=== PATIENT | female | born 1960 | race Caucasian/White ===

== ENCOUNTER 2018-06-05 16:25 | Inpatient (IN) | payer OTHER ==
[~2018-06-05] VITALS: Ht 149.9 cm; Wt 56.7 kg
[2018-06-05 16:36] VITALS: BP 154/75
--- NOTE | 2018-06-05 16:36 | NUR ---
Patient ambulated to bed 3. RN evaluating patient at bedside.
--- NOTE | 2018-06-05 16:55 | NUR ---
58 Y/O F PRESENTS TO THE ED W/C/O PAIN IN THE R UQ RADIATING TO THE R FLANK WITH NAUSEA [id number]. PT DENIES DIARRHEA. PT STATES, "I WENT TO [facility] AT THE BEGINING OF MAY AND THEY TOLD ME I HAVE A KIDNEY INFECTION. AND MY PCP TOLD ME I HAVE A URINE INFECTION." PT DENIES FEVER OR CHILLS. PT STATES PAIN IS 5/10 IN R UQ TO THE R FLANK. PT HAS PMH OF DM, KIDNEY INFECTION, AND UTI. 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 ALLERGIES TO PENICILLINS, NORCO AND MORPHINE. PT RESTING COMFORTABLY IN BED. NO S/S OF DISTRESS NOTED. SAFETY PRECAUTIONS IN PLACE. ER MADE AWARE
--- NOTE | 2018-06-05 17:00 | NUR ---
CONSET FOR BLOOD TRANSFUSION SIGNED AT THIS TIME. PT EDUCATED BY MD ON RISKS, SIDE EFFECTS, BENEFITS.
[2018-06-05] MEDS ORDERED: NACL 0.9% 1,000 ML IV SCH ×2 (17:11→19:14)
[2018-06-05] MEDS ORDERED: NACL 0.9% 1,000 ML IV ONE (17:11)
[2018-06-05] MEDS ORDERED: ONDANSETRON 4 MG/2 ML VIAL IVP ONE (17:15)
[2018-06-05] MEDS ORDERED: KETOROLAC 30 MG/ML VIAL IVP ONE (17:15)
[2018-06-05 18:05] LABS: APPEARANCE,URINE CLEAR (CLEAR); BILIRUBIN,URINE NEGATIVE (NEGATIVE); BLOOD, URINE 1+ (NEGATIVE); LEUKOCYTE ESTERASE ,URINE NEGATIVE (NEGATIVE); NITRITE, URINE NEGATIVE (NEGATIVE); UGLUCOSE TRACE (NEGATIVE)
[2018-06-05 18:06] LABS: BASOPHILS # (AUTO) 0.1 K/uL (0.00-0.22); BASOPHILS % (AUTO) 0.5 % (0.0-2.0); EOSINOPHILS # (AUTO) 0.1 K/uL (0-0.4); EOSINOPHILS % (AUTO) 0.7 % (0.0-4.0); HEMATOCRIT 21.8 % (36-48); LYMPHOCYTES # (AUTO) 1.4 K/uL (2.5-16.5); LYMPHOCYTES % (AUTO) 12.2 % (20.5-51.1); MEAN CORPUSCULAR HEMOGLOBIN 28 pg (27-31); MEAN CORPUSCULAR HGB CONC 32 g/dL (33-37); MEAN CORPUSCULAR VOLUME 88.7 fL (80-94); MONOCYTES # (AUTO) 0.8 K/uL (0.8-1.0); NEUTROPHILS % (AUTO) 79.6 % (42.2-75.2); PLATELET COUNT (AUTO) 288 K/uL (140-450); RED BLOOD CELL COUNT(AUTO) 2.46 MIL/uL (4.20-5.40); RED CELL DISTRIBUTION WIDTH 13.6 % (11.6-13.7); WHITE BLOOD COUNT (AUTO) 11.3 K/uL (4.8-10.8)
[2018-06-05 18:10] LABS: HEMOGLOBIN 6.9 g/dL (12.0-16.0)
[2018-06-05 18:20] LABS: ALBUMIN 1.5 g/dL (3.4-5.0); ANION GAP 12.6 (8-16); CARBON DIOXIDE 23.4 mmol/L (21-32); TOTAL BILIRUBIN 0.1 mg/dL (0.0-1.0)
--- NOTE | 2018-06-05 18:30 | NUR ---
PT RESTING COMFORTABLY IN BED. NO S/S OF DISTRESS NOTED
[2018-06-05 18:32] LABS: COLOR,URINE STRAW (YELLOW)
[2018-06-05 18:34] LABS: RBC,URINE 0-5 (RARE) /HPF (0-5); WBC,URINE NONE SEEN /HPF (0-5)
[2018-06-05] MEDS ORDERED: POTASSIUM CHL 30 MEQ/ D5-1/2NS 1,000 ML IV ONE (18:35)
[2018-06-05] MEDS ORDERED: ZOLPIDEM 5 MG TAB PO PRN (19:15)
[2018-06-05] MEDS ORDERED: KETOROLAC 15 MG/ML VIAL IVP PRN (19:15)
[2018-06-05] MEDS ORDERED: DOCUSATE SODIUM 100 MG GELCAP PO PRN (19:15)
[2018-06-05] MEDS ORDERED: ACETAMINOPHEN 325 MG TAB PO PRN (19:15)
--- NOTE | 2018-06-05 19:24 | NUR ---
XRAY AT BEDSIDE
[2018-06-05] MEDS ORDERED: DEXTROSE 50% 50 ML SYR IVP PRN (19:25)
--- NOTE | 2018-06-05 20:00 | NUR ---
RESIDENT AT THE BEDSIDE VASU RODRIGUEZ
[2018-06-05] MEDS: DEXT 5% / NACL 0.45% 1,000 ML IV SCH (20:10)
[2018-06-05 20:15] VITALS: BP 162/83
--- NOTE | 2018-06-05 20:15 | NUR ---
RECEIVED REPORT FROM ER NURSE LISA-SOSA. PT ARRIVED TO UNIT VIA GURNEY WITH AT BEDSIDE. PT AWAKE AND ALERT-AOX4, [place] ISLANDER SPEAKING PRIMARILY BUT CAN ALSO SPEAK SOME YI. IV SITE LEFT FA 20G-HARD STICK. IV CURRENTLY INFUSING DEXT/NACL-KCL @ 250ML WITH NS @ 100ML/HR TO DECREASE PAIN. PT TOLERATING WELL. SKIN INTACT HOWEVER EDEMATOUS ON BLE AND BUE, PITTING EDEMA +1. DISCUSSED PLAN OF CARE AND PT VERBALIZED UNDERSTANDING. WHITE BOARD UPDATED. SAFETY PRECAUTIONS IN PLACE. WILL CONTINUE TO MONITOR.
[2018-06-05 20:19] LABS: CHOL/HDL RATIO 6.6 (1-4.5); MAGNESIUM 1.2 mg/dL (1.8-2.4); PHOSPHORUS 3.5 mg/dL (2.5-4.9); THYROID STIMULATING HORMONE 7.84 uIU/mL (0.34-3.74)
[2018-06-05] MEDS ORDERED: POTASSIUM CHLORIDE 10 MEQ TABER PO ONE (20:20)
--- NOTE | 2018-06-05 20:20 | NUR ---
VITAL SIGNS TAKEN AND TOLERATED WELL. MRSA COLLECTED. NO S/S OF RESPIRATORY DISTRESS OR DISCOMFORT NOTED AT THIS TIME. WILL CONTINUE TO MONITOR.
[2018-06-05] MEDS ORDERED: LEVOFLOXACIN 750 MG/D5W PREMIX 150 ML IV SCH (20:30)
--- NOTE | 2018-06-05 20:31 | NUR ---
Patient will be admitted to care of DR. VINCENT. Admited to TELE. Will go to room 107 A. Belongings list completed. Report to ANT SWAN.
[2018-06-05 20:44] LABS: PROTHROMBIN TIME 10.7 secs (10.8-13.4)
[2018-06-05 20:56] LABS: BARBITURATE, URINE NEG. ng/ml (NEG <=200); BENZODIAZEPINE, URINE NEG. ng/mL (NEG <=200); CANNABINOID, URINE NEG. ng/mL (NEG <=50); COCAINE, URINE NEG. ng/mL (NEG <=300); OPIATE, URINE NEG. ng/mL (NEG <=2000); PHENCYCLIDINE SCREEN,URINE NEG. ng/mL (NEG <=25)
[2018-06-05] MEDS ORDERED: MAG SULF 2000 MG/WATER PREMIX 100 ML IV ONE (21:35)
[2018-06-05] MEDS ORDERED: FUROSEMIDE 40 MG/4 ML VIAL IVP SCH (21:40)
--- NOTE | 2018-06-05 21:50 | NUR ---
A SECOND IV LINE WAS ATTEMPTED BY CHARGE NURSE MARGARET SO THAT SCHEDULED MEDICATION CAN BE GIVEN IN ONE LINE AND THE BLOOD TRANSFUSION CAN BE GIVEN IN THE OTHER HOWEVER IT WAS UNSUCCESSFUL. PT IS A HARD STICK AND BLE AND BUE ARE EDEMATOUS.
[2018-06-05] MEDS: HYDROcodone/APAP 7.5/325 MG 1 TAB PO PRN (21:52)
[2018-06-05] MEDS: BLOOD GLUCOSE MONITORING 1 DEV DEV FS SCH (21:53)
--- NOTE | 2018-06-05 21:53 | NUR ---
PT C/O PAIN 04/30. NORCO WAS GIVEN AND TOLERATED WELL. WILL CONTINUE TO MONITOR.
--- NOTE | 2018-06-05 21:55 | NUR ---
BLOOD GLUCOSE 183- WILL ADMINISTER INSULIN COVERAGE.
[2018-06-05] MEDS: INSULIN LISPRO SLIDING SCALE 100 UNITS/ML VIAL SUBQ PRN (21:56)
--- NOTE | 2018-06-05 21:57 | NUR ---
INSULIN COVERAGE GIVEN. PT TOLERATED WELL. NO S/S OF RESPIRATORY DISTRESS OR DISCOMFORT NOTED AT THIS TIME. WILL CONTINUE TO MONITOR.
[2018-06-05] MEDS: metroNIDAZOLE 500 MG/NS PREMIX 100 ML IV SCH (22:00)
[2018-06-05] MEDS ORDERED: LISINOPRIL 10 MG TAB PO SCH (22:30)
--- NOTE | 2018-06-05 22:30 | NUR ---
ZESTRIL WAS GIVEN FOR INCREASED BLOOD PRESSURE. PT TOLERATED WELL. WILL CONTINUE TO MONITOR.
--- NOTE | 2018-06-05 22:45 | NUR ---
KARYN FROM [facility] AND ASKED TO FAX INFORMATIONS OF PT FOR HER SUCH H& P OR ER REPORT.SHE SAID ER FAX PT'S FACE SHEET FOR HER AND IT IS NOT ENOUGH.FAX # SHE GAVE ME [phone]. I ASKED ER ,NO BODY KNEW ANYTHING ABOUT FACE SHEET FAX.SO I TALKED TO TRICIA RN CANDY MAKER HELPER AND TOLD HER THAT I WILL NOT FAX ANY INFORMATION OF PT TO HER AND SHE CALLED AGAIN WILL TELL HER TO CALL CM IN THE MORNING.BUT SHE DIDN'T CALL BACK.
--- NOTE | 2018-06-05 23:10 | NUR ---
FIRST BAG OF RBC TRANSFUSION STARTED.
[2018-06-06] VITALS: BP 162/82
--- NOTE | 2018-06-06 01:30 | NUR ---
FIRST BAG OF RBC TRANSFUSION FINISHED. PT TOLERATED WELL. WILL ADMINISTER SECOND BAG.
--- NOTE | 2018-06-06 02:15 | NUR ---
SECOND BAG OF RBC TRANSFUSION STARTED. WILL CONTINUE TO MONITOR.
[2018-06-06 04:00] VITALS: BP 175/86
[2018-06-06] MEDS ORDERED: hydrALAZINE 25 MG TAB PO SCH (04:00)
[2018-06-06] MEDS: DEXT 5% / NACL 0.45% 1,000 ML IV SCH ×2 (04:07→12:04)
--- NOTE | 2018-06-06 05:20 | NUR ---
SECOND BAG OF RBC TRANSFUSION COMPLETED. PT TOLERATED WELL. WILL CONTINUE TO MONITOR.
[2018-06-06] MEDS: metroNIDAZOLE 500 MG/NS PREMIX 100 ML IV SCH ×3 (05:52→20:09)
--- NOTE | 2018-06-06 05:55 | NUR ---
SCHEDULED MEDICATION FLAGYL GIVEN. PT TOLERATED WELL. NO S/S OF RESPIRATORY DISTRESS OR DISCOMFORT NOTED AT THIS TIME. WILL CONTINUE TO MONITOR.
[2018-06-06] MEDS: BLOOD GLUCOSE MONITORING 1 DEV DEV FS SCH ×4 (05:56→20:56)
--- NOTE | 2018-06-06 06:00 | NUR ---
BLOOD GLUCOSE 100- NO INSULIN COVERAGE NEEDED.
--- NOTE | 2018-06-06 06:10 | NUR ---
PT C/O NAUSEA AND VOMITING. WILL ADMINISTER MEDICATION.
[2018-06-06] MEDS: HYDROcodone/APAP 7.5/325 MG 1 TAB PO PRN (06:18)
--- NOTE | 2018-06-06 06:20 | NUR ---
PT REFUSED ANTIEMETIC STATING THAT THOSE MEDICATIONS USUALLY MAKE HER VOMIT EVEN MORE. INSTEAD SHE ACCEPTED PAIN MEDICATION THAT WAS 6/10. WILL CONTINUE TO MONITOR.
--- NOTE | 2018-06-06 07:18 | NUR ---
ENDORSED PT CARE TO DAY SHIFT NURSE JASWINDER-RN FOR CONTINUITY OF CARE.
--- NOTE | 2018-06-06 07:19 | NUR ---
RECEIVED REPORT FROM ANTIQUE REFINISHER NURSE AT BEDSIDE FOR CONTINUITY OF CARE. PATIENT ASLEEP BUT AROUSABLE-AOX4, CITIZEN OF [place] SPEAKING PRIMARILY BUT CAN ALSO SPEAK SOME [place]LAND[place]. IV SITE LEFT FA 20G- PER ANTIQUE REFINISHER RN, HARD STICK. IV CURRENTLY INFUSING LEVAQUIN @100 ML/HR. PT TOLERATING WELL. SKIN INTACT HOWEVER EDEMATOUS ON BLE AND BUE, PITTING EDEMA +1. UPDATED BOARD, DISCUSSED PLAN OF CARE AND PT VERBALIZED UNDERSTANDING. ANTIQUE REFINISHER RN ENDORSED MAG RIDER 4MG. WILL RUN WHEN LEVAQUIN IVPB FINISHES. SAFETY PRECAUTIONS IN PLACE. CALL LIGHT WITHIN REACH. WILL CONTINUE TO MONITOR.
[2018-06-06 07:23] LABS: BASOPHILS # (AUTO) 0.1 K/uL (0.00-0.22); BASOPHILS % (AUTO) 1.1 % (0.0-2.0); EOSINOPHILS # (AUTO) 0.1 K/uL (0-0.4); EOSINOPHILS % (AUTO) 1.1 % (0.0-4.0); HEMATOCRIT 32.5 % (36-48); HEMOGLOBIN 10.5 g/dL (12.0-16.0); LYMPHOCYTES # (AUTO) 1.7 K/uL (2.5-16.5); LYMPHOCYTES % (AUTO) 13.4 % (20.5-51.1); MEAN CORPUSCULAR HEMOGLOBIN 29 pg (27-31); MEAN CORPUSCULAR HGB CONC 32 g/dL (33-37); MONOCYTES # (AUTO) 0.8 K/uL (0.8-1.0); MONOCYTES % (AUTO) 6.7 % (1.7-9.3); NEUTROPHILS # (AUTO) 9.6 K/uL (1.8-7.7); NEUTROPHILS % (AUTO) 77.7 % (42.2-75.2); PLATELET COUNT (AUTO) 304 K/uL (140-450); RED BLOOD CELL COUNT(AUTO) 3.61 MIL/uL (4.20-5.40); RED CELL DISTRIBUTION WIDTH 14.2 % (11.6-13.7); WHITE BLOOD COUNT (AUTO) 12.4 K/uL (4.8-10.8)
[2018-06-06 07:38] LABS: ANION GAP 13.6 (8-16); CARBON DIOXIDE 22.9 mmol/L (21-32); POTASSIUM 3.5 mmol/L (3.5-5.1)
[2018-06-06 07:51] VITALS: BP 142/73
[2018-06-06] MEDS: LISINOPRIL 10 MG TAB PO SCH (09:00)
[2018-06-06] MEDS: NICOTINE TRANSD SYS 14 MG/24 HR PATCH TD SCH (09:00)
[2018-06-06] MEDS ORDERED: LISINOPRIL 10 MG TAB PO SCH (09:00)
[2018-06-06] MEDS: LACTOBACILLUS RHAMNOSUS GG 1 EACH CAP PO SCH (09:02)
[2018-06-06] MEDS: ATORVASTATIN 20 MG TAB PO SCH (09:02)
[2018-06-06] MEDS: FUROSEMIDE 20 MG/2 ML VIAL IVP SCH ×2 (09:03→20:55)
--- NOTE | 2018-06-06 09:03 | NUR ---
WHEN DISCUSSING MEDICATIONS WITH PATIENT. PATIENT AGREED TO ALL MEDICATIONS AFTER EXPLANATIONS. DURING ADMINISTERING MEDICATIONS, PATIENT REFUSED LISINOPRIL STATING THAT IT MAKES HER NAUSEATED. PATIENT STATED SAME WITH NICOTINE PATCH. EDUCATED PATIENT ON WHY SHE WAS RECEIVING THOSE MEDICATIONS, SHE RESTATED HER REFUSAL. ORDERED MEDICATIONS GIVEN. PATIENT TOLERATED THEM WELL. SAFETY PRECAUTION IN PLACE, CALL LIGHT WITHIN REACH, WILL CONTINUE TO MONITOR PATIENT.
--- NOTE | 2018-06-06 09:12 | NUR ---
PATIENT HAS BEEN SCREENED AND CATEGORIZED MODERATE NUTRITION RISK. PATIENT WILL BE SEEN WITHIN 3-5 DAYS OF ADMISSION. 06/08/18 06/10/[address]
--- NOTE | 2018-06-06 09:20 | NUR ---
PATIENT AMBULATED TO BATHROOM ON UNSTEADY GAIT WITH AND RN ASSISTING. PATIENT VOIDED. PATIENT TIRED, RESPIRATIONS EVEN AND UNLABORED. NO SIGNS OF DISTRESS OR COMPLAINTS OF PAIN AT THE MOMENT. PATIENT CURRENTLY GETTING ULTRASOUND. WILL AWAIT FOR RESULTS. SAFETY PRECAUTION IN PLACE, CALL LIGHT WITHIN REACH, WILL CONTINUE TO MONITOR PATIENT.
--- NOTE | 2018-06-06 09:25 | NUR ---
INITIAL REVIEW ER REPORT, H&P, PROGRESS NOTE AND ADMIT ORDER TO SHAUN [phone] PHONE [phone] X [phone] JERMAINE
--- NOTE | 2018-06-06 09:26 | NUR ---
pt having procedure
--- NOTE | 2018-06-06 09:28 | NUR ---
MAG STARR ADMINISTERED. PATIENT TOLERATING IT WELL. DR. ROPER IN TO SPEAK TO THE PATIENT AND HER , HARPREET, AT BEDSIDE TO EXPLAIN PLAN OF CARE FOR TODAY, PATIENT AND HARPREET VERBALIZED UNDERSTANDING. WILL CONTINUE TO MONITOR PATIENT.
[2018-06-06] MEDS ORDERED: MAGNESIUM SULFATE 4GM in STERILE WATER 100 ML PREMIX IV SCH ×2 (10:00→13:00)
--- NOTE | 2018-06-06 10:23 | NUR ---
RECEIVED A CALL FROM MELLISSA ACQUISITIONS LOGISTICS ANALYST. SHE SAID SHE GOT A CALL FROM FARNAZ AT [facility] THAT REVIEWS TO TO [facility]. I CALLED [facility] AND SPOKE WITH MICK, THE OSWALD. FAXED INITIAL REVIEW TO HER AT [phone] PHONE MICK [phone]. SHE SAID THEY ARE FULL RISK AND REVIEWS JUST GO TO HER.
--- NOTE | 2018-06-06 11:33 | NUR ---
PHYSICAL THERAPY IN WITH PATIENT. HARPREET BY BEDSIDE. PATIENT INCONTINENT IN BED, LINENS AND GOWN CHANGED. PATIENT AMBULATED TO BATHROOM WITH WALKER WITH PHYSICAL THERAPY. WILL WAIT FOR THEIR RECOMMENDATION. WILL CONTINUE TO MONITOR PATIENT.
[2018-06-06] MEDS ORDERED: MAG SULF 2000 MG/WATER PREMIX 100 ML IV ONE (11:50)
--- NOTE | 2018-06-06 11:50 | NUR ---
ARCHIE, [employer] TECH CALLED ABOUT PATIENT'S HIDA SCAN. SHE WILL BE HERE AND START THE SCAN AT AROUND 1500. INFORMED PATIENT AND HER HARPREET, THEY VERBALIZED UNDERSTANDING. DR ROPER AWARE. PATIENT'S BLOOD SUGAR 94, NO COVERAGE NEEDED. PATIENT SITTING IN CHAIR AT SIDE OF BED. NO SIGNS OF DISTRESS OR SOB NOTED ON ROOM AIR. PATIENT DENIES PAIN OR NAUSEA. SAFETY PRECAUTION IN PLACE, WILL CONTINUE TO MONITOR PATIENT.
[2018-06-06 12:00] VITALS: BP 157/69
[2018-06-06 15:09] LABS: T4 (THYROXINE) 6.1 ug/dL (4.5-12.0)
--- NOTE | 2018-06-06 15:35 | NUR ---
PATIENT WHEELED OFF FLOOR TO GO TO RADIOLOGY FOR HIDA SCAN. PATIENT IN STABLE CONDITION.
[2018-06-06] MEDS ORDERED: MORPHINE SULFATE 2 MG/ML SYR IVP PRN (15:45)
--- NOTE | 2018-06-06 17:15 | NUR ---
PATIENT BACK FROM HIDA SCAN. WILL WAIT FOR RESULTS. INFORMED MD TO SEE IF PATIENT CAN HAVE DINNER. WAITING FOR ORDERS.
[2018-06-06 17:30] VITALS: BP 173/89
--- NOTE | 2018-06-06 17:55 | NUR ---
DR JOSHI Y IN TO SEE THE PATIENT. WILL AWAIT FOR HIS RECOMMENDATIONS.
--- NOTE | 2018-06-06 18:05 | NUR ---
PATIENT WHEELED OFF TO XRAY FOR LAST HIDA SCAN PICTURE.
--- NOTE | 2018-06-06 18:20 | NUR ---
PATIENT BACK FROM RADIOLOGY. CARDIAC DINNER BROUGHT FROM DIETARY, PATIENT SITTING UP ON SIDE OF BED EATING DINNER. WILL CONTINUE TO MONITOR PATIENT.
--- NOTE | 2018-06-06 19:20 | NUR ---
REPORT GIVEN TO SECURITY INSTALLATION TECHNICIAN NURSE AT BEDSIDE FOR CONTINUITY OF CARE. PATIENT IN STABLE CONDITION. FAMILY AT BEDSIDE.
--- NOTE | 2018-06-06 19:21 | NUR ---
RECEIVED REPORT FROM DAY SHIFT NURSE JASWINDER-RN AT BEDSIDE FOR CONTINUITY OF CARE. PT-AOX4, BHUTANESE SPEAKING PRIMARILY BUT CAN ALSO SPEAK SOME NIGERIEN. FAMILY AT BEDSIDE. IV SITE LEFT FA 20G- HARD STICK. IV KCL @250ML AND NS 0.9% @100 ML/HR. PT TOLERATING WELL. SKIN INTACT HOWEVER EDEMATOUS ON BLE AND BUE, PITTING EDEMA +1. UPDATED BOARD, DISCUSSED PLAN OF CARE AND PT VERBALIZED UNDERSTANDING. SAFETY PRECAUTIONS IN PLACE. CALL LIGHT WITHIN REACH. WILL CONTINUE TO MONITOR.
[2018-06-06 20:00] VITALS: BP 183/96
--- NOTE | 2018-06-06 20:00 | NUR ---
VITAL SIGNS TAKEN AND TOLERATED WELL. BLOOD PRESSURE ELEVATED-WILL MEDICATE. NO S/S OF RESPIRATORY DISTRESS OR DISCOMFORT. WILL CONTINUE TO MONITOR.
--- NOTE | 2018-06-06 20:10 | NUR ---
SCHEDULED MEDICATION FLAGYL ADMINISTERED. NO S/S OF RESPIRATORY DISTRESS OR DISCOMFORT NOTED AT THIS TIME. WILL CONTINUE TO MONITOR.
[2018-06-06] MEDS: hydrALAZINE 20 MG/ML VIAL IVP PRN (20:56)
[2018-06-06] MEDS: INSULIN LISPRO SLIDING SCALE 100 UNITS/ML VIAL SUBQ PRN (21:08)
--- NOTE | 2018-06-06 21:10 | NUR ---
SCHEDULED MEDICATION LASIX, APRESOLINE FOR ELEVATED BP GIVEN. BLOOD GLUCOSE 183-INSULIN COVERAGE GIVEN AND TOLERATED WELL. NO S/S OF RESPIRATORY DISTRESS OR DISCOMFORT NOTED AT THIS TIME. WILL CONTINUE TO MONITOR.
[2018-06-06] MEDS: LEVOFLOXACIN 750 MG/D5W PREMIX 150 ML IV SCH (21:43)
--- NOTE | 2018-06-06 21:45 | NUR ---
SCHEDULED MEDICATION LEVAQUIN GIVEN AND TOLERATED WELL. NO S/S OF RESPIRATORY DISTRESS OR DISCOMFORT NOTED AT THIS TIME. WILL CONTINUE TO MONITOR.
--- NOTE | 2018-06-06 22:10 | NUR ---
PT C/O INSOMNIA. AMBIEN GIVEN AND TOLERATED WELL. NO S/S OF RESPIRATORY DISTRESS OR DISCOMFORT NOTED AT THIS TIME. WILL CONTINUE TO MONITOR.
[2018-06-07] VITALS: BP 138/54
--- NOTE | 2018-06-07 | NUR ---
VITAL SIGNS TAKEN AND TOLERATED WELL. NO S/S OF RESPIRATORY DISTRESS OR DISCOMFORT NOTED AT THIS TIME. WILL CONTINUE TO MONITOR.
--- NOTE | 2018-06-07 02:00 | NUR ---
PT SLEEPING AT THIS TIME. NO S/S OF RESPIRATORY DISTRESS OR DISCOMFORT NOTED AT THIS TIME. WILL CONTINUE TO MONITOR.
[2018-06-07 04:00] VITALS: BP 166/70
--- NOTE | 2018-06-07 04:00 | NUR ---
VITAL SIGNS TAKEN AND TOLERATED WELL. BP BEGINNING TO RISE AGAIN. NO S/S OF RESPIRATORY DISTRESS OR DISCOMFORT NOTED AT THIS TIME. WILL CONTINUE TO MONITOR.
[2018-06-07] MEDS: DEXT 5% / NACL 0.45% 1,000 ML IV SCH (04:12)
[2018-06-07] MEDS: metroNIDAZOLE 500 MG/NS PREMIX 100 ML IV SCH ×3 (04:12→20:03)
--- NOTE | 2018-06-07 04:15 | NUR ---
SCHEDULED MEDICATION FLAGYL GIVEN AND TOLERATED WELL. NO S/S OF RESPIRATORY DISTRESS OR DISCOMFORT NOTED AT THIS TIME. WILL CONTINUE TO MONITOR.
--- NOTE | 2018-06-07 04:45 | NUR ---
RACK WORKER STEPHEN INITIATED NEW IV SITE ON LEFT HAND 24G DUE TO LEFT FA BECOMING INFILTRATED. PT TOLERATED WELL.
[2018-06-07] MEDS: BLOOD GLUCOSE MONITORING 1 DEV DEV FS SCH ×4 (05:40→19:59)
--- NOTE | 2018-06-07 05:40 | NUR ---
BLOOD GLUCOSE 112-NO INSULIN COVERAGE NEEDED.
--- NOTE | 2018-06-07 07:29 | NUR ---
RECEIVED BEDSIDE REPORT FROM SOSA DEE. PT AWAKE IN BED ABLE TO MAKE NEEDS KNOWN. ON RA, PT IS NPO SINCE MIDNIGHT FOR HIDA SCAN. V/S TAKEN TOLERATED WELL. IV IN LEFT WRIST 24 G PATENT, PT C/O PAIN 3/10 IN RIGHT SIDE. WILL MEDICATE ACCORDING TO DRS ORDER. CALL RADIOLOGY TO CONSULT WITH PAIN MANAGEMENT PRIOR TO HIDA SCAN, RADIOLOGY GHAZAL STATED I WILL RECEIVE CALL BACK. EXPLAINED PLAN OF CARE TO PT, CALL WITHIN REACH WILL CONTINUE TO MONITOR. Addendum: 06/07/18 at 0858 by Myriam Hager RN ERROR PT HAD HIDA SCAN 06/06
--- NOTE | 2018-06-07 07:29 | NUR ---
ENDORSED PT CARE TO DAY SHIFT NURSE SUMMER-RN FOR CONTINUITY OF CARE.
[2018-06-07 08:31] VITALS: BP 163/84
[2018-06-07] MEDS: NICOTINE TRANSD SYS 14 MG/24 HR PATCH TD SCH (09:00)
[2018-06-07] MEDS: FUROSEMIDE 20 MG/2 ML VIAL IVP SCH (09:21)
[2018-06-07] MEDS: LACTOBACILLUS RHAMNOSUS GG 1 EACH CAP PO SCH (09:21)
[2018-06-07] MEDS: LISINOPRIL 10 MG TAB PO SCH (09:21)
[2018-06-07] MEDS: ATORVASTATIN 20 MG TAB PO SCH (09:22)
[2018-06-07] MEDS: CARVEDILOL 3.125 MG TAB PO SCH ×2 (09:23→20:51)
--- NOTE | 2018-06-07 09:27 | NUR ---
PT REFUSED NICOTINE PATCH AND TORADOL Addendum: 06/07/18 at 1251 by Myriam Hager RN PT STATES SHE DOES NOT NEED NICOTINE PATCH ANYMORE SHE HAS QUIET SMOKING WITHOUT IT, PT WILL TRY TO RELAX STATES PAIN MEDICATION MAKES HER SEE THINGS. OFFERED WARM BLANKET FOR PAIN MANAGEMENT AND REPOSITIONED FOR COMFORT.
[2018-06-07 10:03] LABS: BASOPHILS % (AUTO) 0.4 % (0.0-2.0); EOSINOPHILS # (AUTO) 0.1 K/uL (0-0.4); EOSINOPHILS % (AUTO) 0.9 % (0.0-4.0); HEMATOCRIT 32.5 % (36-48); HEMOGLOBIN 10.7 g/dL (12.0-16.0); LYMPHOCYTES # (AUTO) 1.1 K/uL (2.5-16.5); LYMPHOCYTES % (AUTO) 11.4 % (20.5-51.1); MEAN CORPUSCULAR HEMOGLOBIN 29 pg (27-31); MEAN CORPUSCULAR HGB CONC 33 g/dL (33-37); MEAN CORPUSCULAR VOLUME 88.6 fL (80-94); MONOCYTES # (AUTO) 0.9 K/uL (0.8-1.0); MONOCYTES % (AUTO) 9.2 % (1.7-9.3); NEUTROPHILS # (AUTO) 7.7 K/uL (1.8-7.7); NEUTROPHILS % (AUTO) 78.1 % (42.2-75.2); PLATELET COUNT (AUTO) 312 K/uL (140-450); RED BLOOD CELL COUNT(AUTO) 3.67 MIL/uL (4.20-5.40); RED CELL DISTRIBUTION WIDTH 14.3 % (11.6-13.7); WHITE BLOOD COUNT (AUTO) 9.9 K/uL (4.8-10.8)
[2018-06-07 10:26] LABS: ANION GAP 12.2 (8-16); CARBON DIOXIDE 22.3 mmol/L (21-32); CREATININE 1.1 mg/dL (0.6-1.3); POTASSIUM 3.5 mmol/L (3.5-5.1)
[2018-06-07 10:34] LABS: MAGNESIUM 1.9 mg/dL (1.8-2.4); PHOSPHORUS 3.5 mg/dL (2.5-4.9)
--- NOTE | 2018-06-07 10:40 | NUR ---
PT AMBULATED AROUND ROOM X1 TOLERATED WELL, URINATED X1 NO BM. PT ATE BREAKFAST TOLERATED WELL. PT REQUESTED TO AMBULATE AROUND ROOM. CALL LIGHT WITHIN REACH WILL CONTINUE TO MONITOR.
[2018-06-07] MEDS: NACL 0.9% 1,000 ML IV SCH (11:23)
--- NOTE | 2018-06-07 11:52 | NUR ---
ELEVATED PTS LEGS WITH TWO PILLOWS PER MD REQUEST.
[2018-06-07 12:00] VITALS: BP 160/73
[2018-06-07] MEDS ORDERED: ALBUTEROL SULFATE/IPRATROPIU 3 ML SOL IH PRN (12:10)
--- NOTE | 2018-06-07 13:20 | NUR ---
PT HAD ONE LARGE BM, COLLECTED STOOL SAMPLE FOR OCCULT BLOOD. SENT TO LAB.
[2018-06-07] MEDS: ALBUTEROL SULFATE/IPRATROPIU 3 ML SOL IH SCH ×2 (13:21→19:03)
--- NOTE | 2018-06-07 13:54 | NUR ---
CM NOTE CONCURRENT REVIEW FAXED TO [facility] [phone] [facility] # [phone]
--- NOTE | 2018-06-07 15:00 | NUR ---
STOPPED IV FLUIDS AND REMOVED BEDSIDE WATER FROM PTS ROOM PER MD ORDER.
[2018-06-07] MEDS ORDERED: LANTUS SC ×2 (15:49)
[2018-06-07] MEDS ORDERED: FERR325E14 PO (15:49)
[2018-06-07] MEDS ORDERED: SIMV20TA1 PO (15:49)
[2018-06-07] MEDS ORDERED: BENA20TA PO (15:49)
[2018-06-07] MEDS ORDERED: ASPI81CT89 PO (15:51)
[2018-06-07 16:00] VITALS: BP 186/86
--- NOTE | 2018-06-07 16:00 | NUR ---
PT BP 182/84 HR 102 REASSESSED BP 186/86 HR 103. WILL MEDICATE WITH HYDRALAZINE ACCORDING TO DRS ORDER.
[2018-06-07] MEDS: hydrALAZINE 20 MG/ML VIAL IVP PRN ×2 (16:01→17:19)
--- NOTE | 2018-06-07 16:07 | NUR ---
PHYSICAL THERAPY CO-SIGN The Physical Therapy Progress Notes documented by Parts Room Assistant have been reviewed. Reviewed/Co-Signed by: Lupe Hughes PT Documentation Done by:ANA DARBY DISABILITY RATER POC REVIEWED W/ DISABILITY RATER; WILL BENEFIT W/ P.T. AFTER ACUTE STAY, PEDIATRIC/SUZY FWW FOR HOME USE. Addendum: 06/07/18 at 1608 by Lupe Hughes PT Amended: Links added.
[2018-06-07] MEDS ORDERED: INSULIN LANTUS 100 UNITS/ML 10 ML VIAL SUBQ SCH (17:00)
--- NOTE | 2018-06-07 17:01 | NUR ---
PT REASSESSED AFTER HYDRALAZINE GIVEN, BP: 148/54 HR 108. WILL CONTINUE TO MONITOR, CALL LIGHT WITHIN REACH.
--- NOTE | 2018-06-07 17:25 | NUR ---
PT REFUSED DUE MEDICATION STATED "NO, NO MORE MEDICATIONS". WILL HOLD DUE INSULIN.
[2018-06-07] MEDS: ONDANSETRON 4 MG/2 ML VIAL IM/IVP PRN (18:56)
--- NOTE | 2018-06-07 19:18 | NUR ---
ENDORSED PT TO SOSA DEE, PT LUANN.
--- NOTE | 2018-06-07 19:19 | NUR ---
RECEIVED REPORT FROM DAY SHIFT NURSE MARIAN-RN AT BEDSIDE FOR CONTINUITY OF CARE. PT-AOX4, SYRIAC SPEAKING PRIMARILY BUT CAN ALSO SPEAK SOME TAMAZIGHT. FAMILY AT BEDSIDE. IV SITE LEFT WRIST 24G- HARD STICK AND SL. SKIN INTACT HOWEVER EDEMATOUS ON BLE AND BUE, PITTING EDEMA +1. UPDATED BOARD, DISCUSSED PLAN OF CARE AND PT VERBALIZED UNDERSTANDING. SAFETY PRECAUTIONS IN PLACE. CALL LIGHT WITHIN REACH. WILL CONTINUE TO MONITOR.
--- NOTE | 2018-06-07 19:50 | NUR ---
BLOOD GLUCOSE 128-NO INSULIN COVERAGE NEEDED.
[2018-06-07 20:00] VITALS: BP 150/64
--- NOTE | 2018-06-07 20:00 | NUR ---
VITAL SIGNS TAKEN AND TOLERATED WELL. NO S/S OF RESPIRATORY DISTRESS OR DISCOMFORT NOTED AT THIS TIME. WILL CONTINUE TO MONITOR.
--- NOTE | 2018-06-07 20:05 | NUR ---
SCHEDULED MEDICATION FLAGYL GIVEN AND TOLERATED WELL. NO S/S OF RESPIRATORY DISTRESS OR DISCOMFORT NOTED AT THIS TIME. WILL CONTINUE TO MONITOR.
--- NOTE | 2018-06-07 20:55 | NUR ---
SCHEDULED MEDICATION COREG GIVEN AND TOLERATED WELL. NO S/S OF RESPIRATORY DISTRESS OR DISCOMFORT NOTED AT THIS TIME. WILL CONTINUE TO MONITOR.
[2018-06-07] MEDS ORDERED: SIMVASTATIN 20 MG TAB PO SCH (21:00)
[2018-06-07] MEDS: LEVOFLOXACIN 750 MG/D5W PREMIX 150 ML IV SCH (22:13)
--- NOTE | 2018-06-07 22:15 | NUR ---
SCHEDULED MEDICATION LEVAQUIN GIVEN AND TOLERATED WELL. NO S/S OF RESPIRATORY DISTRESS OR DISCOMFORT NOTED AT THIS TIME. WILL CONTINUE TO MONITOR.
--- NOTE | 2018-06-07 23:45 | NUR ---
VITAL SIGNS TAKEN AND TOLERATED WELL. NO S/S OF RESPIRATORY DISTRESS. PT C/O PAIN 04/30-WILL MEDICATE.
[2018-06-07] MEDS: HYDROcodone/APAP 7.5/325 MG 1 TAB PO PRN (23:48)
--- NOTE | 2018-06-07 23:50 | NUR ---
PT C/O PAIN 04/30-MEDICATED WITH NORCO. PT TOLERATED WELL. NO S/S OF RESPIRATORY DISTRESS NOTED AT THIS TIME. WILL CONTINUE TO MONITOR.
[2018-06-08] VITALS: BP 164/66
--- NOTE | 2018-06-08 02:00 | NUR ---
PT RESTING IN BED TALKING WITH PT IN BED B. PT REQUESTING CHICKEN BOUILLON SOUP TO WARM UP. GIVEN AND PT TOLERATED WELL. NO S/S OF RESPIRATORY DISTRESS OR DISCOMFORT NOTED AT THIS TIME. WILL CONTINUE TO MONITOR.
[2018-06-08] MEDS: NACL 0.9% 1,000 ML IV SCH (02:55)
--- NOTE | 2018-06-08 03:25 | NUR ---
PT C/O NAUSEA CAUSED BY NORCO PAIN MEDICATION GIVEN EARLIER. WILL MEDICATE WITH ZOFRAN.
[2018-06-08] MEDS: ONDANSETRON 4 MG/2 ML VIAL IM/IVP PRN (03:28)
--- NOTE | 2018-06-08 03:30 | NUR ---
MEDICATED PT WITH ZOFRAN FOR NAUSEA AND VOMITING. WILL CONTINUE TO MONITOR.
[2018-06-08 04:00] VITALS: BP 150/65
--- NOTE | 2018-06-08 04:00 | NUR ---
VITAL SIGNS TAKEN AND TOLERATED WELL. NO S/S OF RESPIRATORY DISTRESS OR DISCOMFORT NOTED AT THIS TIME. WILL CONTINUE TO MONITOR.
[2018-06-08] MEDS: metroNIDAZOLE 500 MG/NS PREMIX 100 ML IV SCH (04:37)
--- NOTE | 2018-06-08 04:40 | NUR ---
SCHEDULED MEDICATION FLAGYL GIVEN AND TOLERATED WELL. NO S/S OF RESPIRATORY DISTRESS OR DISCOMFORT NOTED AT THIS TIME. WILL CONTINUE TO MONITOR.
--- NOTE | 2018-06-08 04:45 | NUR ---
BLOOD GLUCOSE 110-NO INSULIN COVERAGE NEEDED.
--- NOTE | 2018-06-08 06:00 | NUR ---
PT SLEEPING IN BED. NO S/S OF RESPIRATORY DISTRESS OR DISCOMFORT NOTED AT THIS TIME. WILL CONTINUE TO MONITOR.
[2018-06-08] MEDS: BLOOD GLUCOSE MONITORING 1 DEV DEV FS SCH ×2 (06:04→12:22)
--- NOTE | 2018-06-08 07:09 | NUR ---
ENDORSED PT CARE TO DAY SHIFT NURSE EDUARD FOR CONTINUITY OF CARE
--- NOTE | 2018-06-08 07:15 | NUR ---
RECEIVED PT FROM EYE SURGEON NURSE, PT IS AWAKE AND LYING ON THE BED, SIDE RAILS ARE UP AND CALL LIGHT WITHIN REACH. PT HAS AN IV LINE ON THE LEFT WRIST G. 24 AND NON-INTACT. IV LINE WAS REMOVED. NO SIGNNOF DSITRESS NOTED ON THE PT. WILL CONTINUE TO MONITOR.
[2018-06-08] MEDS: ALBUTEROL SULFATE/IPRATROPIU 3 ML SOL IH SCH ×2 (07:26→13:17)
--- NOTE | 2018-06-08 07:30 | NUR ---
AWAKE AND ALERT RESPONSIVE HHN THERAPY NOT GIVEN DUE TO NAUSEA HARLEY/RN NOTIFIED
[2018-06-08 07:54] LABS: BASOPHILS # (AUTO) 0.1 K/uL (0.00-0.22); BASOPHILS % (AUTO) 0.9 % (0.0-2.0); EOSINOPHILS # (AUTO) 0.1 K/uL (0-0.4); EOSINOPHILS % (AUTO) 1.2 % (0.0-4.0); HEMOGLOBIN 9.9 g/dL (12.0-16.0); LYMPHOCYTES # (AUTO) 1.4 K/uL (2.5-16.5); LYMPHOCYTES % (AUTO) 16.1 % (20.5-51.1); MEAN CORPUSCULAR HEMOGLOBIN 30 pg (27-31); MEAN CORPUSCULAR HGB CONC 33 g/dL (33-37); MEAN CORPUSCULAR VOLUME 89.7 fL (80-94); MONOCYTES % (AUTO) 11.1 % (1.7-9.3); NEUTROPHILS # (AUTO) 6.2 K/uL (1.8-7.7); NEUTROPHILS % (AUTO) 70.7 % (42.2-75.2); PLATELET COUNT (AUTO) 260 K/uL (140-450); RED BLOOD CELL COUNT(AUTO) 3.34 MIL/uL (4.20-5.40); RED CELL DISTRIBUTION WIDTH 14.7 % (11.6-13.7); WHITE BLOOD COUNT (AUTO) 8.7 K/uL (4.8-10.8)
[2018-06-08 08:00] VITALS: BP 153/84
[2018-06-08 08:21] LABS: ANION GAP 11.7 (8-16); CARBON DIOXIDE 23.4 mmol/L (21-32); CREATININE 1.2 mg/dL (0.6-1.3); POTASSIUM 3.1 mmol/L (3.5-5.1)
[2018-06-08 08:32] LABS: MAGNESIUM 1.5 mg/dL (1.8-2.4); PHOSPHORUS 4.1 mg/dL (2.5-4.9)
--- NOTE | 2018-06-08 08:40 | NUR ---
PT WAS TRANSFERRED TO [facility], HEART MONITOR WAS REMOVED AND PLACED IN THE BASKET BIN.
--- NOTE | 2018-06-08 08:46 | NUR ---
INFORMED DR. ROPER OF THE PT'S POTASSIUM LEVEL WHICH IS 3.3 AND MAGNESIUM LEVEL OF 1.1. MD ACKNOWLEDGED AND WILL PLACE AN ORDER.
[2018-06-08] MEDS ORDERED: MAG SULF 2000 MG/WATER PREMIX 50 ML IV ONE (08:50)
[2018-06-08] MEDS ORDERED: INSULIN LANTUS 100 UNITS/ML 10 ML VIAL SUBQ SCH (09:00)
[2018-06-08] MEDS ORDERED: KCL 20 MEQ/WATER INJ PREMIX 100 ML IV SCH (09:00)
[2018-06-08] MEDS ORDERED: FUROSEMIDE 20 MG/2 ML VIAL IVP SCH (09:00)
[2018-06-08] MEDS ORDERED: BENAZEPRIL 20 MG TAB PO SCH (09:00)
[2018-06-08] MEDS: NICOTINE TRANSD SYS 14 MG/24 HR PATCH TD SCH (09:00)
[2018-06-08] MEDS ORDERED: FERROUS SULFATE 325 MG TABEC PO SCH (09:00)
[2018-06-08] MEDS ORDERED: ASPIRIN 81 MG TAB.CHEW PO SCH (09:00)
[2018-06-08] MEDS: ATORVASTATIN 20 MG TAB PO SCH (09:37)
[2018-06-08] MEDS: LACTOBACILLUS RHAMNOSUS GG 1 EACH CAP PO SCH (09:38)
[2018-06-08] MEDS: CARVEDILOL 3.125 MG TAB PO SCH (09:38)
--- NOTE | 2018-06-08 10:31 | NUR ---
CHARGE NURSE KATHRYN, ASSISTED IN STARTING AN IV LINE TO THE PT, ATTEMPTED 2X BUT PT REFUSED TO HAVE ABN IV LINE INSERTED. DR. ROPER INFORMED OF THE PT'S REFUSAL.
--- NOTE | 2018-06-08 10:58 | NUR ---
MIGUELITO FROM CASE MANAGEMENT CALLED AND INFORMED THAT THE PT WAS ACCEPTED BY [facility] IS A HOME [facility] AND SAID THAT THE PT NEEDS TO MAKE A FOLLOW TO A OVERNIGHT ASSOCIATE, DR. PRADO AND CALL THE OFFICE FOR AN APPOINTMENT. MD'S CONTACT NO. AND ADDRESS WAS WRITTEN DOWN ON THE DISCHARGE PAPERS AND PT AND WAS INFORMED ABOUT IT. PT AND VERBALIZED UNDERSTANDING.
--- NOTE | 2018-06-08 11:06 | NUR ---
OSWALD ROWLEY RECEIVED ORDER FOR HH. FAXED ORDER TO [facility] [phone] AND SPOKE WITH OSWALD JEFFERS PH# AND GAVE HER A VERBAL CLINICAL UPDATE ON THE PATIENT AND SHE SAID TO JUST FAX HER PROGRESS NOTES AND DC SUMMARY. FAXED PROGRESS NOTES AND DC SUMMARY TO [facility]. PER [facility] OSWALD JEFFERS, PATIENT'S HH HAS BEEN ARRANGED WITH [facility] PH# [phone] AND THAT THEY ARE AWARE THAT PATIENT IS BEING DISCHARGED TODAY. PER OSWALD JEFFERS, PATIENT WILL HAVE TO CALL DR. PRADO'S CLINIC TO SET UP FOR GI OUTPATIENT FOLLOW UP PH# [phone], ADDRESS: [address] [place] [address]. HARLEY SWAN AWARE.
[2018-06-08] MEDS ORDERED: POTASSIUM CHLORIDE 10 MEQ TABER PO SCH (11:30)
[2018-06-08] MEDS ORDERED: MAGNESIUM OXIDE 400 MG TAB PO SCH (11:30)
--- NOTE | 2018-06-08 11:33 | NUR ---
CALLED AND SPOKE TO DR. ROPER AND INFORMED HIM THAT THE PT'S LASIX IN THE EMAR SHOULD BE GIVEN IV PUSH BUT THE PT ALREADY REFUSED TO HAVE AN IV LINE INSERTED. DR. ROPER SAID THAT HE WILL MODIFY THE ORDER FOR THE SAID MEDICATIONS NAMELY LASIX, MAGNESIUM AND POTASSIUM, WILL CHANGE THE ROUTE FROM IV TO ORAL. ACKNOWLEDGED AND WILL FOLLOW THROUGH WITH THE MD ORDER.
[2018-06-08] MEDS ORDERED: SIMV20TA1 PO (11:39)
[2018-06-08] MEDS ORDERED: BENA20TA PO (11:39)
[2018-06-08] MEDS ORDERED: ASPI81CT89 PO (11:39)
[2018-06-08] MEDS ORDERED: LANTUS SC ×2 (11:39)
[2018-06-08] MEDS ORDERED: CARV3.122 PO (11:39)
[2018-06-08] MEDS ORDERED: FURO-572 PO (11:39)
[2018-06-08] MEDS ORDERED: FERR325E14 PO (11:39)
[2018-06-08] MEDS ORDERED: LEVO750T2 PO (11:42)
[2018-06-08] MEDS ORDERED: ASCO1CAP75 PO (11:42)
[2018-06-08 12:00] VITALS: BP 148/80
[2018-06-08] MEDS ORDERED: FUROSEMIDE 40 MG TAB PO SCH (12:00)
[2018-06-08] MEDS ORDERED: MAGNESIUM SULFATE 1GM in DEXTROSE 5% 100 ML PREMIX IV SCH (12:00)
--- NOTE | 2018-06-08 14:13 | NUR ---
PHYSICAL THERAPY CO-SIGN The Physical Therapy Progress Notes documented by Raw Finish Mill Operator have been reviewed. I CONCUR W/BEAM WARPER NOTE; CONT PER TX PLAN Reviewed/Co-Signed by: Samira Miramontes, PT Documentation Done by: FENG FUENTES, BEAM WARPER Addendum: 06/08/18 at 1414 by Samira Miramontes PT Amended: Links added.
--- NOTE | 2018-06-08 14:50 | NUR ---
DISCHARGED PTY OF THE VIA WHEELCHAIR AND BEING WHEELED BY NEHA BARNES. DISCHARGED INSTRUCTIONS, TEACHING AND MEDICATION PRESCRIPTION GIVEN AND DISCUSSED FOLLOW UP APPOINTMENT TO THE GI MD. PT AND VERBALIZED UNDERSTANDING. ARM BANDS AND IV LINE REMOVED. PT IS STABLE AT THIS TIME.
[2018-06-09 10:02] LABS: FERRITIN 685 ng/mL (15-150); TRANSFERRIN 153 mg/dL (200-370)
== END 2018-06-08 14:50 | disposition home or self-care (01) | DRG 720 ==
LOC: MED 16:25 → MTU 19:19
PROVIDERS: ADMIT General Practice; ATTEND General Practice
PROC: 30233N1 Transfusion of Nonautologous Red Blood Cells into Peripheral Vein, Percutaneous Approach (ICD-10-PCS; principal; 2018-06-05)
DX: A41.9 Sepsis, unspecified organism (principal); N17.0 Acute kidney failure with tubular necrosis; E43 Unspecified severe protein-calorie malnutrition; I50.43 Acute on chronic combined systolic (congestive) and diastolic (congestive) heart failure; J18.9 Pneumonia, unspecified organism; E87.8 Other disorders of electrolyte and fluid balance, not elsewhere classified; I11.0 Hypertensive heart disease with heart failure; K86.1 Other chronic pancreatitis; E46 Unspecified protein-calorie malnutrition; E11.65 Type 2 diabetes mellitus with hyperglycemia; D64.9 Anemia, unspecified; E83.42 Hypomagnesemia; E87.6 Hypokalemia; F17.210 Nicotine dependence, cigarettes, uncomplicated; E78.5 Hyperlipidemia, unspecified; J98.11 Atelectasis; N13.30 Unspecified hydronephrosis; R31.9 Hematuria, unspecified; F17.200 Nicotine dependence, unspecified, uncomplicated; L92.9 Granulomatous disorder of the skin and subcutaneous tissue, unspecified; E77.8 Other disorders of glycoprotein metabolism; K80.42 Calculus of bile duct with acute cholecystitis without obstruction; E83.51 Hypocalcemia; T38.3X5A Adverse effect of insulin and oral hypoglycemic [antidiabetic] drugs, initial encounter; Z68.25 Body mass index [BMI] 25.0-25.9, adult; Z79.4 Long term (current) use of insulin; Z88.0 Allergy status to penicillin; Z88.5 Allergy status to narcotic agent; Z88.8 Allergy status to other drugs, medicaments and biological substances; Z83.3 Family history of diabetes mellitus; Y92.89 Other specified places as the place of occurrence of the external cause
CPT/HCPCS: 36415; 71045; 76604; 76705; 76856; 78445; 80048; 80053; 80305; 81001; 82140; 82150; 82272; 82550; 82607; 82728; 82746; 82948; 83036; 83540; 83605; 83690; 83735; 83880; 84100; 84134; 84436; 84443; 84484; 84703; 85025; 85045; 85610; 85730; 86886; 86900; 86901; 86920; 87040; 87081; 87086; 94640; 96360; 97110; 97116; 97140; 97530; 97535; 99285; A9510; J0360; J1815; J1885; J1940; J1956; J2405; J3475; J3480; J3490; J7030; J7620; P9016; Q0092

== ENCOUNTER 2018-07-08 22:18 | Inpatient (IN) | payer OTHER ==
[~2018-07-08] VITALS: Ht 134.6 cm; Wt 44.5 kg
[~2018-07-08 22:18] MED LIST: ASCO1CAP75 PO; ASPI81CT89 PO; BENA20TA PO; CARV3.122 PO; FERR325E14 PO; FURO-572 PO; LANTUS SC; LEVO750T2 PO; SIMV20TA1 PO
[2018-07-08 22:29] VITALS: BP 126/64
--- NOTE | 2018-07-08 22:31 | NUR ---
TO [facility], A/W BED, VIA W/C ERMD NOTED
--- NOTE | 2018-07-09 00:36 | NUR ---
PT C/O LOWER QUADRANT ABD PAIN STARTING TODAY, +NVD, BLOOD IN EMESIS, BRIGHT RED. PT IS IN DISTRESS. ABD SOFT, TENDER. NO EVIDENCE OF DISTRENSION. PT DIARRHEA IS GREEN. 10/10 ACHING PAIN
[2018-07-09] MEDS ORDERED: OCTREOTIDE ACETATE 100 MCG/ML VIAL SUBQ ONE (00:50)
[2018-07-09] MEDS ORDERED: ONDANSETRON 4 MG/2 ML VIAL ONE ×2 (00:52→01:09)
[2018-07-09] MEDS ORDERED: OCTREOTIDE ACETATE 1000 MCG/5 ML VIAL ONE (01:01)
[2018-07-09] MEDS ORDERED: METOCLOPRAMIDE 10 MG/2 ML INJ VIAL ONE ×2 (01:14→01:33)
--- NOTE | 2018-07-09 01:15 | NUR ---
PT IS A DIFFICULT STICK. AFTER MULTIPLE IV ATTEMPTS, I ESTABLISHED A 22GA IV HEP LOCK TO RT HAND. PT CONTINUES TO HAVE ABD PAIN WITH 50-70 ML OF COFFEE GROUND EMESIS NOTED. PT SKIN PALE/GURDEEP/COOL. ER MD DR FRANKLIN AT BEDSIDE FOR EVAL.
--- NOTE | 2018-07-09 01:30 | NUR ---
TIME OUT CALL FOR INSERTION OF TRIPLE LUMEN CENTRAL LINE CATHETER BY ER MD CAO, RN MARCIA, RN DAYANNA, EMT SOLIS AT BEDSIDE. ST W/O ECT NOTED. VSS AT THIS TIME
[2018-07-09] MEDS ORDERED: LORazepam 2 MG/ML VIAL ONE (01:32)
[2018-07-09] MEDS ORDERED: METOCLOPRAMIDE 10 MG/2 ML INJ VIAL IVP ONE (01:35)
[2018-07-09] MEDS ORDERED: ONDANSETRON 4 MG/2 ML VIAL IVP ONE (01:35)
--- NOTE | 2018-07-09 01:35 | NUR ---
PT C/O MODERATE NAUSEA. NOTED MIN AMT CLEAR YELLOW EMESIS. HOB ELEVATED, PROVIDED WITH EMESIS BAG. WILL ADMINISTER IV ZOFRAN. ICE CHIPS PROVIDED FOR COMFORT. Addendum: 07/18/18 at 1345 by Binta Alicia RN NOTE ENTERED AT WRONG TIME. NOTE INTENDED FOR 07/09/18 @ 4822.
--- NOTE | 2018-07-09 01:45 | NUR ---
LAB SENT TO LAB Addendum: 07/09/18 at 0501 by MEDRJJ BLOOD SENT TO LAB.
[2018-07-09 02:00] LABS: HEMATOCRIT 28.1 % (36-48); MEAN CORPUSCULAR HEMOGLOBIN 29 pg (27-31); MEAN CORPUSCULAR HGB CONC 32 g/dL (33-37); MEAN CORPUSCULAR VOLUME 88.8 fL (80-94); PLATELET COUNT (AUTO) 316 K/uL (140-450); RED BLOOD CELL COUNT(AUTO) 3.16 MIL/uL (4.20-5.40); RED CELL DISTRIBUTION WIDTH 13.7 % (11.6-13.7); WHITE BLOOD COUNT (AUTO) 19.5 K/uL (4.8-10.8)
--- NOTE | 2018-07-09 02:00 | NUR ---
# 16 FR Santana catheter with 10 ml utilizing sterile technique. Immediate return of 50 ml CLOUDY urine noted. Bedside drainage bag placed below level of bladder. Urine sample collected and sent to lab. Pt tolerated procedure WELL.
--- NOTE | 2018-07-09 02:11 | NUR ---
EKG PERFORMED AT BEDSIDE WHILE COVERED IN GOWN AND BLANKET
[2018-07-09 02:24] LABS: LYMPHOCYTES % (MANUAL) 7 % (20-46); MONOCYTES % (MANUAL) 1 % (5-12)
--- NOTE | 2018-07-09 02:30 | NUR ---
Patient appears to be resting comfortably in bed. Vital Signs within normal limits. Respirations even and unlabored.
[2018-07-09 02:39] LABS: ALBUMIN 1.7 g/dL (3.4-5.0); ANION GAP 18.6 (8-16); CARBON DIOXIDE 18.9 mmol/L (21-32); CREATININE 2.3 mg/dL (0.6-1.3); POTASSIUM 3.5 mmol/L (3.5-5.1); TOTAL BILIRUBIN 0.2 mg/dL (0.0-1.0)
--- NOTE | 2018-07-09 03:00 | NUR ---
PT WENT HOME. PT RESTING, VSS. IV NS BOULS INFUSING WELL WITH NO S/S OF INFILTRATION AT THIS TIME.
[2018-07-09 03:28] LABS: APPEARANCE,URINE CLOUDY (CLEAR); BILIRUBIN,URINE NEGATIVE (NEGATIVE); BLOOD, URINE 2+ (NEGATIVE); COLOR,URINE YELLOW (YELLOW); LEUKOCYTE ESTERASE ,URINE 1+ (NEGATIVE); NITRITE, URINE NEGATIVE (NEGATIVE); UGLUCOSE TRACE (NEGATIVE)
[2018-07-09 03:38] LABS: RBC,URINE 3-10 (FEW) /HPF (0-5); WBC,URINE TOO MANY TO COUNT /HPF (0-5)
--- NOTE | 2018-07-09 04:00 | NUR ---
Note danie in EDM - 07/09/18 at 0456 by MEDZANDERV # 16 FR Santana catheter with 10 ml utilizing sterile technique. Immediate return of 50 ml CLOUDY urine noted. Bedside drainage bag placed below level of bladder. Urine sample collected and sent to lab. Pt tolerated procedure WELL.
[2018-07-09] MEDS ORDERED: NACL 0.9% 2,000 ML IV ONE (04:15)
[2018-07-09] MEDS ORDERED: metroNIDAZOLE 500 MG/NS PREMIX 100 ML IV ONE (04:25)
[2018-07-09] MEDS ORDERED: PANTOPRAZOLE 40 MG INJ VIAL ONE (04:29)
--- NOTE | 2018-07-09 04:30 | NUR ---
PATIENT RESTING AT THIS TIME. NO SIGNS OF DISTRESS.
[2018-07-09] MEDS ORDERED: NACL 0.9% 1,000 ML IV ONE (04:35)
[2018-07-09] MEDS: PANTOPRAZOLE 80 MG in NACL 0.9% 100 ML IV SCH ×2 (04:35→14:59)
[2018-07-09] MEDS ORDERED: ONDANSETRON 4 MG/2 ML VIAL IVP PRN ×2 (05:40→16:05)
--- NOTE | 2018-07-09 05:57 | NUR ---
Patient will be admitted to care of DR. WYNN. Admited to TELE. Will go to room 124B. Belongings list completed. Report to RICARDO SWAN.
--- NOTE | 2018-07-09 06:00 | NUR ---
ARRIVED PT TO UNIT FROM ER. REPORT GIVEN BY TAY,ER NURSE. PT IS DROWSY BUT AWAKE WHEN NAME CALLED. TELE PT WITH NO ACUTE DISTRESS NOTED. HAS CENTRAL LINE ON THE RT SUBCLAVIAN DOUBLE LUMEN WITH PROTONIX IN INFUSING. HAS REGULAR IV ACCESS ON RT HAND #[id number]. GARNER CATH TO GRAVITY. WILL ENDORSED RO AM NURSE.
--- NOTE | 2018-07-09 07:10 | NUR ---
RECEIVED REPORT FROM [employer] MAKE UP OPERATOR NURSE. PT LETHARGIC, RESPONSIVE TO TOUCH, ABLE TO NOD HEAD YES/NO. NO SIGNS OF DISTRESS. DR ROPER AT BEDSIDE TO ASSESS PT. CALL LIGHT WITHIN REACH. WILL CONTINUE TO MONITOR.
[2018-07-09 08:00] VITALS: BP 155/89
[2018-07-09] MEDS: DOCUSATE SODIUM 100 MG GELCAP PO SCH ×2 (09:00→22:29)
[2018-07-09 10:27] LABS: CHOL/HDL RATIO 5.7 (1-4.5); FREE T4 (FREE THYROXINE) 1.2 ng/dL (0.76-1.46); MAGNESIUM 1.9 mg/dL (1.8-2.4); PHOSPHORUS 6.1 mg/dL (2.5-4.9); THYROID STIMULATING HORMONE 0.59 uIU/mL (0.34-3.74)
--- NOTE | 2018-07-09 10:40 | NUR ---
DR. ROPER NOTIFIED OF TROPONIN I RESULT OF 0.082.
--- NOTE | 2018-07-09 11:40 | NUR ---
PT DROWSY BUT RESPONDS VERBALLY TO QUESTIONS. DENIES ANY DISCOMFORT. NO SIGNS OF DISTRESS. WILL CONTINUE TO MONIOTOR
[2018-07-09 12:00] VITALS: BP 165/71
--- NOTE | 2018-07-09 12:20 | NUR ---
PT STILL C/O NAUSEA WITH DRY HEAVING, NO FURTHER VOMITING. DR. ROPER NOTIFIED. NO RESPIRATORY DISTRESS. HOB KEPT ELEVATED. WILL CONTINUE TO MONITOR.
--- NOTE | 2018-07-09 13:35 | NUR ---
PT C/O MODERATE NAUSEA. NOTED MIN AMT CLEAR YELLOW EMESIS. HOB ELEVATED, PROVIDED WITH EMESIS BAG. WILL ADMINISTER IV ZOFRAN. ICE CHIPS PROVIDED FOR COMFORT.
--- NOTE | 2018-07-09 14:30 | NUR ---
PT SUPINE IN BED, ALERT & AWAKE, VERBALIZED FEELING A LITTLE BETTER AFTER ADMINISTRATION OF PHENERGAN. WILL CONTINUE TO MONITOR.
[2018-07-09] MEDS ORDERED: PROMETHAZINE 25 MG/ML VIAL IM PRN (14:35)
[2018-07-09] MEDS: PROMETHAZINE 25 MG/ML VIAL IM PRN ×2 (14:54→22:40)
[2018-07-09] MEDS: DEXT 5% / NACL 0.45% 1,000 ML IV SCH (16:01)
[2018-07-09] MEDS: INSULIN LISPRO SLIDING SCALE 100 UNITS/ML VIAL SUBQ PRN ×2 (16:08→22:37)
[2018-07-09] MEDS: BLOOD GLUCOSE MONITORING 1 DEV DEV FS SCH ×2 (16:35→22:29)
[2018-07-09] MEDS: INSULIN LANTUS 100 UNITS/ML 10 ML VIAL SUBQ SCH (17:00)
[2018-07-09] MEDS: LORazepam 2 MG/ML VIAL IM/IVP PRN (17:31)
[2018-07-09 18:00] VITALS: BP 180/84
--- NOTE | 2018-07-09 18:20 | NUR ---
DR ROPER NOTIFIED OF ELEVATED BP. PT IN BED, ASLEEP BUT EASILY AROUSABLE BY VOICE, DENIES ANY PAIN OR DISCOMFORT AT THIS TIME. NO SIGNS OF DISTRESS. WILL CONTINUE TO MONITOR.
[2018-07-09] MEDS ORDERED: BENAZEPRIL 20 MG TAB PO SCH (19:00)
--- NOTE | 2018-07-09 19:15 | NUR ---
REPORT GIVEN TO [employer] CONSULTANT NURSE FOR CONTINUITY OF CARE. PT IN BED, RESPONSIVE TO VOICE. NO SIGNS OF DISTRESS AT THIS TIME.
--- NOTE | 2018-07-09 19:16 | NUR ---
RECEIVED REPORT FROM DAYSHIFT NURSE AT BEDSIDE FOR CONTINUITY OF CARE. PT IS AAOX4. ICELANDIC SPEAKING. IV NOTED RIGHT HAND 20G AND ALSO HAS CENTRAL LINE SUBCLAVIAN R-PROTONIZ DRIP 10ML/HR AND D5 1/2 NS. PT HAS GARNER IN PLACE AND ORDER TO D/C GARNER.PT ON C-DIFF BLEACH PER ORDER OF NEEDED STOOL SAMPLE BED LOWERED CALL LIGHT WITHIN REACH. WILL CONTINUE TO MONITOR.
[2018-07-09 20:00] VITALS: BP 168/67
[2018-07-09] MEDS ORDERED: CARVEDILOL 3.125 MG TAB PO SCH (21:00)
--- NOTE | 2018-07-09 21:11 | NUR ---
ADMIN MICHAEL 1HR AGO FOR N/V AND PT IS STILL DRY HEAVING. WILL TALK TO MD FOR DIFFERENT MED.
[2018-07-09] MEDS: PANTOPRAZOLE 40 MG INJ VIAL IVP SCH (22:22)
[2018-07-09] MEDS: metroNIDAZOLE 500 MG/NS PREMIX 100 ML IV SCH (22:23)
[2018-07-09] MEDS: CARVEDILOL 3.125 MG TAB PO SCH (22:23)
[2018-07-09] MEDS: SIMVASTATIN 20 MG TAB PO SCH (22:24)
--- NOTE | 2018-07-09 23:40 | NUR ---
ADMIN PHENERGAN 1HR AGO FOR NAUSEA. NOT EFFECTIVE PT IS STILL DRY HEAVING. WILL CALL MD FOR NEW ORDERS.
[2018-07-10] VITALS: BP 168/83
[2018-07-10] MEDS ORDERED: KETOROLAC 15 MG/ML VIAL IM PRN (00:10)
[2018-07-10] MEDS: METOCLOPRAMIDE 10 MG/2 ML INJ VIAL IVP PRN ×2 (00:33→06:43)
--- NOTE | 2018-07-10 00:40 | NUR ---
BP AT 0033 WAS HIGH 168/67. CALLED MD SCHULTZ ABOUT ELEVATED BP. HE STATED HE WILL COME AND TAKE A LOOK AT THE PT. WILL CONTINUE TO MONITOR.
--- NOTE | 2018-07-10 01:33 | NUR ---
ADMIN REGLAN FOR NAUSEA. PT SLEEPING .NAUSEA MED EFFECTIVE WILL CONTINUE TO MONITOR.
--- NOTE | 2018-07-10 01:34 | NUR ---
ADMIN PAIN MED 1HR AGO. PAIN MED EFFECTIVE PT SLEEPING. NO SOB NO S/S OF DISTRESS ON RA. WILL CONTINUE TO MONITOR.
[2018-07-10 04:00] VITALS: BP 125/59
[2018-07-10] MEDS: metroNIDAZOLE 500 MG/NS PREMIX 100 ML IV SCH ×3 (05:15→21:24)
[2018-07-10] MEDS: BLOOD GLUCOSE MONITORING 1 DEV DEV FS SCH ×4 (05:17→21:33)
[2018-07-10] MEDS: INSULIN LISPRO SLIDING SCALE 100 UNITS/ML VIAL SUBQ PRN ×3 (05:25→17:13)
--- NOTE | 2018-07-10 07:36 | NUR ---
ENDORSED REPORT TO DAYSHIFT NURSE AT BEDSIDE FOR CONTINUITY OF CARE.
[2018-07-10 08:00] VITALS: BP 193/84
[2018-07-10] MEDS: PANTOPRAZOLE 40 MG INJ VIAL IVP SCH ×2 (08:41→21:31)
[2018-07-10] MEDS: CARVEDILOL 3.125 MG TAB PO SCH ×2 (08:45→21:25)
[2018-07-10] MEDS: BENAZEPRIL 20 MG TAB PO SCH (08:54)
[2018-07-10] MEDS ORDERED: BENAZEPRIL 20 MG TAB PO SCH (09:00)
[2018-07-10] MEDS: DOCUSATE SODIUM 100 MG GELCAP PO SCH ×2 (09:00→21:25)
[2018-07-10] MEDS ORDERED: PROMETHAZINE 25 MG/ML VIAL IVP PRN (09:00)
[2018-07-10] MEDS ORDERED: FUROSEMIDE 20 MG/2 ML VIAL IVP SCH ×2 (09:00)
[2018-07-10] MEDS ORDERED: HYDROmorphone 2 MG TAB PO ONE (09:05)
[2018-07-10] MEDS: INSULIN LANTUS 100 UNITS/ML 10 ML VIAL SUBQ SCH ×2 (09:09→17:00)
--- NOTE | 2018-07-10 09:10 | NUR ---
PATIENT IN BED SHOWING SIGNS OF NAUSEA. ADMINISTERED MEDICATIONS PER MAR, BLOOD PRESSURE 193/84, BLOOD PRESSURE MEDICATIONS ADMINISTERED PO WITH WATER, PATIENT VOMITED WATER AND BP MEDICATIONS. ADMINISTERED LASIX IV PER ORDER, PATIENT TAKEN TO HIDA SCAN.
--- NOTE | 2018-07-10 09:12 | NUR ---
WILL HOLD THE COLACE AT THIS TIME. PT HAS C. DIFF TEST ORDERED.
--- NOTE | 2018-07-10 09:18 | NUR ---
PATIENT HAS BEEN SCREENED AND CATEGORIZED HIGH NUTRITION RISK. PATIENT WILL BE SEEN WITHIN 1-2 DAYS OF ADMISSION. 07/10/[address]
[2018-07-10] MEDS ORDERED: diphenhydrAMINE 50 MG/ML VIAL IVP PRN (09:25)
[2018-07-10] MEDS ORDERED: HYDROmorphone 1 MG/ML AMP IVP SCH (09:30)
[2018-07-10] MEDS: PROMETHAZINE 25 MG/ML VIAL IM/IVP PRN ×2 (09:52→23:00)
[2018-07-10] MEDS: DEXT 5% / NACL 0.45% 1,000 ML IV SCH (10:29)
--- NOTE | 2018-07-10 11:50 | NUR ---
PATIENT RETURNED FROM HIDA SCAN, RECEIVED DILAUDID DURING SCAN TO DECREASE PAIN AND EXAM, PATIENT SHOWS NO SIGNS OR SYMPTOMS OF RESPIRATORY DISTRESS, BLOOD PRESSURE STILL ELEVATED AT 192/73, WILL SPEAK TO MD.
[2018-07-10 12:00] VITALS: BP 192/73
[2018-07-10 12:17] LABS: HEMATOCRIT 26.7 % (36-48); HEMOGLOBIN 8.8 g/dL (12.0-16.0); MEAN CORPUSCULAR HEMOGLOBIN 29 pg (27-31); MEAN CORPUSCULAR HGB CONC 33 g/dL (33-37); MEAN CORPUSCULAR VOLUME 88.9 fL (80-94); PLATELET COUNT (AUTO) 297 K/uL (140-450); RED BLOOD CELL COUNT(AUTO) 3.01 MIL/uL (4.20-5.40); RED CELL DISTRIBUTION WIDTH 13.9 % (11.6-13.7); WHITE BLOOD COUNT (AUTO) 19.7 K/uL (4.8-10.8)
--- NOTE | 2018-07-10 13:01 | NUR ---
CALLED CHUCKY FROM [facility]. SHE SAID THIS PATIENT IS REGAL, AND FAX REVIEW TO THEM NOT TO [facility]. FAXED INITIAL REVIEW TO [phone] PHONE CHUCKY [phone]. SHE ALSO SAID THAT THIS PATIENT IS UNDER A GI PHYSICIAN OUT PATIENT, DR. DALLAS PRADO. INFORMED DR. ROPER.
[2018-07-10 13:02] LABS: LYMPHOCYTES % (MANUAL) 10 % (20-46); MONOCYTES % (MANUAL) 1 % (5-12)
[2018-07-10 13:12] LABS: ANION GAP 14.7 (8-16); CARBON DIOXIDE 22.1 mmol/L (21-32); CREATININE 1.7 mg/dL (0.6-1.3); POTASSIUM 2.8 mmol/L (3.5-5.1)
[2018-07-10 13:13] LABS: MAGNESIUM 1.5 mg/dL (1.8-2.4); PHOSPHORUS 3.4 mg/dL (2.5-4.9)
[2018-07-10] MEDS ORDERED: MAG SULF 2000 MG/WATER PREMIX 50 ML IV ONE (13:15)
--- NOTE | 2018-07-10 13:19 | NUR ---
SANDOSTATIN RECEIVED IN ER. NO LONGER RECEIVING SANDOSTATIN.
[2018-07-10] MEDS ORDERED: ENALAPRILAT 2.5 MG/2 ML VIAL IVP SCH (14:00)
[2018-07-10] MEDS ORDERED: METOPROLOL 5 MG/5 ML VIAL IV SCH (14:10)
--- NOTE | 2018-07-10 15:57 | NUR ---
07/10/18 RD INITIAL ASSESSMENT COMPLETED PLEASE REFER TO NUTRITION ASSESSMENT UNDER CARE ACTIVITY FOR ESTIMATED NUTRITIONAL NEEDS. 1. CONTINUE NPO MEDICALLY APPROPRIATE 2. IF/WHEN MEDICALLY STABLE CONSIDER CLEAR LIQUID DIET WITH ENSURE CLEAR TID TOLERATED. 3. RD TO FOLLOW-UP 2-3 DAYS, HIGH RISK LUIS LOUIE, CAMELIA
[2018-07-10 16:00] VITALS: BP 140/72
[2018-07-10] MEDS ORDERED: KCL 20 MEQ/WATER INJ PREMIX 200 ML IV SCH (16:00)
[2018-07-10] MEDS: MAGNESIUM SULFATE 1GM in DEXTROSE 5% 100 ML PREMIX IV SCH ×2 (16:06→17:16)
--- NOTE | 2018-07-10 16:30 | NUR ---
PT IS RESTING IN BED AT THIS TIME, NO S/S OF DISTRESS NOTED AT THIS TIME, PT STILL IS NOT ABLE TO TOLERATE FOOD AND COMPLAINS OF NAUSEA WHEN TRYING TO EAT, NO COMPLAINS OF PAIN, FAMILY IS AT BEDSIDE, CALL LIGHT IS WITHIN REACH.
--- NOTE | 2018-07-10 17:00 | NUR ---
SHAHAB SANTANA PT IS NOT EATING AND HAS POOR APPETITE.
[2018-07-10] MEDS: METOCLOPRAMIDE 10 MG/2 ML INJ VIAL IVP SCH (17:11)
[2018-07-10] MEDS: POTASSIUM CHL 20 MEQ/ 1/2 NS 1,000 ML IV SCH (17:41)
[2018-07-10] MEDS: KCL 20 MEQ/WATER INJ PREMIX 100 ML IV SCH ×2 (18:19→22:59)
--- NOTE | 2018-07-10 19:44 | NUR ---
ENDORSED PT TO REHABILITATION TECHNICIAN NURSE FOR CONTINUITY OF CARE. PT STABLE AT THIS TIME.
[2018-07-10 20:00] VITALS: BP 132/74
[2018-07-10] MEDS: SIMVASTATIN 20 MG TAB PO SCH (21:33)
[2018-07-10] MEDS ORDERED: KCL 20 MEQ/WATER INJ PREMIX 100 ML IV ONE (23:01)
[2018-07-11] VITALS: BP 163/83
[2018-07-11] MEDS: LORazepam 2 MG/ML VIAL IM/IVP PRN (00:49)
[2018-07-11] MEDS: POTASSIUM CHL 20 MEQ/ 1/2 NS 1,000 ML IV SCH (02:32)
[2018-07-11] MEDS: metroNIDAZOLE 500 MG/NS PREMIX 100 ML IV SCH ×3 (04:37→20:55)
[2018-07-11 04:51] VITALS: BP 140/57
[2018-07-11] MEDS: BLOOD GLUCOSE MONITORING 1 DEV DEV FS SCH ×4 (06:06→20:24)
[2018-07-11 06:08] LABS: BASOPHILS # (AUTO) 0.1 K/uL (0.00-0.22); BASOPHILS % (AUTO) 0.3 % (0.0-2.0); EOSINOPHILS # (AUTO) 0.1 K/uL (0-0.4); EOSINOPHILS % (AUTO) 0.4 % (0.0-4.0); HEMATOCRIT 25.7 % (36-48); HEMOGLOBIN 8.3 g/dL (12.0-16.0); LYMPHOCYTES % (AUTO) 17.3 % (20.5-51.1); MEAN CORPUSCULAR HEMOGLOBIN 29 pg (27-31); MEAN CORPUSCULAR HGB CONC 32 g/dL (33-37); MEAN CORPUSCULAR VOLUME 88.7 fL (80-94); MONOCYTES # (AUTO) 0.7 K/uL (0.8-1.0); MONOCYTES % (AUTO) 4.2 % (1.7-9.3); NEUTROPHILS # (AUTO) 13.6 K/uL (1.8-7.7); NEUTROPHILS % (AUTO) 77.8 % (42.2-75.2); PLATELET COUNT (AUTO) 292 K/uL (140-450); RED CELL DISTRIBUTION WIDTH 13.7 % (11.6-13.7); WHITE BLOOD COUNT (AUTO) 17.5 K/uL (4.8-10.8)
[2018-07-11 06:29] LABS: ANION GAP 12.5 (8-16); CARBON DIOXIDE 21.9 mmol/L (21-32); CREATININE 1.5 mg/dL (0.6-1.3); POTASSIUM 3.4 mmol/L (3.5-5.1)
--- NOTE | 2018-07-11 07:25 | NUR ---
RECEIVED REPORT FROM PRODUCTION CONTROL SCHEDULER. PT ALERT, VERBAL, LETHARGIC. SKIN DRY AND WARM TO TOUCH. LUNGS CLEAR. S1S2 HEARD. ACTIVE BOWEL SOUND. RIGHT IJ TRIPLE LUMEN 1/2 NS WITH KCL RUNNING AT 100 ML/HR. KEPT HOB ELEVATED BED IN LOW POSITION LOCKED. CALL LIGHT WITHIN REACH. WILL CONTINUE TO MONITOR.
[2018-07-11 08:00] VITALS: BP 204/113
[2018-07-11] MEDS ORDERED: METOPROLOL 5 MG/5 ML VIAL IV PRN ×2 (08:05→11:50)
[2018-07-11] MEDS: METOCLOPRAMIDE 10 MG/2 ML INJ VIAL IVP SCH ×3 (08:20→16:46)
[2018-07-11] MEDS: DOCUSATE SODIUM 100 MG GELCAP PO SCH ×2 (08:20→20:40)
[2018-07-11] MEDS: ENALAPRILAT 2.5 MG/2 ML VIAL IVP PRN (08:20)
[2018-07-11] MEDS: PANTOPRAZOLE 40 MG INJ VIAL IVP SCH ×2 (08:20→20:30)
[2018-07-11] MEDS: CARVEDILOL 3.125 MG TAB PO SCH ×2 (08:21→20:29)
[2018-07-11] MEDS: BENAZEPRIL 20 MG TAB PO SCH (08:21)
--- NOTE | 2018-07-11 08:21 | NUR ---
PT ON NPO STATUS FOR EGD PROCEDURE. PO MEDS NOT ADMINISTERED. DR. GLOVER AND RESIDENT AWARE.
[2018-07-11] MEDS: DEXT 5% / NACL 0.45% 1,000 ML IV SCH ×2 (08:30→12:34)
[2018-07-11] MEDS: INSULIN LANTUS 100 UNITS/ML 10 ML VIAL SUBQ SCH ×2 (08:36→16:47)
--- NOTE | 2018-07-11 09:20 | NUR ---
BP DECREASED TO 176/85. PAGED DR. ROPER. WAITING FOR CALL BACK. Addendum: 07/11/18 at 1005 by Arabella Sin RN DR. ROPER MADE AWARE.
--- NOTE | 2018-07-11 11:53 | NUR ---
PT RESTING IN BED. NO CHANGE IN LOC. BP READING WAS 174/77. DR. ROPER MADE AWARE. WILL FOLLOW UP ORDER.
[2018-07-11 12:00] VITALS: BP 174/77
--- NOTE | 2018-07-11 12:52 | NUR ---
FAXED CONCURRENT REVIEW TO [facility] [phone] PHONE CHUCKY [phone]
--- NOTE | 2018-07-11 13:44 | NUR ---
PT AND INSTRUCTED TO COLLECT STOOL SAMPLE FOR C. DIFF TEST. PT AND PATIENT DEMOCRAT VERBALIZED UNDERSTANDING. CONTAINER PROVIDED TO PT.
[2018-07-11 16:00] VITALS: BP 176/74
--- NOTE | 2018-07-11 16:02 | NUR ---
I EARLIER CALLED [facility] FOR LIST OF SNF'S. I THEN LATER CALLED CHUCKY FROM [facility] AND SHE SAID SHE DIDN'T HAVE THIS PATIENT TODAY, IT WAS JOSE F [phone]. CHUCKY SAID THAT IF A SNF IS NEEDED, CALL THE CM FOR [facility] AND THEY WILL GET THE SNF.
--- NOTE | 2018-07-11 16:09 | NUR ---
PT SEEN BY DR. MATUTE. PLANNED FOR EGD TOMORROW. RECOMMENDED FOR TPN IF POSSIBLE. WILL FOLLOW UP ON ORDER. Addendum: 07/11/18 at 1613 by Arabella Sin RN OR FULL LIQUID DIET.
--- NOTE | 2018-07-11 16:34 | NUR ---
BP CHECKED WAS 176/74. DR. DOMENICA RAMOS.
[2018-07-11] MEDS: INSULIN LISPRO SLIDING SCALE 100 UNITS/ML VIAL SUBQ PRN ×2 (16:48→20:56)
[2018-07-11] MEDS ORDERED: BENAZEPRIL 10 MG TAB PO SCH (17:00)
[2018-07-11] MEDS: PHARMACY COMMENTS MC SCH (18:00)
[2018-07-11] MEDS: VANCOMYCIN 500 MG VIAL PO SCH ×2 (18:02→23:19)
[2018-07-11] MEDS ORDERED: ACETAMINOPHEN 650 MG/20.3 ML UDC PO PRN (18:20)
--- NOTE | 2018-07-11 18:29 | NUR ---
STOOL SAMPLE FOR C. DIFF TAKEN TO THE LAB.
--- NOTE | 2018-07-11 18:31 | NUR ---
PER PATIENT AND PT'S FAMILY PT IS NOT ALLERGIC TO TYLENOL. OK TO GIVE TYLENOL FOR PAIN MANAGEMENT PER PT AND PT'S .
--- NOTE | 2018-07-11 19:05 | NUR ---
RESTING IN BED COMFORTABLY. NO CHANGE IN LOC. WILL CONTINUE TO MONITOR.
--- NOTE | 2018-07-11 19:25 | NUR ---
ENDORSED TO SPECTROGRAPHIC ANALYST RN FOR CONTINUITY OF CARE. PT ON STABLE CONDITION.
--- NOTE | 2018-07-11 19:26 | NUR ---
REPORT RECEIVED FROM AM NURSE AT BEDSIDE. PT INSTABLE CONDITION. AAOX4. INTRODUCED SELF TO PT AND FAMILY. BOARD UPDATED. CENTRAL LINE PATENT AND INTACT TRIPLE LUMEN. SKIN WARM, DRY, AND INTACT WITH NO OPEN WOUNDS. BED LOCKED IN LOW POSITION. CALL MUSA WITHIN REACH.
[2018-07-11 20:00] VITALS: BP 147/70
--- NOTE | 2018-07-11 20:00 | NUR ---
PT HAS COMPLAINTS OF PAIN. TYL WAS GIVEN AT 1830 BUT STILL HAS BREAKTHROUGH PAIN. MD NOTIFIED. PRESCRIBED MORPHINE.
[2018-07-11] MEDS: MORPHINE SULFATE 2 MG/ML SYR IVP PRN (20:10)
--- NOTE | 2018-07-11 20:10 | NUR ---
MORPHINE GIVEN FOR 10/10 PAIN IVP. PT TOLERATED WELL.
[2018-07-11] MEDS: MEROPENEM 1,000 MG in NACL 0.9% 100 ML IV SCH (20:30)
[2018-07-11] MEDS: SIMVASTATIN 20 MG TAB PO SCH (20:30)
--- NOTE | 2018-07-11 20:30 | NUR ---
BRISEIDA GRESHAM. PROTONIX GIVEN IVP. ZOCOR AND COREG GIVEN. PT TOLERATED WELL. Addendum: 07/12/18 at 0037 by Gilbert Ayala RN COLACE HELD DUE TO PT HAVING DIARRHEA.
--- NOTE | 2018-07-11 20:55 | NUR ---
DARIN GRESHAM. PT TOLERATED WELL. BS 156. 2 UNITS OF INSULIN GIVEN.
--- NOTE | 2018-07-11 23:09 | NUR ---
VANCOCIN GIVEN PO DIRECTED BY PHARMACY. PT TOLERATED WELL.
[2018-07-12] VITALS: BP 117/63
[2018-07-12 04:00] VITALS: BP 115/73
[2018-07-12] MEDS: MEROPENEM 1,000 MG in NACL 0.9% 100 ML IV SCH ×3 (04:04→20:15)
[2018-07-12] MEDS: metroNIDAZOLE 500 MG/NS PREMIX 100 ML IV SCH ×2 (04:05→12:28)
[2018-07-12] MEDS: MORPHINE SULFATE 2 MG/ML SYR IVP PRN (04:05)
--- NOTE | 2018-07-12 04:05 | NUR ---
BRISEIDA GRESHAM. MORPHINE GIVEN FOR 06/30 PAIN. WILL HANG FLAGYL AFTER MERREM COMPLETES. WILL CONTINUE TO MONITOR.
--- NOTE | 2018-07-12 04:39 | NUR ---
PT SLEEPING COMFORTABLY IN BED. NO S/S OF DISTRESS. Addendum: 07/12/18 at 8660 by Gilbert Ayala RN INTERVENTION @0541
[2018-07-12] MEDS: DEXT 5% / NACL 0.45% 1,000 ML IV SCH (04:50)
[2018-07-12] MEDS: VANCOMYCIN 500 MG VIAL PO SCH ×4 (05:13→23:30)
--- NOTE | 2018-07-12 05:13 | NUR ---
VANCOCIN GIVEN PO. PT TOLERATED WELL. BS 94. NO INSULIN COVERAGE NEEDED.
[2018-07-12] MEDS: BLOOD GLUCOSE MONITORING 1 DEV DEV FS SCH ×4 (05:23→20:06)
[2018-07-12 06:15] LABS: BASOPHILS # (AUTO) 0.1 K/uL (0.00-0.22); BASOPHILS % (AUTO) 0.5 % (0.0-2.0); EOSINOPHILS # (AUTO) 0.1 K/uL (0-0.4); EOSINOPHILS % (AUTO) 0.8 % (0.0-4.0); HEMATOCRIT 27.7 % (36-48); HEMOGLOBIN 9.2 g/dL (12.0-16.0); LYMPHOCYTES # (AUTO) 2.8 K/uL (2.5-16.5); LYMPHOCYTES % (AUTO) 18.8 % (20.5-51.1); MEAN CORPUSCULAR HEMOGLOBIN 29 pg (27-31); MEAN CORPUSCULAR HGB CONC 33 g/dL (33-37); MEAN CORPUSCULAR VOLUME 87.7 fL (80-94); MONOCYTES % (AUTO) 7.1 % (1.7-9.3); NEUTROPHILS # (AUTO) 10.8 K/uL (1.8-7.7); NEUTROPHILS % (AUTO) 72.8 % (42.2-75.2); PLATELET COUNT (AUTO) 335 K/uL (140-450); RED BLOOD CELL COUNT(AUTO) 3.15 MIL/uL (4.20-5.40); RED CELL DISTRIBUTION WIDTH 13.3 % (11.6-13.7); WHITE BLOOD COUNT (AUTO) 14.9 K/uL (4.8-10.8)
[2018-07-12 06:32] LABS: ANION GAP 12.3 (8-16); CARBON DIOXIDE 22.4 mmol/L (21-32); CREATININE 1.5 mg/dL (0.6-1.3)
[2018-07-12 06:37] LABS: MAGNESIUM 1.4 mg/dL (1.8-2.4); PHOSPHORUS 3.1 mg/dL (2.5-4.9)
--- NOTE | 2018-07-12 07:10 | NUR ---
REPORT GIVEN TO AM NURSE AT BEDSIDE. PT IN STABLE CONDITION.
[2018-07-12 07:54] LABS: POTASSIUM 2.7 mmol/L (3.5-5.1)
[2018-07-12 08:00] VITALS: BP 162/85
[2018-07-12] MEDS ORDERED: KCL 20 MEQ/WATER INJ PREMIX 200 ML IV ONE (08:25)
[2018-07-12] MEDS ORDERED: MAG SULF 2000 MG/WATER PREMIX 50 ML IV ONE (08:30)
[2018-07-12] MEDS: ONDANSETRON 4 MG/2 ML VIAL IVP SCH ×3 (08:52→17:28)
[2018-07-12] MEDS: PANTOPRAZOLE 40 MG INJ VIAL IVP SCH (08:55)
[2018-07-12] MEDS: DOCUSATE SODIUM 100 MG GELCAP PO SCH ×2 (09:00→20:07)
[2018-07-12] MEDS: INSULIN LANTUS 100 UNITS/ML 10 ML VIAL SUBQ SCH ×2 (09:00→17:00)
[2018-07-12] MEDS: CARVEDILOL 3.125 MG TAB PO SCH ×2 (09:00→20:16)
[2018-07-12] MEDS: BENAZEPRIL 20 MG TAB PO SCH (09:00)
--- NOTE | 2018-07-12 09:08 | NUR ---
CM NOTE [phone] PHONE CHUCKY [phone] [facility]# [phone]
[2018-07-12] MEDS ORDERED: fentaNYL 0.05 MG/ML VIAL ONE (09:10)
[2018-07-12] MEDS ORDERED: MIDAZOLAM 2 MG/2 ML VIAL ONE ×2 (09:11)
[2018-07-12] MEDS ORDERED: diphenhydrAMINE 50 MG/ML VIAL ONE (09:11)
--- NOTE | 2018-07-12 10:40 | NUR ---
PT NOTE 1030 CHART REVIEWED AND CLEARED FOR PT TX BY RN. Pt REFUSED TO PARTICIPATE WITH PT TODAY DUE TO C/O DIZZINESS AND NAUSEA. Pt STATES THAT SHE WAS GIVEN NAUSEA MEDS EARLIER BUT NOT HELPING, RN NOTIFIED; INSTRUCTED Pt TO PERFORM HEP IN SUPINE TO PREVENT COMPLICATIONS OF IMMOBILITY; WILL FOLLOW UP W/Pt TOMORROW. RN AWARE.
--- NOTE | 2018-07-12 11:10 | NUR ---
PATIENT LEFT THE UNIT FOR EGD
[2018-07-12] MEDS ORDERED: MIDAZOLAM 2 MG/2 ML VIAL IVP ONE (11:45)
[2018-07-12] MEDS ORDERED: fentaNYL 0.05 MG/ML VIAL IVP ONE (11:45)
--- NOTE | 2018-07-12 11:45 | NUR ---
PATIENT BACK FROM EGD. PATIENT ASLEEP BUT AROUSABLE. NO S/S OF DISTRESS NOTED
[2018-07-12 12:00] VITALS: BP 91/42
--- NOTE | 2018-07-12 12:02 | NUR ---
CM NOTE PER [facility]LER PH# [phone], IF PATIENT WILL NEED SNF TO SEND TO ONE OF THEIR CONTRACTED FACILITIES [facility], [facility], [facility], [facility], [facility], OR [facility].
[2018-07-12] MEDS: PROMETHAZINE 25 MG/ML VIAL IM/IVP PRN ×2 (13:55→20:15)
--- NOTE | 2018-07-12 13:56 | NUR ---
PATIENT LEFT THE UNIT FOR CT OF THE HEAD
--- NOTE | 2018-07-12 14:00 | NUR ---
PATIENT STARTED ON FULL LIQUID DIET. PATIENT VOMITED AND REPORTS NAUSEA. PATIENT WAS MEDICATED. MADE DR MATUTE AWARE
--- NOTE | 2018-07-12 14:15 | NUR ---
07/12/18 RD FOLLOW UP COMPLETED PLEASE REFER TO NUTRITION ASSESSMENT UNDER CARE ACTIVITY FOR ESTIMATED NUTRITIONAL NEEDS. 1. CONTINUE PT ON FULL LIQUID DIET TOLERATED 2. RECOMMEND ENSURE CLEAR TID IF PO INTAKE <50% 3. RD TO FOLLOW-UP 2-3 DAYS, HIGH RISK LUIS LOUIE, RD
[2018-07-12 16:21] VITALS: BP 145/76
--- NOTE | 2018-07-12 17:35 | NUR ---
SCHEDULES LANTUS NOT ADMINISTERED. PATIENT HAS NOT BEEN EATING
--- NOTE | 2018-07-12 19:21 | NUR ---
PATIENT REPORT GIVEN AT BEDSIDE. PATIENT ENDORSED IN STABLE CONDITION
--- NOTE | 2018-07-12 19:22 | NUR ---
REPORT RECEIVED FROM AM NURSE AT BEDSIDE. PT IN STABLE CONDITION. AAOX3. INTRODUCED SELF TO PT AND BOARD UPDATED. CENTRAL LINE PATENT AND INTACT WITH TRIPLE LUMEN. SKIN WARM, DRY, AND INTACT WITH NO OPEN WOUNDS. BED LOCKED IN LOW POSITION. CALL MUSA WITHIN REACH.
[2018-07-12 20:00] VITALS: BP 141/66
--- NOTE | 2018-07-12 20:15 | NUR ---
MERREM HUNG. COREG AND ZOCOR GIVEN. PT STATES N/V. PHENERGAN 12.5MG GIVEN. PT TOLERATED WELL. BS 124. NO INSULIN COVERAGE NEEDED. Addendum: 07/12/18 at 2043 by Gilbert Ayala RN DOCUSATE NOT GIVEN. DUE TO BOUTS OF DIARRHEA DURING DAY SHIFT.
[2018-07-12] MEDS: SIMVASTATIN 20 MG TAB PO SCH (20:16)
--- NOTE | 2018-07-12 20:45 | NUR ---
FAX SENT OUT TO [facility] FOR A COPY OF LAST YEARS COLONOSCOPY FOR THIS PT. AWAITING RESULTS.
[2018-07-12] MEDS: ZOLPIDEM 5 MG TAB PO PRN (21:43)
--- NOTE | 2018-07-12 21:43 | NUR ---
PT REQUESTED SLEEP MEDICATION. MD ORDERED AMBIEN 5MG. PT TOLERATED WELL.
--- NOTE | 2018-07-12 23:30 | NUR ---
ORAL VANCO GIVEN. PT TOLERATED WELL.
[2018-07-13] VITALS: BP 157/79
[2018-07-13] MEDS: DEXT 5% / NACL 0.45% 1,000 ML IV SCH ×4 (01:18→21:00)
--- NOTE | 2018-07-13 03:00 | NUR ---
PT SLEEPING COMFORTABLY IN BED BUT STILL FEELS NAUSEOUS AND WAKES UP EVERY SO OFTEN. NO S/S OF DISTRESS NOTED. WILL CONTINUE TO MONITOR.
[2018-07-13 04:00] VITALS: BP 98/55
[2018-07-13] MEDS: MEROPENEM 1,000 MG in NACL 0.9% 100 ML IV SCH ×3 (05:02→20:37)
[2018-07-13] MEDS: VANCOMYCIN 500 MG VIAL PO SCH ×3 (05:02→18:16)
[2018-07-13] MEDS: BLOOD GLUCOSE MONITORING 1 DEV DEV FS SCH ×4 (05:04→21:56)
--- NOTE | 2018-07-13 05:05 | NUR ---
BRISEIDA LAINEZ GIVEN PO. PT TOLERATED WELL. BS 143. NO INSULIN COVERAGE NEEDED.
[2018-07-13 06:05] LABS: BASOPHILS # (AUTO) 0.1 K/uL (0.00-0.22); BASOPHILS % (AUTO) 1.1 % (0.0-2.0); EOSINOPHILS # (AUTO) 0.1 K/uL (0-0.4); EOSINOPHILS % (AUTO) 0.9 % (0.0-4.0); HEMATOCRIT 28.6 % (36-48); HEMOGLOBIN 9.4 g/dL (12.0-16.0); LYMPHOCYTES % (AUTO) 25.3 % (20.5-51.1); MEAN CORPUSCULAR HEMOGLOBIN 29 pg (27-31); MEAN CORPUSCULAR HGB CONC 33 g/dL (33-37); MEAN CORPUSCULAR VOLUME 88.7 fL (80-94); MONOCYTES # (AUTO) 0.7 K/uL (0.8-1.0); MONOCYTES % (AUTO) 6.1 % (1.7-9.3); NEUTROPHILS % (AUTO) 66.6 % (42.2-75.2); PLATELET COUNT (AUTO) 330 K/uL (140-450); RED BLOOD CELL COUNT(AUTO) 3.23 MIL/uL (4.20-5.40); RED CELL DISTRIBUTION WIDTH 13.4 % (11.6-13.7)
[2018-07-13 06:14] LABS: ANION GAP 10.8 (8-16); CARBON DIOXIDE 23.8 mmol/L (21-32); CREATININE 1.5 mg/dL (0.6-1.3); POTASSIUM 3.6 mmol/L (3.5-5.1)
[2018-07-13 06:19] LABS: MAGNESIUM 1.9 mg/dL (1.8-2.4); PHOSPHORUS 2.7 mg/dL (2.5-4.9)
--- NOTE | 2018-07-13 07:05 | NUR ---
REPORT GIVEN TO AM NURSE AT BEDSIDE. PT IN STABLE CONDITION.
--- NOTE | 2018-07-13 07:08 | NUR ---
RECEIVED REPORT FROM FUR FINISHER RN. PT IN STABLE CONDITION, SLEEPING IN BED, AROUSABLE BY VOICE. AAO X3, [place] SPEAKING. NO COMPLAINTS OF PAIN OR DISCOMFORT. PT SEEN SPITTING INTO EMESIS BAG, BUT DENIES NAUSEA. LUNGS CTA. SKIN INTACT. PT IS AMBULATORY. RIGHT SUBCLAVIAN PICC LINE TRIPLE LUMEN PATENT AND RUNNING IVF PER MD ORDERS. ALL SAFETY MEASURES IN PLACE, WILL CONTINUE TO MONITOR. Addendum: 07/13/18 at 0927 by Lata Hunt Meng, RN RIGHT IJ CENTRAL LINE
[2018-07-13] MEDS: ONDANSETRON 4 MG/2 ML VIAL IVP SCH ×3 (07:53→15:59)
[2018-07-13 08:00] VITALS: BP 149/71
[2018-07-13] MEDS: DOCUSATE SODIUM 100 MG GELCAP PO SCH ×2 (08:30→21:00)
[2018-07-13] MEDS: BENAZEPRIL 20 MG TAB PO SCH (08:30)
[2018-07-13] MEDS: CARVEDILOL 3.125 MG TAB PO SCH ×2 (08:30→21:47)
[2018-07-13] MEDS: INSULIN LANTUS 100 UNITS/ML 10 ML VIAL SUBQ SCH ×2 (08:33→17:00)
[2018-07-13] MEDS ORDERED: TPN PER PHARMACY MC PRN (08:40)
--- NOTE | 2018-07-13 08:56 | NUR ---
SMALL AMOUNT OF DIARRHEA. OCCULT STOOL SAMPLE COLLECTED AND WILL BE SENT TO LAB.
--- NOTE | 2018-07-13 11:02 | NUR ---
USED GORE CUTTER PHONE SERVICES TO OBTAIN CONSENT FOR PICC LINE PLACEMENT. PT REFUSED PICC LINE. PT SAYS SHE "DID NOT VOMIT TODAY, ONLY SPITTING" AND "WOULD LIKE TO SEE HOW I TOLERATED FOOD TODAY" AND REVISIT PICC LINE DISCUSSION TOMORROW. DR. ROPER NOTIFIED. TO PUT IN ORDER FOR DIET FOR DINNER.
[2018-07-13] MEDS ORDERED: oxyCODONE/APAP 5/325 MG 1 TAB TAB PO PRN (11:55)
[2018-07-13 12:00] VITALS: BP 178/83
[2018-07-13] MEDS: ATORVASTATIN 20 MG TAB PO SCH (12:27)
[2018-07-13] MEDS: ENALAPRILAT 2.5 MG/2 ML VIAL IVP PRN ×2 (12:28→14:22)
--- NOTE | 2018-07-13 12:28 | NUR ---
Auto Bench Mechanic Note: I faxed patient's face sheet, history of physical, list of medication, labs, microbiology, and MD's consultations to [facility]ie as per embedded case manager Gabriela's request.
[2018-07-13] MEDS: INSULIN LISPRO SLIDING SCALE 100 UNITS/ML VIAL SUBQ PRN (12:33)
[2018-07-13] MEDS ORDERED: traMADol 50 MG TAB PO PRN (12:45)
[2018-07-13] MEDS ORDERED: KETOROLAC 15 MG/ML VIAL IVP SCH (13:00)
--- NOTE | 2018-07-13 14:00 | NUR ---
PER GRISELDA FROM PHARMACY, WILL START TPN DURING WORKFORCE DEVELOPMENT SPECIALIST THROUGH CENTRAL LINE THAT IS ALREADY IN PLACE. ONCE TPN IS STARTED, D5 1/2NS RATE WILL BE REDUCED TO 40 ML/HOUR.
--- NOTE | 2018-07-13 14:07 | NUR ---
PT NOTES CHART REVIEWED AND CLEARED FOR PT BY RN. PATIENT SIDELINE SLEEPING WITH AT BEDSIDE. PATIENT ASKED IF POSSIBLE TO ALLOW TO REST TODAY FROM LACK OF SLEEP. NO OTHER NEEDS EXPRESSED AT THIS TIME AND EDUCATED TO ENCOURAGE HEP PARTICIPATION WHEN AWAKE AND FEELING BETTER. TRAY AND CALL LIGHT IN REACH. CONTACT ISOLATION OBSERVED. RN MADE AWARE, WILL FOLLOW UP PATIENT TOMORROW IF POSSIBLE. Addendum: 07/13/18 at 1508 by Samira Miramontes PT PHYSICAL THERAPY CO-SIGN The Physical Therapy Progress Notes documented by Program Host have been reviewed. WILL FOLLOW UP W/Pt TOMORROW Reviewed/Co-Signed by: Samira Miramontes PT Documentation Done by: ANA DARBY, KALA
--- NOTE | 2018-07-13 15:16 | NUR ---
FAXED CONCURRENT REVIEW TO [facility] [phone] PHONE JOSE F [phone]. JOSE F CALLED EARLIER AND REQUEST SNF PACKET TO BE FAXED TO HER AT [phone] PHONE [phone].
[2018-07-13 16:00] VITALS: BP 148/74
--- NOTE | 2018-07-13 16:00 | NUR ---
PT HAD ELEVATED BP 178/83. DR. ROPER NOTIFIED AND WILL PUT IN ORDER FOR BP MED
--- NOTE | 2018-07-13 16:30 | NUR ---
BS IS 73. WILL MONITOR FOR HYPOGLYCEMIA SYMPTOMS. LANTUS WITHHELD.
[2018-07-13] MEDS ORDERED: ERYTHROMYCIN 250 MG TABEC PO SCH (17:00)
--- NOTE | 2018-07-13 17:05 | NUR ---
DISTRICT WIRE CHIEF SERVICES USED TO OBTAIN CONSENT FOR LAP JAZ, POSSIBLE OPEN JAZ. PT VERBALIZED COMPLETE UNDERSTANDING OF PROCEDURE AND RISKS AND BENEFITS. CONSENT IN CHART.
--- NOTE | 2018-07-13 17:05 | NUR ---
LEFT MESSAGE FOR CENTRAL SUPPLY TO BRING K PAD FOR PT.
--- NOTE | 2018-07-13 18:53 | NUR ---
SUBSCRIPTION CLERK RODNEY BROUGHT K-PAD TO UNIT.
--- NOTE | 2018-07-13 19:15 | NUR ---
RECD. RESTING IN BED, AWAKE, A/OX4. RESPIRATION EVEN AND UNLABORED. IV OF D5 1/2 NS AT 80 ML/HR INFUSING, RIGHT SUB-CLAVIAN CENTRAL LINE. ON BILATELRAL SEQUENTIALS. PLAN OF CARE FOR THE SHIFT DISCUSSED. VERBALIZED UNDERSTANDING. AT THE BEDSIDE, INQUIRED WHEN WILL BE THE SURGERY FOR GALLSTONE BECAUSE PATIENT SIGNED A CONSENT. WILL ASKED SURGEON, AT PRESENT THERE'S NO SCHEDULE YET FOR SURGERY. WITH ON AND OFF PAIN IN THE RIGHT UPPER QUADRANT, K-PAD APPLIED ORDERED. ON BILATERAL LEG SEQUENTIALS. PAIN /10, WILL MEDICATE ORDERED.
--- NOTE | 2018-07-13 19:15 | NUR ---
ENDORSED PLAN OF CARE TO PROPERTY VALUER RN. PT IN STABLE CONDITION.
[2018-07-13 20:00] VITALS: BP 124/61
--- NOTE | 2018-07-13 20:00 | NUR ---
Patient's Plan of Care was discussed and reviewed with SUPERVISOR COOK HOUSE: VIELKA GUTIERREZ
[2018-07-13] MEDS: DEXTROSE IV SCH ×4 (20:42)
[2018-07-13] MEDS: AMINO ACIDS IV SCH ×4 (20:42)
[2018-07-13] MEDS: MULTIVITAMIN IV SCH ×4 (20:42)
[2018-07-13] MEDS: [UNRECOGNIZED DRUG - OTHER] IV SCH ×4 (20:42)
[2018-07-13] MEDS ORDERED: AMITRIPTYLINE 10 MG TAB PO SCH (21:00)
[2018-07-13] MEDS: AMITRIPTYLINE 10 MG TAB PO SCH (21:47)
--- NOTE | 2018-07-13 21:47 | NUR ---
DUE PO MEDICATIONS GIVEN BUT REFUSED TO TAKE COLACE, STATED SHE HAD DIARRHEA TWO TIMES.
--- NOTE | 2018-07-13 22:00 | NUR ---
SPOKE WITH DR. TELLEZ, INQUIRED WHEN WILL HE DO SURGERY ON THE PATIENT. STATED HAD SEEN ALREADY THE PATIENT AND WILL NOT DO ANY SURGERY. INFORMED DR. SCHULTZ, WILL SPEAK WITH PATIENT IN THE MORNING.
[2018-07-14] VITALS: BP 153/72
[2018-07-14] MEDS ORDERED: MORPHINE SULFATE 2 MG/ML SYR IVP PRN (00:35)
[2018-07-14] MEDS: BLOOD GLUCOSE MONITORING 1 DEV DEV FS SCH ×4 (00:50→17:13)
[2018-07-14] MEDS: VANCOMYCIN 500 MG VIAL PO SCH ×4 (00:56→17:12)
[2018-07-14 04:00] VITALS: BP 144/68
[2018-07-14] MEDS: ONDANSETRON 4 MG/2 ML VIAL IVP SCH ×3 (04:44→16:38)
[2018-07-14] MEDS: MEROPENEM 1,000 MG in NACL 0.9% 100 ML IV SCH ×3 (04:54→20:19)
[2018-07-14 06:16] LABS: BASOPHILS # (AUTO) 0.1 K/uL (0.00-0.22); BASOPHILS % (AUTO) 0.5 % (0.0-2.0); EOSINOPHILS # (AUTO) 0.5 K/uL (0-0.4); EOSINOPHILS % (AUTO) 3.9 % (0.0-4.0); HEMATOCRIT 25.7 % (36-48); HEMOGLOBIN 8.6 g/dL (12.0-16.0); LYMPHOCYTES # (AUTO) 2.2 K/uL (2.5-16.5); LYMPHOCYTES % (AUTO) 18.7 % (20.5-51.1); MEAN CORPUSCULAR HEMOGLOBIN 30 pg (27-31); MEAN CORPUSCULAR HGB CONC 34 g/dL (33-37); MEAN CORPUSCULAR VOLUME 88.1 fL (80-94); MONOCYTES # (AUTO) 0.7 K/uL (0.8-1.0); MONOCYTES % (AUTO) 5.8 % (1.7-9.3); NEUTROPHILS # (AUTO) 8.4 K/uL (1.8-7.7); NEUTROPHILS % (AUTO) 71.1 % (42.2-75.2); PLATELET COUNT (AUTO) 305 K/uL (140-450); RED BLOOD CELL COUNT(AUTO) 2.92 MIL/uL (4.20-5.40); RED CELL DISTRIBUTION WIDTH 13.5 % (11.6-13.7); WHITE BLOOD COUNT (AUTO) 11.9 K/uL (4.8-10.8)
[2018-07-14] MEDS: INSULIN LISPRO SLIDING SCALE 100 UNITS/ML VIAL SUBQ PRN ×2 (06:25→12:10)
--- NOTE | 2018-07-14 06:30 | NUR ---
[facility] RESPONDED TO REQUEST FOR FAX PT'S RECORD.THEY SAID YOUR REQUEST IS BEING RETURNED TO YOU BECAUSE OF :THERE IS NO RECORD OF THE PT.IDENTIFIED IN THE ATTACHED AUTHORIZATION.IF YOU HAVE ANY QUESTION,PLEASE CALL THE [facility]PARTMENT AT [phone].
[2018-07-14 06:57] LABS: ANION GAP 8.8 (8-16); CARBON DIOXIDE 24.9 mmol/L (21-32); CREATININE 1.2 mg/dL (0.6-1.3)
[2018-07-14 07:07] LABS: MAGNESIUM 1.5 mg/dL (1.8-2.4)
--- NOTE | 2018-07-14 07:15 | NUR ---
DR. TELLEZ CAME AND SPOKE WITH PATIENT, WILL DO SURGERY. ENDORSED TO AM NURSE FOR CONTINUITY OF CARE.
[2018-07-14 07:16] LABS: POTASSIUM 2.7 mmol/L (3.5-5.1)
--- NOTE | 2018-07-14 07:30 | NUR ---
RECEIVED REPORT FROM MINING DETAIL DRAFTSPERSON RN AT BEDSIDE. CONTACT FOR ESBL URINE. AAO X4. LUNGS CTA. COMPLAINING OF 8/10 PAIN, WILL ADMINISTER MORPHINE IVP. COMPLAINING OF SOME NAUSEA BUT NOT VOMITING SEEN AT THIS TIME. PT IS AMBULATORY BUT WITH GENERALIZED WEAKNESS. RIGHT SUBCLAVIAN CENTRAL LINE INFUSING TPN AND IVF. ALL SAFETY PRECAUTIONS IN PLACE, WILL CONTINUE TO MONITOR.
[2018-07-14] MEDS: ENALAPRILAT 2.5 MG/2 ML VIAL IVP PRN ×3 (07:42→20:51)
[2018-07-14 08:00] VITALS: BP 182/87
--- NOTE | 2018-07-14 08:30 | NUR ---
PER DR. TELLEZ, KEEP PT NPO, INCLUDING ORAL MEDS.
[2018-07-14] MEDS: CARVEDILOL 3.125 MG TAB PO SCH ×2 (09:00→20:21)
[2018-07-14] MEDS: BENAZEPRIL 20 MG TAB PO SCH (09:00)
[2018-07-14] MEDS: DOCUSATE SODIUM 100 MG GELCAP PO SCH ×2 (09:00→20:21)
[2018-07-14] MEDS: ATORVASTATIN 20 MG TAB PO SCH (09:00)
[2018-07-14] MEDS: INSULIN LANTUS 100 UNITS/ML 10 ML VIAL SUBQ SCH ×2 (10:18→17:15)
--- NOTE | 2018-07-14 10:22 | NUR ---
ONLY ONE LUMEN ON RIGHT SUBCLAVIAN CENTRAL LINE PATENT. DR. ROPER NOTIFIED. WILL ADMINISTER KCL IV WHEN SECOND LUMEN IS PATENT.
--- NOTE | 2018-07-14 10:42 | NUR ---
HEPARIN FOR CLOGGED CENTRAL LINE NOT AVAILABLE IN PT CASSETTE. CALLED PHARMACY. THEY WILL BRING TO UNIT.
--- NOTE | 2018-07-14 10:48 | NUR ---
PER PHARMACY, MAG SULFATE IVF WILL BE ADJUSTED WITH TPN, SO DO NOT ADMINISTER THE MAG SULFATE. GRISELDA TO CALL ME BACK FOR FURTHER CLARIFICATION.
[2018-07-14] MEDS: KCL 20 MEQ/WATER INJ PREMIX 100 ML IV SCH ×2 (11:12→13:07)
--- NOTE | 2018-07-14 11:13 | NUR ---
PER GRISELDA FROM PHARMACY, STOP IVF AND RUN KCL INSTEAD, TOGETHER WITH TPN. PER GRISELDA, MAG SULFATE WILL BE GIVEN IN TRADESHOW WORKER. WILL ADMINISTER ALTEPASE TO CLOGGED CENTRAL LINE PORTS WHEN AVAILABLE.
[2018-07-14 12:00] VITALS: BP 163/79
[2018-07-14] MEDS ORDERED: ALTEPLASE 2 MG VIAL MC SCH (12:00)
--- NOTE | 2018-07-14 13:18 | NUR ---
PT NOTES CHART REVIEWED. CLEARED BY RN FOR Vivian HERNANDEZ. PATIENT FAMILY AT BEDSIDE, DECLINED TO PARTICIPATE IN THERAPY. PATIENT WILL POSSIBLY HAVE SX TODAY OR TOMORROW. EDUCATED PATIENT'S FAMILY ON ANKLE PUMPS TO IMPROVE CIRCULATION & VERBALIZED UNDERSTANDING. DISCUSSED W/ PRIMARY PHYSICAL THERAPIST. Addendum: 07/14/18 at 1532 by Samira Miramontes PT PHYSICAL THERAPY CO-SIGN The Physical Therapy Progress Notes documented by Forest Fire Warden have been reviewed. WILL FOLLOW UP W/Pt Reviewed/Co-Signed by: Samira Miramontes PT Documentation Done by: ASPEN SOSA PTA
--- NOTE | 2018-07-14 13:44 | NUR ---
SCHEDULED ABX ADMINISTERED AT THIS TIME.
--- NOTE | 2018-07-14 15:00 | NUR ---
PT HAS BEEN REPORTING 5/10 PAIN BUT IS REFUSING THE MORPHINE. UNABLE TO TAKE ULTRAM DUE TO NPO, INCLUDING MEDS.
--- NOTE | 2018-07-14 15:29 | NUR ---
FAXED CONCURRENT REVIEW TO [facility] [phone] PHONE JOSE F [phone]. PER JOSE F FROM [facility]. SHE SAID SHE FOUND A SNF THAT WILL TAKE THIS PATIENT UPON DISCHARGE. NAME IS LISA PORTILLO [id number] [address]. PHONE [phone] SHE SAID SHE SPOKE WITH THE CARGOMAN, ROB. PHONE FOR ROB IS [phone]. SHE SAID HE WAS AWARE OF THE TPN AND ISOLATION. IF PATIENT DISCHARGED THIS WEEKEND, CALL JOSE F AT [facility], AT [phone], AND HER ANSWERING MACHINE WILL GIVE THE [place] WEEKEND PERSON TO CALL FOR [facility] FOR SNF AND TRANSPORT.
[2018-07-14 16:00] VITALS: BP 168/79
--- NOTE | 2018-07-14 16:16 | NUR ---
07/14/18 RD FOLLOW UP COMPLETED PLEASE REFER TO NUTRITION ASSESSMENT UNDER CARE ACTIVITY FOR ESTIMATED NUTRITIONAL NEEDS. 1. CONTINUE TPN TOLERATED AND MEDICALLY NECESSARY -THIS WILL PROVIDE 489 KCAL, DEXTROSE 10% AND AA 4.25% AT 40ML/HR. 2. IF/WHEN PT IS MEDICALLY STABLE CONSIDER FULL LIQUID DIET TOLERATED 3. RD TO FOLLOW-UP 2-3 DAYS, HIGH RISK LUIS LOUIE, RD
--- NOTE | 2018-07-14 16:48 | NUR ---
MAG SULFATE HAD BEEN SCHEDULED AT 1600 AND HAS BEEN ADMINISTERED NOW.
[2018-07-14] MEDS ORDERED: MAG SULF 2000 MG/WATER PREMIX 50 ML IV SCH ×2 (17:00→21:00)
--- NOTE | 2018-07-14 17:53 | NUR ---
PATIENT HAS HAD SEVERAL EPISODES OF VOMITING TODAY. VOMITUS AMOUNT APPROXIMATELY 100 ML.
[2018-07-14] MEDS: KETOROLAC 15 MG/ML VIAL IVP SCH (18:00)
--- NOTE | 2018-07-14 18:01 | NUR ---
DISCUSSED WITH MD REGARDING LACK OF CONTROL OF PAIN AND NAUSEA FOR PATIENT. PT COMPLAINING THAT MORPHINE MAKES HER NAUSEOUS. NAUSEA IS NOT WELL CONTROLLED WITH SCHEDULED ZOFRAN. MD IS ALSO AWARE THAT PT'S EKG ON TELE MONITORING HAVE BEEN ABNORMAL WITH INVERTED T AND DEPRESSED ST.
--- NOTE | 2018-07-14 18:45 | NUR ---
FAMILY BROUGHT MEDARDO TO UNIT. LEFT HOME MEDICATIONS IN TELE MED ROOM RETURN BOX. Addendum: 07/14/18 at 1850 by Lata Hunt Meng, RN DISREGARD, WRONG PATIENT.
--- NOTE | 2018-07-14 18:49 | NUR ---
PATIENT COMPLAINING OF ITCHING ON BOTTOM. TURNED PATIENT OVER AND SAW WHAT SEEMS TO BE HEMORRHOIDS/RECTAL PROLAPSE. WILL PAGE DR. VILLANUEVA AGAIN AND ENDORSE TO ROADS AND PARKING LOTS SWEEPER OPERATOR. Addendum: 07/14/18 at 1850 by Lata Hunt Meng, RN DISREGARD, WRONG PATIENT.
--- NOTE | 2018-07-14 19:26 | NUR ---
ENDORSED PLAN OF CARE TO FLIGHT CREW SCHEDULER RN. PT IN STABLE CONDITION.
--- NOTE | 2018-07-14 19:27 | NUR ---
RECEIVED REPORT FROM DAY SHIFT RN FOR CONTINUITY OF CARE. PT IS A/OX4, ON ROOM AIR. ABLE TO MAKE NEEDS KNOWN, ABLE TO FOLLOW COMMANDS. PT SKIN IS INTACT. PT HAS TRIPLE LUMEN CENTRAL LINE, ASYMPTOMATIC, INTACT AND PATENT. DISCUSSED PLAN OF CARE WITH PT, PT VERBALIZED UNDERSTANDING. VITAL SIGNS WITHIN NORMAL LIMITS. PT STABLE, NO SIGNS OF DISTRESS NOTED AT THIS TIME. BED IN LOWEST POSITION, BED ALARM ON. CALL LIGHT WITHIN REACH, WILL CONTINUE TO MONITOR.
[2018-07-14 19:32] VITALS: BP 161/78
[2018-07-14] MEDS ORDERED: KETOROLAC 15 MG/ML VIAL IM ONE (19:45)
--- NOTE | 2018-07-14 19:48 | NUR ---
PT IS AWAKE AND IN PAIN, SPOKE TO DR SCHULTZ ABOUT ORDERING SOMETHING FOR PT BECAUSE LAST SCHEDULED TORADOL WAS SCHEDULED NON ADMIN, ORDERED ONE TIME DOSE OF TORADOL. ADMINISTERED TORADOL, PT TOLERATED WELL.
[2018-07-14] MEDS: [UNRECOGNIZED DRUG - OTHER] IV SCH ×4 (20:11)
[2018-07-14] MEDS: DEXTROSE IV SCH ×4 (20:11)
[2018-07-14] MEDS: AMINO ACIDS IV SCH ×4 (20:11)
[2018-07-14] MEDS: MULTIVITAMIN IV SCH ×4 (20:11)
[2018-07-14] MEDS: DEXT 5% / NACL 0.45% 1,000 ML IV SCH (20:20)
[2018-07-14] MEDS: AMITRIPTYLINE 10 MG TAB PO SCH (20:22)
--- NOTE | 2018-07-14 20:51 | NUR ---
ADMINISTERED SCHEDULED MEDICATIONS AND PRN BP MED FOR ELEVATED BLOOD PRESSURE, PT TOLERATED WELL. WILL REASSESS BLOOD PRESSURE.
[2018-07-14] MEDS ORDERED: KCL 20 MEQ/WATER INJ PREMIX 100 ML IV SCH (21:00)
[2018-07-14] MEDS ORDERED: PROMETHAZINE 25 MG/ML VIAL IM PRN (21:35)
--- NOTE | 2018-07-14 22:14 | NUR ---
PT NOW RESTING COMFORTABLY, BLOOD PRESSURE MORE STABLE NOW. NO SIGNS OF DISTRESS NOTED AT THIS TIME. BED IN LOWEST POSITION, BED ALARM ON. CALL LIGHT WITHIN REACH, WILL CONTINUE TO MONITOR.
[2018-07-15] VITALS: BP 145/69
--- NOTE | 2018-07-15 | NUR ---
VITAL SIGNS WITHIN NORMAL LIMITS. PT STABLE, NO SIGNS OF DISTRESS NOTED AT THIS TIME. BED IN LOWEST POSITION, BED ALARM ON. CALL LIGHT WITHIN REACH, WILL CONTINUE TO MONITOR.
[2018-07-15] MEDS: BLOOD GLUCOSE MONITORING 1 DEV DEV FS SCH ×4 (00:23→18:24)
--- NOTE | 2018-07-15 02:24 | NUR ---
PT STABLE, NO SIGNS OF DISTRESS NOTED AT THIS TIME. BED IN LOWEST POSITION, BED ALARM ON. CALL LIGHT WITHIN REACH, WILL CONTINUE TO MONITOR.
[2018-07-15 04:00] VITALS: BP 140/69
[2018-07-15] MEDS: MEROPENEM 1,000 MG in NACL 0.9% 100 ML IV SCH ×3 (04:57→20:59)
[2018-07-15] MEDS: KETOROLAC 15 MG/ML VIAL IVP SCH ×4 (05:56→17:10)
[2018-07-15] MEDS: PHARMACY COMMENTS MC SCH ×2 (05:57)
[2018-07-15] MEDS: VANCOMYCIN 500 MG VIAL PO SCH ×4 (05:57→17:11)
--- NOTE | 2018-07-15 06:13 | NUR ---
PT AMBULATED WITH MAXIMUM ASSIST TO RESTROOM AND BACK TO BED. TOLERATED WELL.
[2018-07-15] MEDS: ONDANSETRON 4 MG/2 ML VIAL IVP SCH ×3 (07:06→16:34)
[2018-07-15 07:16] LABS: BASOPHILS % (AUTO) 0.3 % (0.0-2.0); EOSINOPHILS # (AUTO) 0.3 K/uL (0-0.4); EOSINOPHILS % (AUTO) 2.4 % (0.0-4.0); HEMATOCRIT 23.6 % (36-48); LYMPHOCYTES # (AUTO) 2.1 K/uL (2.5-16.5); LYMPHOCYTES % (AUTO) 16.6 % (20.5-51.1); MEAN CORPUSCULAR HEMOGLOBIN 30 pg (27-31); MEAN CORPUSCULAR HGB CONC 34 g/dL (33-37); MEAN CORPUSCULAR VOLUME 87.5 fL (80-94); MONOCYTES # (AUTO) 0.6 K/uL (0.8-1.0); MONOCYTES % (AUTO) 5.2 % (1.7-9.3); NEUTROPHILS # (AUTO) 9.4 K/uL (1.8-7.7); NEUTROPHILS % (AUTO) 75.5 % (42.2-75.2); PLATELET COUNT (AUTO) 282 K/uL (140-450); RED CELL DISTRIBUTION WIDTH 13.2 % (11.6-13.7); WHITE BLOOD COUNT (AUTO) 12.4 K/uL (4.8-10.8)
--- NOTE | 2018-07-15 07:35 | NUR ---
ENDORSED PT TO DAY SHIFT RN FOR CONTINUITY OF CARE. PT IN STABLE CONDITION.
--- NOTE | 2018-07-15 07:40 | NUR ---
RECEIVED REPORT FROM GENERAL PRODUCTION MANAGER RN. PT RESTING IN BED ALERT, AWAKE, ABLE TO MAKE NEEDS KNOWN. SKIN DRY AND WARM TO TOUCH. LUNGS CLEAR. ABDOMEN SOFT, NON-TENDER. ACTIVE BOWEL SOUND. SKIN INTACT. RIGHT SUBCLAVIAN CENTRAL LINE ON. WHITE LINE NOT WORKING. TPN RUNNING AT 40 ML/HR. D5% 1/2 NS RUNNING AT 40 ML/HR. SKIN INTACT. ON NPO FOR SURGERY. HOB ELEVATED. BED IN LOW POSITION LOCKED. NO C/O PAIN AT THIS TIME. WILL CONTINUE TO MONITOR.
[2018-07-15 07:45] VITALS: BP 157/70
[2018-07-15 07:45] LABS: ANION GAP 9.5 (8-16); CARBON DIOXIDE 22.7 mmol/L (21-32); POTASSIUM 3.2 mmol/L (3.5-5.1)
[2018-07-15 07:47] LABS: MAGNESIUM 2.3 mg/dL (1.8-2.4); PHOSPHORUS 2.6 mg/dL (2.5-4.9)
--- NOTE | 2018-07-15 07:55 | NUR ---
PT TAKEN TO THE OR BY OR NURSE THONY VIA BED. PT MADE AWARE, ON STABLE CONDITION.
[2018-07-15] MEDS ORDERED: KCL 20 MEQ/WATER INJ PREMIX 100 ML IV SCH (08:00)
[2018-07-15] MEDS ORDERED: MIDAZOLAM 2 MG/2 ML VIAL ONE (08:10)
[2018-07-15] MEDS ORDERED: fentaNYL 0.05 MG/ML VIAL ONE (08:10)
[2018-07-15] MEDS ORDERED: DEXAMETHASONE 4 MG/ML VIAL ONE (08:16)
[2018-07-15] MEDS ORDERED: LIDOCAINE 2% 100 MG/5 ML SYR IVP ONE (08:16)
[2018-07-15] MEDS ORDERED: PROPOFOL 200 MG/20 ML VIAL IV ONE (08:16)
[2018-07-15] MEDS ORDERED: PHENYLEPHRINE 10 MG/ML VIAL ONE (08:16)
[2018-07-15] MEDS ORDERED: ROCURONIUM 50 MG/5 ML VIAL IV ONE (08:16)
[2018-07-15] MEDS ORDERED: GLYCOPYRROLATE 0.2 MG/ML VIAL ONE (08:16)
[2018-07-15] MEDS ORDERED: SUCCINYLCHOLINE CHLORIDE 200 MG/10 ML VIAL IVP ONE (08:16)
[2018-07-15] MEDS ORDERED: DESFLURANE 240 ML BTL INH ONE (08:16)
[2018-07-15] MEDS ORDERED: KCL 20 MEQ/WATER INJ PREMIX 100 ML IV ONE (08:29)
[2018-07-15] MEDS: ATORVASTATIN 20 MG TAB PO SCH (09:00)
[2018-07-15] MEDS: CARVEDILOL 3.125 MG TAB PO SCH ×2 (09:00→21:00)
[2018-07-15] MEDS: INSULIN LANTUS 100 UNITS/ML 10 ML VIAL SUBQ SCH ×2 (09:00→16:33)
[2018-07-15] MEDS: BENAZEPRIL 20 MG TAB PO SCH (09:00)
[2018-07-15] MEDS ORDERED: ONDANSETRON 4 MG/2 ML VIAL IVP PRN (09:00)
[2018-07-15] MEDS ORDERED: BLOOD GLUCOSE MONITORING 1 DEV DEV FS SCH (09:00)
[2018-07-15] MEDS: DOCUSATE SODIUM 100 MG GELCAP PO SCH ×2 (09:00→21:00)
[2018-07-15] MEDS ORDERED: HYDROmorphone 1 MG/ML AMP IVP PRN (09:00)
[2018-07-15] MEDS: BUPIVACAINE-MPF 0.5% 30 ML VIAL INJ ONE ×2 (09:07→09:34)
--- NOTE | 2018-07-15 09:11 | NUR ---
UNABLE TO GIVE 0900 AM MEDICINE. PT IS IN OR FOR SURGERY.
--- NOTE | 2018-07-15 10:30 | NUR ---
RECEIVED PT FROM OR VIA BED. PT ALERT ORIENTED. ABLE TO MAKE NEEDS KNOWN. 4 BANDAGES NOTED ON ABDOMEN. NO ACTIVE BLEEDING FROM SITE. PT C/O PAIN AT SITE. DR. URBINA MADE AWARE. VS CHECKED WAS T 97.7 P 90 RR 18 BP 155/71 SPO2 100%. KEPT PT COVERED WITH BLANKET IN COMFORTABLE POSITION. BED IN LOW POSITYION LOCKED. AT BEDSIDE.
--- NOTE | 2018-07-15 11:06 | NUR ---
PT AND SAID OKAY TO GIVE DILAUDID FOR PAIN.
[2018-07-15 12:00] VITALS: BP 156/71
[2018-07-15] MEDS: NACL 0.9% 1,000 ML IV SCH (12:10)
[2018-07-15] MEDS: INSULIN LISPRO SLIDING SCALE 100 UNITS/ML VIAL SUBQ PRN ×4 (12:48→21:06)
--- NOTE | 2018-07-15 13:01 | NUR ---
Wool Tamper Note: Per Dr. Cordero, she is anticipating for patient to be discharge tomorrow. Please note [facility] is not a detention facility, [facility], [address] [place], [place] [id number], phone number . I spoke with senior human resources representative of [facility], Carmen informed her we are anticipating for patient to be discharge tomorrow 07/16/18. Per Carmen, she is going to be meeting with patient today at hospital and will provide patient with information about facility. I informed Carmen patient's nurse Arabella will call [facility] and discuss TPN status, I provided RN Arab[facility] and requested for her to speak with senior systems administrator Obinna from [facility] and discuss TPN status.
--- NOTE | 2018-07-15 13:04 | NUR ---
P.T. NOTES HOLD P.T. [place] TODAY; WILL AWAIT MD CLEARANCE FOR POST OP RE EVAL S/P JUSTYN ROMEROE PER CHART.
--- NOTE | 2018-07-15 13:21 | NUR ---
Fashion Intern Note: Per director of strategic communications of [facility] if patient will need TPN a formula of TPN needs to be fax to [facility] before patient is transfer to their facility because they will need to order TPN before patient arrives to facility, patient's nurse Arabella and made aware.
--- NOTE | 2018-07-15 13:28 | NUR ---
PT EATING LUUNCH. TOLERATING WELL. PT DENIES N/V. DR. URBINA MADE AWARE. PER DR. URBINA PT DOES NOT NEED TPN. WILL FOLLOW UP ON ORDER.
[2018-07-15] MEDS ORDERED: POTASSIUM CHLORIDE 10 MEQ TABER PO SCH (13:45)
--- NOTE | 2018-07-15 14:09 | NUR ---
RECEIVED CALL FROM [facility], SPOKE WITH CHARGE NURSE BRIDGET MADE AWARE ABOUT PT FEEDING STATUS AND DISCONTINUATION OF TPN. REQUESTED FOR LABS FAX. RECENT LABS WILL FAXED TO [phone]. Addendum: 07/15/18 at 1423 by Arabella Sin RN PT IS GOING TO THIS FACILITY AFTER DISCHARGE.
--- NOTE | 2018-07-15 14:23 | NUR ---
FAXED RECENT LABS TO [phone].
--- NOTE | 2018-07-15 15:47 | NUR ---
DR. URBINA MADE AWARE ABOUT LOW HB 8, CA 7.7 AND POTASSIUM 3.2.
[2018-07-15 16:00] VITALS: BP 133/60
--- NOTE | 2018-07-15 18:17 | NUR ---
PT C/O UNABLE TO VOID SINCE AFTER SURGERY. DENIES BLADDER DISCOMFORT. BLADDER SCAN DONE: SHOWED >[address] LESLIE MADE AWARE. WILL FOLLOW UP ON ORDER.
[2018-07-15] MEDS ORDERED: TAMSULOSIN 0.4 MG CAP PO ONE (18:20)
--- NOTE | 2018-07-15 19:37 | NUR ---
ENDORSED TO EXTENSION SERVICE ADVISOR RN FOR CONTINUITY OF CARE. PT ON STABLE CONDITION.
--- NOTE | 2018-07-15 19:40 | NUR ---
RECEIVED REPORT FROM DAY SHIFT RN FOR CONTINUITY OF CARE. PT IS A/OX4, ON ROOM AIR. ABLE TO MAKE NEEDS KNOWN, ABLE TO FOLLOW COMMANDS. PT S/P LAP JAZ WITH 4 ABDOMINAL INCISIONS. PT HAS TRIPLE LUMEN CENTRAL LINE, ASYMPTOMATIC, INTACT AND PATENT EXCEPT FOR ONE CATHETER. DISCUSSED PLAN OF CARE WITH PT, PT VERBALIZED UNDERSTANDING. VITAL SIGNS WITHIN NORMAL LIMITS. PT STABLE, NO SIGNS OF DISTRESS NOTED AT THIS TIME. BED IN LOWEST POSITION, BED ALARM ON. CALL LIGHT WITHIN REACH, WILL CONTINUE TO MONITOR.
[2018-07-15 19:53] VITALS: BP 118/55
[2018-07-15] MEDS: DEXTROSE IV SCH ×4 (20:00)
[2018-07-15] MEDS: AMINO ACIDS IV SCH ×4 (20:00)
[2018-07-15] MEDS: MULTIVITAMIN IV SCH ×4 (20:00)
[2018-07-15] MEDS: [UNRECOGNIZED DRUG - OTHER] IV SCH ×4 (20:00)
[2018-07-15] MEDS: AMITRIPTYLINE 10 MG TAB PO SCH (21:00)
--- NOTE | 2018-07-15 21:06 | NUR ---
ADMINISTERED SCHEDULED MEDICATIONS, PT TOLERATED WELL.
[2018-07-15] MEDS: ZOLPIDEM 5 MG TAB PO PRN (21:23)
--- NOTE | 2018-07-15 21:23 | NUR ---
PT REQUESTED SLEEPING PILL, ADMINISTERED AMBIEN AND PT TOLERATED WELL.
[2018-07-16] VITALS: BP 152/65
[2018-07-16] MEDS: PHARMACY COMMENTS MC SCH ×4 (00:26→17:19)
[2018-07-16] MEDS: KETOROLAC 15 MG/ML VIAL IVP SCH ×4 (00:26→17:49)
[2018-07-16] MEDS: VANCOMYCIN 500 MG VIAL PO SCH ×4 (00:26→17:20)
[2018-07-16] MEDS: NACL 0.9% 1,000 ML IV SCH ×2 (00:27→16:46)
[2018-07-16 04:00] VITALS: BP 138/62
--- NOTE | 2018-07-16 05:00 | NUR ---
DID STRAIGHT CATH ON PT BECAUSE PT HAS NOT YET VOIDED OTHER THAN THE 50ML AT THE BEGINNING OF SHIFT.
[2018-07-16] MEDS ORDERED: WATER STERILE 20 ML MC ONE ×2 (05:14→12:28)
[2018-07-16] MEDS: MEROPENEM 1,000 MG in NACL 0.9% 100 ML IV SCH ×3 (05:20→20:45)
[2018-07-16] MEDS: ONDANSETRON 4 MG/2 ML VIAL IVP SCH ×3 (06:56→17:19)
[2018-07-16] MEDS: BLOOD GLUCOSE MONITORING 1 DEV DEV FS SCH ×4 (06:56→20:51)
--- NOTE | 2018-07-16 07:30 | NUR ---
RECEIVED REPORT FROM SANDING MACHINE TENDER AUTOMATIC NURSE MELBA AT BEDSIDE FOR CONTINUITY OF CARE. PT IS AWAKE AND ORIENTED X4. INTRODUCED SELF AND UPDATED BOARD. PT DENIES PAIN. NO SIGNS OF DISTRESS. LUNG SOUNDS CLEAR, O2 SAT 98% ON RA. BED IN LOW POSITION, WHEELS LOCKED, WILL CONTINUE TO MONITOR.
[2018-07-16 07:46] LABS: BASOPHILS # (AUTO) 0.1 K/uL (0.00-0.22); BASOPHILS % (AUTO) 0.5 % (0.0-2.0); EOSINOPHILS # (AUTO) 0.2 K/uL (0-0.4); EOSINOPHILS % (AUTO) 1.1 % (0.0-4.0); LYMPHOCYTES # (AUTO) 3.6 K/uL (2.5-16.5); LYMPHOCYTES % (AUTO) 24.4 % (20.5-51.1); MEAN CORPUSCULAR HEMOGLOBIN 30 pg (27-31); MEAN CORPUSCULAR HGB CONC 33 g/dL (33-37); MEAN CORPUSCULAR VOLUME 88.8 fL (80-94); MONOCYTES # (AUTO) 0.8 K/uL (0.8-1.0); MONOCYTES % (AUTO) 5.2 % (1.7-9.3); NEUTROPHILS # (AUTO) 10.2 K/uL (1.8-7.7); NEUTROPHILS % (AUTO) 68.8 % (42.2-75.2); PLATELET COUNT (AUTO) 265 K/uL (140-450); RED BLOOD CELL COUNT(AUTO) 2.22 MIL/uL (4.20-5.40); RED CELL DISTRIBUTION WIDTH 13.3 % (11.6-13.7); WHITE BLOOD COUNT (AUTO) 14.8 K/uL (4.8-10.8)
[2018-07-16 08:00] VITALS: BP 145/72
[2018-07-16 08:06] LABS: MAGNESIUM 1.9 mg/dL (1.8-2.4); PHOSPHORUS 2.4 mg/dL (2.5-4.9)
[2018-07-16 08:14] LABS: ALBUMIN 1.3 g/dL (3.4-5.0); ANION GAP 6.2 (8-16); CREATININE 1.1 mg/dL (0.6-1.3); POTASSIUM 4.2 mmol/L (3.5-5.1); TOTAL BILIRUBIN 0.1 mg/dL (0.0-1.0)
--- NOTE | 2018-07-16 08:19 | NUR ---
PATIENT WITH BREAKFAST TRAY AT THIS TIME NO SOB NOTED SANIPRACTIC PHYSICIAN TO ATTEMPT INCENTIVE SPIROMETRY THERAPY AT A LATER TIME
[2018-07-16] MEDS: BENAZEPRIL 20 MG TAB PO SCH (08:41)
[2018-07-16] MEDS: DOCUSATE SODIUM 100 MG GELCAP PO SCH ×4 (08:41→21:00)
[2018-07-16] MEDS: ATORVASTATIN 20 MG TAB PO SCH (08:41)
[2018-07-16] MEDS: CARVEDILOL 3.125 MG TAB PO SCH ×2 (08:42→20:46)
[2018-07-16] MEDS: DEXTROSE 50% 50 ML SYR IVP PRN (08:42)
--- NOTE | 2018-07-16 08:42 | NUR ---
PT BLD GLUCOSE WAS 63. ADMINISTERED DEXTROSE IVP. RECHECKED BS WAS 184. NO S/SX OF HYPOGLYCEMIA. PT EATING BREAKFAST NOW. WILL CONTINUE TO MONITOR.
[2018-07-16] MEDS: INSULIN LANTUS 100 UNITS/ML 10 ML VIAL SUBQ SCH ×2 (08:54→17:00)
[2018-07-16 09:33] LABS: HEMATOCRIT 19.7 % (36-48); HEMOGLOBIN 6.6 g/dL (12.0-16.0)
--- NOTE | 2018-07-16 10:30 | NUR ---
ASSISTED PT TO BATHROOM. PT VOIDED. SITTING UP IN CHAIR. PT REPORTED ABD PAIN FROM GAS. NO PAIN MEDIATION REQUESTED AT THIS TIME. REPORTED TO DR. URBINA PT HAD VOID AND GAS PAIN. WILL CONTINUE TO MONITOR.
[2018-07-16 12:00] VITALS: BP 114/65
[2018-07-16] MEDS: ACETAMINOPHEN 325 MG TAB PO SCH ×2 (12:00→16:00)
[2018-07-16] MEDS ORDERED: FUROSEMIDE 20 MG TAB PO SCH (12:00)
--- NOTE | 2018-07-16 13:15 | NUR ---
STARTED 1 UNIT OF BLOOD TRANSFUSION. VS: BP 145/64, HR 104, O2 SAT 100% ON RA, RR 18, TEMP 98.4. WILL CONTINUE TO MONITOR.
--- NOTE | 2018-07-16 14:02 | NUR ---
TOLERATED INCENTIVE SPIROMETRY THERAPY WELL WITHOUT INCIDENT ENCOURAGED PATIENT WITH ACKNOWLEDGEMENT TO USE EVERY 1-2 HOURS WHILE AWAKE FAMILY MEMBER AT BEDSIDE
--- NOTE | 2018-07-16 15:05 | NUR ---
CHECKED ON PT IN ROOM. BLOOD TRANSFUSION STILL INFUSING. NO REACTIONS. FAMILY AT BEDSIDE. WILL CONTINUE TO MONITOR.
[2018-07-16 16:00] VITALS: BP 121/77
--- NOTE | 2018-07-16 16:45 | NUR ---
DR. SNOW CAME IN TO SEE PT CARDIOLOGY CONSULT.
[2018-07-16] MEDS ORDERED: FUROSEMIDE 20 MG TAB ONE (17:00)
--- NOTE | 2018-07-16 17:00 | NUR ---
1 UNIT OF BLOOD TRANSFUSION COMPLETED. NO REACTIONS. VS: TEMP 98.3, HR 102, RR, 18, BP 121/77. REPORTED TO DR. JONES. ORDERS RECEIVED.
--- NOTE | 2018-07-16 17:15 | NUR ---
DR. TELLEZ CAME IN TO SEE PT. NO ORDERS RECEIVED.
--- NOTE | 2018-07-16 19:20 | NUR ---
ENDORSED PT TO STORE STANDARDS ASSOCIATE NURSE SURESH AT BEDSIDE FOR CONTINUITY OF CARE. PT IN STABLE CONDITION.
[2018-07-16 19:21] LABS: BASOPHILS # (AUTO) 0.1 K/uL (0.00-0.22); BASOPHILS % (AUTO) 0.7 % (0.0-2.0); EOSINOPHILS # (AUTO) 0.4 K/uL (0-0.4); EOSINOPHILS % (AUTO) 2.3 % (0.0-4.0); HEMATOCRIT 26.2 % (36-48); HEMOGLOBIN 8.7 g/dL (12.0-16.0); LYMPHOCYTES # (AUTO) 3.2 K/uL (2.5-16.5); LYMPHOCYTES % (AUTO) 19.9 % (20.5-51.1); MEAN CORPUSCULAR HEMOGLOBIN 30 pg (27-31); MEAN CORPUSCULAR HGB CONC 33 g/dL (33-37); MEAN CORPUSCULAR VOLUME 89.2 fL (80-94); MONOCYTES # (AUTO) 0.8 K/uL (0.8-1.0); MONOCYTES % (AUTO) 5.2 % (1.7-9.3); NEUTROPHILS # (AUTO) 11.6 K/uL (1.8-7.7); NEUTROPHILS % (AUTO) 71.9 % (42.2-75.2); PLATELET COUNT (AUTO) 269 K/uL (140-450); RED BLOOD CELL COUNT(AUTO) 2.94 MIL/uL (4.20-5.40); RED CELL DISTRIBUTION WIDTH 13.8 % (11.6-13.7); WHITE BLOOD COUNT (AUTO) 16.2 K/uL (4.8-10.8)
--- NOTE | 2018-07-16 19:21 | NUR ---
RECEIVED REPORT FROM DAY SHIFT NURSE. PT IN BED. AAOX4. NO C/O PAIN. NO RESP DISTRESS NOTED. PT ON ROOM AIR. PT HAS RIGHT IJ, 3 LUMENS, DRESSING CLEAN, DRY AND INTACT. SAFETY PRECAUTION IN PLACE. CALL LIGHT WITHIN REACH.
[2018-07-16 20:00] VITALS: BP 150/66
[2018-07-16] MEDS: AMITRIPTYLINE 10 MG TAB PO SCH (20:46)
--- NOTE | 2018-07-16 20:52 | NUR ---
BLOOD SUGAR CHECKED 73. ORANGE JUICE GIVEN. NO DISTRESS NOTED.
--- NOTE | 2018-07-16 21:00 | NUR ---
COLACE HELD. PER PT, SHE HAS LOOSE STOOL. DR. VELASQUEZ MADE AWARE.
--- NOTE | 2018-07-16 22:30 | NUR ---
PT LYING COMFORTABLY IN BED. NO C/O PAIN OR SOB NOTED. NO C/O NAUSEA OR VOMITING. NEEDS MET AT THIS TIME. CALL LIGHT WITHIN REACH.
[2018-07-17] VITALS: BP 150/88
[2018-07-17] MEDS: KETOROLAC 15 MG/ML VIAL IVP SCH ×4 (00:07→17:33)
[2018-07-17] MEDS: PHARMACY COMMENTS MC SCH ×3 (00:08→11:55)
[2018-07-17] MEDS: VANCOMYCIN 500 MG VIAL PO SCH ×3 (00:08→11:46)
[2018-07-17] MEDS: ZOLPIDEM 5 MG TAB PO PRN (00:21)
--- NOTE | 2018-07-17 00:21 | NUR ---
PT STATED SHE WANTS MEDICINE TO MAKE HER SLEEP. AMBIEN 5 MG PO GIVEN ORDERED.
--- NOTE | 2018-07-17 02:37 | NUR ---
PT SLEEPING. NO S/S OF RESP DISTRESS. NO S/S OF PAIN.
[2018-07-17] MEDS: LORazepam 2 MG/ML VIAL IM/IVP PRN (03:14)
--- NOTE | 2018-07-17 03:14 | NUR ---
PT STATED SHE'S ANXIOUS. ATIVAN 1 MG IVP GIVEN ORDERED.
[2018-07-17 04:00] VITALS: BP 130/61
[2018-07-17] MEDS: MEROPENEM 1,000 MG in NACL 0.9% 100 ML IV SCH ×3 (04:33→20:34)
[2018-07-17] MEDS: DEXTROSE 50% 50 ML SYR IVP PRN (05:35)
--- NOTE | 2018-07-17 05:35 | NUR ---
BLOOD SUGAR CHECKED 64. D50 50 ML IVP GIVE ORDERED. PT LYING IN BED, AAOX4. NO DISTRESS NOTED.
--- NOTE | 2018-07-17 06:15 | NUR ---
RECHECKED BLOOD SUGAR 172.
--- NOTE | 2018-07-17 06:45 | NUR ---
PT SLEEPING, EASILY AROUSABLE. NO S/S OF RESP DISTRESS. NO S/S OF PAIN.
[2018-07-17] MEDS: ONDANSETRON 4 MG/2 ML VIAL IVP SCH ×3 (06:48→17:25)
[2018-07-17] MEDS: BLOOD GLUCOSE MONITORING 1 DEV DEV FS SCH ×4 (06:52→21:55)
[2018-07-17] MEDS: NACL 0.9% 1,000 ML IV SCH ×2 (06:53→11:27)
--- NOTE | 2018-07-17 07:05 | NUR ---
ENDORSED PT TO DAY SHIFT NURSE. PT IN STABLE CONDITION.
--- NOTE | 2018-07-17 07:06 | NUR ---
RECEIVED REPORT FROM WELDER PIPE MAKING NURSE AT BEDSIDE FOR CONTINUITY OF CARE. PT IN BED. AAOX4. NO C/O PAIN AT THIS TIME. NO RESP DISTRESS NOTED ON ROOM AIR. PT HAS RIGHT IJ, 3 LUMENS, DRESSING CLEAN, DRY AND INTACT, INFUSING NS AT 70 ML/HR. SAFETY AND ISOLATION PRECAUTION IN PLACE. CALL LIGHT WITHIN REACH. WILL CONTINUE TO MONITOR PATIENT.
[2018-07-17 08:00] VITALS: BP 148/86
[2018-07-17] MEDS: INSULIN LANTUS 100 UNITS/ML 10 ML VIAL SUBQ SCH ×2 (09:00→17:00)
[2018-07-17] MEDS: DOCUSATE SODIUM 100 MG GELCAP PO SCH ×2 (09:00→20:34)
[2018-07-17] MEDS: CARVEDILOL 3.125 MG TAB PO SCH ×2 (09:27→20:33)
--- NOTE | 2018-07-17 09:27 | NUR ---
BLOOD SUGAR 62, NO LANTUS GIVEN. PATIENT ALSO REFUSED COLACE BECAUSE SHE STATED THAT SHE IS HAVING LOOSE BOWEL MOVEMENTS. ORDERED MEDICATIONS GIVEN. PATIENT TOLERATING IT WELL. PATIENT CURRENTLY SITTING UP ON CHAIR BY SIDE OF BED EATING BREAKFAST. WILL REASSESS PATIENT'S BLOOD SUGAR. SAFETY AND ISOLATION PRECAUTION IN PLACE, CALL LIGHT WITHIN REACH, WILL CONTINUE TO MONITOR PATIENT.
[2018-07-17] MEDS: ATORVASTATIN 20 MG TAB PO SCH (09:28)
[2018-07-17] MEDS: BENAZEPRIL 20 MG TAB PO SCH (09:28)
--- NOTE | 2018-07-17 11:38 | NUR ---
ORDERED MEDICATIONS GIVEN. PATIENT TOLERATING IT WELL. BLOOD SUGAR 82, NO COVERAGE NEEDED. PATIENT REFUSED 1200 TORADOL STATING THAT IT "DOESNT' WORK FOR ME". OFFERED PATIENT OTHER ALTERNATING PAIN RELIEVES, PATIENT STATED NO PAIN MEDICATION, WARM BLANKET FOR BACK OFFERED. PATIENT ACCEPTED. DR. ROPER IN TO SEE PATIENT. WILL WAIT FOR HIS ORDERS. SAFETY AND ISOLATION PRECAUTION IN PLACE, CALL LIGHT WITHIN REACH, WILL CONTINUE TO MONITOR PATIENT.
[2018-07-17 12:00] VITALS: BP 136/56
--- NOTE | 2018-07-17 12:33 | NUR ---
PATIENT SITTING UP IN BED EATING LUNCH, HARPREET AT BEDSIDE. SAFETY AND ISOLATION PRECAUTION IN PLACE, WILL CONTINUE TO MONITOR PATIENT.
--- NOTE | 2018-07-17 12:50 | NUR ---
LUIS, DEPARTMENT STORE GENERAL MANAGER OF [facility] [place] CALLED. REQUESTED INFORMATION ABOUT PATIENT'S DISCHARGE AND IF THAT WAS GOING TO OCCUR TODAY. UPDATED HER WITH PATIENT'S CONDITION AND STATUS TODAY. INFORMED HER THAT RN WILL SPEAK WITH DR. ROPER ABOUT POSSIBLE DISCHARGE. WILL CALL HER BACK TO UPDATE HER AT [phone]. SOSA SMIHT, VERBALIZED UNDERSTANDING.
--- NOTE | 2018-07-17 13:18 | NUR ---
PATIENT AMBULATED TO BATHROOM ON STEADY GAIT. ORDERED MEDICATION GIVEN. PATIENT TOLERATED IT WELL. SAFETY AND ISOLATION PRECAUTION IN PLACE, CALL LIGHT WITHIN REACH, WILL CONTINUE TO MONITOR PATIENT.
[2018-07-17 13:47] LABS: BASOPHILS % (AUTO) 0.4 % (0.0-2.0); EOSINOPHILS # (AUTO) 0.6 K/uL (0-0.4); EOSINOPHILS % (AUTO) 4.6 % (0.0-4.0); HEMATOCRIT 26.5 % (36-48); HEMOGLOBIN 8.9 g/dL (12.0-16.0); LYMPHOCYTES # (AUTO) 1.7 K/uL (2.5-16.5); LYMPHOCYTES % (AUTO) 13.3 % (20.5-51.1); MEAN CORPUSCULAR HEMOGLOBIN 30 pg (27-31); MEAN CORPUSCULAR HGB CONC 34 g/dL (33-37); MONOCYTES # (AUTO) 0.6 K/uL (0.8-1.0); MONOCYTES % (AUTO) 4.7 % (1.7-9.3); NEUTROPHILS # (AUTO) 9.7 K/uL (1.8-7.7); PLATELET COUNT (AUTO) 280 K/uL (140-450); RED BLOOD CELL COUNT(AUTO) 2.98 MIL/uL (4.20-5.40); RED CELL DISTRIBUTION WIDTH 14.1 % (11.6-13.7); WHITE BLOOD COUNT (AUTO) 12.5 K/uL (4.8-10.8)
[2018-07-17 13:55] LABS: ANION GAP 6.5 (8-16); CARBON DIOXIDE 24.2 mmol/L (21-32); CREATININE 1.2 mg/dL (0.6-1.3); POTASSIUM 4.7 mmol/L (3.5-5.1)
--- NOTE | 2018-07-17 14:07 | NUR ---
FAXED CONCURRENT REVIEW TO [facility] [phone] PHONE JOSE F [phone]
--- NOTE | 2018-07-17 14:17 | NUR ---
SPOKE WITH LUIS FROM [facility], . I INFORMED HER THAT THE PATIENT IS PROBABLY COMING TO HER TOMORROW FOR IV ANTIBIOTICS AND P.T. NO TPN. SHE ASKED ME TO [facility] H&P, MICROS, PT NOTES MED LIST TO HER AT [phone]., WHICH I DID.
[2018-07-17 14:59] LABS: MAGNESIUM 1.6 mg/dL (1.8-2.4); PHOSPHORUS 2.7 mg/dL (2.5-4.9)
--- NOTE | 2018-07-17 15:44 | NUR ---
CALLED LUIS AT [facility] TO UPDATE HER ON PATIENT'S PLAN OF CARE. PER MD ORDERS, PATIENT WILL BE DISCHARGED TOMORROW TO [facility]. LUIS SWAN VERBALIZED UNDERSTANDING.
[2018-07-17 16:00] VITALS: BP 104/61
--- NOTE | 2018-07-17 16:02 | NUR ---
PATIENT WANTED TO AMBULATED ON THE FLOOR. INFORMED HER THAT DUE TO HER CONTACT ISOLATION STATUS, SHE CANNOT DO SO. SHE AND HER HARPREET VERBALIZED UNDERSTANDING. WILL CONTINUE TO MONITOR PATIENT.
--- NOTE | 2018-07-17 16:16 | NUR ---
07/17/18 RD FOLLOW UP COMPLETED PLEASE REFER TO NUTRITION ASSESSMENT UNDER CARE ACTIVITY FOR ESTIMATED NUTRITIONAL NEEDS. 1. CONTINUE CCHO [address] TO FOLLOW-UP 5-7 DAYS, LOW RISK LUIS LOUIE RD
--- NOTE | 2018-07-17 17:25 | NUR ---
PATIENT SITTING IN CHAIR BY END OF BED, HARPREET AT BEDSIDE. VS WNL. ORDERED MEDICATION GIVEN. BLOOD SUGAR 128, PATIENT REFUSED LANTUS DUE TO HER RECENT LOW BLOOD SUGAR. PATIENT REFUSED SCHEDULED TORADOL. INFORMED DR. ROPER ABOUT PATIENT'S REFUSAL. SAFETY AND ISOLATION PRECAUTION IN PLACE, CALL LIGHT WITHIN REACH. WILL CONTINUE TO MONITOR PATIENT.
--- NOTE | 2018-07-17 18:35 | NUR ---
PATIENT'S MAG LEVEL 1.6. INFORMED DR. LOCK. WILL AWAIT FOR HIS ORDERS.
[2018-07-17] MEDS ORDERED: MAG SULF 2000 MG/WATER PREMIX 50 ML IV ONE (18:40)
[2018-07-17] MEDS: MAGNESIUM SULFATE 1GM in DEXTROSE 5% 100 ML PREMIX IV SCH ×2 (18:57→20:19)
--- NOTE | 2018-07-17 18:57 | NUR ---
ORDERED MEDICATION GIVEN. PATIENT TOLERATING IT WELL. PATIENT RESTING IN BED, NO SIGNS OF DISTRESS OR SOB NOTED ON ROOM AIR. SAFETY AND ISOLATION PRECAUTION IN PLACE, CALL LIGHT WITHIN REACH. WILL CONTINUE TO MONITOR PATIENT.
--- NOTE | 2018-07-17 19:18 | NUR ---
REPORT GIVEN TO CLINICAL SERVICES PROFESSIONAL NURSE AT BEDSIDE FOR CONTINUITY OF CARE. PATIENT IN STABLE CONDITION.
--- NOTE | 2018-07-17 19:20 | NUR ---
RECEIVED PT IN STABLE CONDITION FROM AM NURSE. AWAKE,ALERT AND ORIENTED X4. ON TELE MONITOR-ST. PT DENIES ANY PAIN AT THIS TIME. WITH DRESSING ON ABDOMEN. DRY AND CLEAN. IVF INFUSING WELL ON THE RT SUBCLAVIAN CENTRAL LINE. CALL LIGHT PLACED WITHIN EASY REACH . BED ON LOW POSITION. FREQUENT ROUNDS NEEDED. PLAN OF CARE DISCUSSED AND VERBALIZED UNDERSTANDING, WILL CONTINUE TO MONITOR.
[2018-07-17 19:48] VITALS: BP 139/66
[2018-07-17] MEDS: AMITRIPTYLINE 10 MG TAB PO SCH (20:33)
--- NOTE | 2018-07-17 21:55 | NUR ---
BLOOD SUGAR WAS CHECKED RESULT 133. PROVIDED WITH HS SNACK. WILL CONTINUE TO MONITOR.
--- NOTE | 2018-07-17 22:50 | NUR ---
ASSISTED UP TO THE BATHROOM. VOIDED AND HAD A SMALL LOOSE BM.
[2018-07-18 00:15] VITALS: BP_SYST 110; BP_SYST 123; BP_DIAS 71; BP_DIAS 76
--- NOTE | 2018-07-18 00:15 | NUR ---
PT DENIES ANY PAIN AT THIS TIME. WILL CONTINUE TO MONITOR.
--- NOTE | 2018-07-18 02:00 | NUR ---
MADE ROUNDS. PT ASLEEP. NO S/S OF ANY DISCOMFORT NOTED.
[2018-07-18 04:09] VITALS: BP 142/71
[2018-07-18] MEDS: MEROPENEM 1,000 MG in NACL 0.9% 100 ML IV SCH ×2 (04:25→12:23)
--- NOTE | 2018-07-18 04:30 | NUR ---
UMBILICAL DRESSING ALMOST OUT. ALL DRESSING CHANGED ,HOLLY INTACT. NO REDNESS NOR SWELLING NOTED ON THE OPERATIVE SITES.
[2018-07-18] MEDS: NACL 0.9% 1,000 ML IV SCH (05:19)
--- NOTE | 2018-07-18 06:10 | NUR ---
RT SUBCLAVIAN CENTRAL LINE DRESSING WITH OLD BLOOD FROM THE SITE AND ON UPPER AREA. DRESSING CHANGED ASEPTICALLY. PT TOLERATED WELL.
[2018-07-18] MEDS: BLOOD GLUCOSE MONITORING 1 DEV DEV FS SCH ×3 (06:19→16:30)
--- NOTE | 2018-07-18 06:19 | NUR ---
BLOOD SUGAR WAS 88 THIS AM. PT GIVEN SOME CRACKERS AND JUICE. WILL CONTINUE TO MONITOR.
[2018-07-18] MEDS: ONDANSETRON 4 MG/2 ML VIAL IVP SCH ×3 (06:45→16:30)
--- NOTE | 2018-07-18 07:32 | NUR ---
ENDORSED PT IN STABLE CONDITION TO AM NURSE FOR CONTINUITY OF CARE.
--- NOTE | 2018-07-18 07:35 | NUR ---
RECEIVED PT FROM SAP ARCHITECT NURSERICARDO, PT IS AWAKE AND LYING ON THE BED, FALL PRECAUTION INITIATED, PT IN YELLOW GOWN, ARM BANDS AND SIGN WERE PLACED. PT HAS AN CENTRAL LINE IN PLACE IN THE RT UPPER SUBCLAVIAN ARE, TRIPLE LUMEN WITH NS AT 70ML/HR, INTACT AND INFUSING WELL. PT IS IN CONTACT ISOLATION FOR ESBL OF URINE AND E. COLI. SIDE RAILS ARE UP AND CALL LIGHT WITHIN REACH. NO SIGN OF DISTRESS NOTED AND PT DENIES PAIN AT THIS TIME. WILL CONTINUE TO MONITOR PT.
--- NOTE | 2018-07-18 07:50 | NUR ---
PT IS AWAKE AND VITAL SIGNS TAKEN AND IS STABLE, NO SIGN OF DISTRESS NOTED AND WILL CONTINUE TO MONITOR.
[2018-07-18 08:00] VITALS: BP 140/69
[2018-07-18 08:14] LABS: BASOPHILS # (AUTO) 0.1 K/uL (0.00-0.22); BASOPHILS % (AUTO) 0.5 % (0.0-2.0); EOSINOPHILS # (AUTO) 0.7 K/uL (0-0.4); HEMATOCRIT 24.7 % (36-48); HEMOGLOBIN 8.2 g/dL (12.0-16.0); LYMPHOCYTES % (AUTO) 15.3 % (20.5-51.1); MEAN CORPUSCULAR HEMOGLOBIN 30 pg (27-31); MEAN CORPUSCULAR HGB CONC 33 g/dL (33-37); MEAN CORPUSCULAR VOLUME 89.4 fL (80-94); MONOCYTES # (AUTO) 0.7 K/uL (0.8-1.0); MONOCYTES % (AUTO) 5.2 % (1.7-9.3); NEUTROPHILS # (AUTO) 9.7 K/uL (1.8-7.7); PLATELET COUNT (AUTO) 273 K/uL (140-450); RED BLOOD CELL COUNT(AUTO) 2.76 MIL/uL (4.20-5.40); RED CELL DISTRIBUTION WIDTH 13.9 % (11.6-13.7); WHITE BLOOD COUNT (AUTO) 13.1 K/uL (4.8-10.8)
[2018-07-18] MEDS ORDERED: ASCO1CAP75 PO (08:21)
[2018-07-18] MEDS ORDERED: BENA20TA PO (08:21)
[2018-07-18] MEDS ORDERED: DOCU-299 PO (08:21)
[2018-07-18] MEDS ORDERED: ELA10 PO (08:21)
[2018-07-18] MEDS ORDERED: MERO500P2 IV (08:22)
[2018-07-18] MEDS: CARVEDILOL 3.125 MG TAB PO SCH (08:31)
[2018-07-18] MEDS: ATORVASTATIN 20 MG TAB PO SCH (08:32)
[2018-07-18] MEDS: BENAZEPRIL 20 MG TAB PO SCH (08:33)
[2018-07-18] MEDS: DOCUSATE SODIUM 100 MG GELCAP PO SCH (08:34)
[2018-07-18 08:46] LABS: ANION GAP 10.5 (8-16); CARBON DIOXIDE 22.7 mmol/L (21-32); CREATININE 1.1 mg/dL (0.6-1.3); POTASSIUM 4.2 mmol/L (3.5-5.1)
[2018-07-18] MEDS ORDERED: LANTUS SC (08:54)
[2018-07-18 09:00] LABS: MAGNESIUM 2.1 mg/dL (1.8-2.4)
--- NOTE | 2018-07-18 11:09 | NUR ---
FAXED CONCURRENT REVIEW AND DISCHARGE SUMMARY TO [facility] [phone] PHONE [phone] I CALLED JOSE F AT [facility] AND INFORMED HER THAT I HAVE A DISCHARGE ORDER FOR THIS PATIENT. SHE WILL GET THE AUTH FOR THE [facility] AND FOR TRANSPORT. I CALLED [facility] AND SPOKE WITH AJ BARNES. SHE SAID THE PATIENT CAN GO TO ROOM [address] GAND[address]. CALL REPORT TO [phone]. I INFORMED HARLEY SWAN
--- NOTE | 2018-07-18 11:17 | NUR ---
JAMMIE FROM CASE MANAGEMENT CALLED AND REPORTED THAT THE PT WILL BE TRANSFERRED TO [facility], [address] AND UNDER THE SERVICE OF DR. GANDARA.
[2018-07-18 12:00] VITALS: BP 121/60
--- NOTE | 2018-07-18 12:03 | NUR ---
RECEIVED A CALL FROM JOSE F FROM [facility]. SHE SAID SHE SENT THE AUTH FOR [facility] TO THEM. THE AUTH FOR [facility] IS [id number]. I CALLED AND SET UP TRANSPORT FOR 2:30P.Chu SOUZA RN AWARE.
--- NOTE | 2018-07-18 12:15 | NUR ---
INFORMED THE PT AND FAMILY ABOUT THE TRANSFER OF THE PT TO [facility] WITH THE USE OF AN TRAFFIC SIGNAL MECHANIC, JLUIS, HEAD LOFT WORKER NO. [id number] AND PT VERBALIZED UNDERSTANDING.
--- NOTE | 2018-07-18 13:24 | NUR ---
CALLED [facility] AND GAVE REPORT TO AJ BARNES REGARDING THE PT. PT WILL BE PLACED IN ROOM 4 AND WILL BE UNDER THE SERVICE OF DR. GANDARA.
--- NOTE | 2018-07-18 14:15 | NUR ---
GAVE DISCHARGED INSTRUCTIONS AND TEACHINGS TO THE PT WITH THE USE OF AN STONE BREAKER, GIOVANNI, HOME HEALTH OCCUPATIONAL THERAPIST NO. [id number], AND PT VERBALIZED UNDERSTANDING.
--- NOTE | 2018-07-18 14:45 | NUR ---
PT'S SURGICAL INCISIONS WAS CHECKED AND PICTURES WERE TAKEN, NEW DRESSING WAS APPLIED.
--- NOTE | 2018-07-18 15:35 | NUR ---
DISCHARGED PT VIA GURNEY WITH [facility] ACCOMPANIED BY THE AND FRIEND. CENTRAL LINE IN PLACE. DISCHARGED INSTRUCTIONS AND TEACHINGS GIVEN AND PT VERBALIZED UNDERSTANDING. ARM BANDS REMOVED. PT IS STABLE AT THIS TIME.
[2018-07-18] MEDS ORDERED: INSULIN LANTUS 100 UNITS/ML 10 ML VIAL SUBQ SCH (17:00)
== END 2018-07-18 15:35 | DRG 710 ==
LOC: MED 22:18 → MTU 07-09 05:37
PROVIDERS: ADMIT Family Medicine; ATTEND Family Medicine
PROC: 0DB68ZX Excision of Stomach, Via Natural or Artificial Opening Endoscopic, Diagnostic (ICD-10-PCS; 2018-07-12)
PROC: 0FT44ZZ Resection of Gallbladder, Percutaneous Endoscopic Approach (ICD-10-PCS; principal; 2018-07-15 08:00)
PROC: 30233N1 Transfusion of Nonautologous Red Blood Cells into Peripheral Vein, Percutaneous Approach (ICD-10-PCS; 2018-07-16)
DX: A41.51 Sepsis due to Escherichia coli [E. coli] (principal); N17.0 Acute kidney failure with tubular necrosis; I50.43 Acute on chronic combined systolic (congestive) and diastolic (congestive) heart failure; E43 Unspecified severe protein-calorie malnutrition; E11.65 Type 2 diabetes mellitus with hyperglycemia; K80.10 Calculus of gallbladder with chronic cholecystitis without obstruction; E83.42 Hypomagnesemia; E86.0 Dehydration; N13.30 Unspecified hydronephrosis; N30.91 Cystitis, unspecified with hematuria; D50.0 Iron deficiency anemia secondary to blood loss (chronic); K52.9 Noninfective gastroenteritis and colitis, unspecified; E78.5 Hyperlipidemia, unspecified; D63.8 Anemia in other chronic diseases classified elsewhere; I16.1 Hypertensive emergency; R91.1 Solitary pulmonary nodule; E87.6 Hypokalemia; E83.51 Hypocalcemia; J98.11 Atelectasis; F17.210 Nicotine dependence, cigarettes, uncomplicated; F32.1 Major depressive disorder, single episode, moderate; I11.0 Hypertensive heart disease with heart failure; Z79.4 Long term (current) use of insulin; Z87.11 Personal history of peptic ulcer disease; Z88.0 Allergy status to penicillin; Z90.49 Acquired absence of other specified parts of digestive tract; Z90.710 Acquired absence of both cervix and uterus; Z88.6 Allergy status to analgesic agent; Z88.5 Allergy status to narcotic agent; Z79.82 Long term (current) use of aspirin; Z79.899 Other long term (current) drug therapy; Z68.24 Body mass index [BMI] 24.0-24.9, adult
CPT/HCPCS: 36415; 70450; 71045; 71250; 76705; 78445; 80048; 80053; 81001; 82140; 82150; 82272; 82948; 83036; 83605; 83690; 83735; 83880; 84100; 84132; 84439; 84443; 84484; 85025; 86677; 86886; 86900; 86901; 86920; 87040; 87081; 87086; 87186; 93005; 96361; 96365; 96372; 96375; 97110; 97116; 97161-GP; 97164; 97530; 99285; A9153; C1758; C9113; J0330; J0696; J1100; J1170; J1200; J1642; J1644; J1815; J1885; J1940; J2001; J2060; J2185; J2250; J2270; J2354; J2370; J2405; J2550; J2704; J2765; J2997; J3010; J3370; J3475; J3480; J3490; J7030; J7060; P9016; Q0092

== ENCOUNTER 2018-08-13 03:10 | Inpatient (IN) | payer OTHER ==
[~2018-08-13] VITALS: Ht 142.2 cm; Wt 39.5 kg
[~2018-08-13 03:10] MED LIST changes: +DOCU-299 PO; +ELA10 PO; -LEVO750T2 PO; +MERO500P2 IV
--- NOTE | 2018-08-13 03:18 | NUR ---
PT WAS TAKEN TO BED 07 BY WHEELCHAIR.
[2018-08-13 03:20] VITALS: BP 139/72
[2018-08-13] MEDS ORDERED: NACL 0.9% 1,000 ML IV ONE ×2 (03:20→05:25)
[2018-08-13] MEDS ORDERED: ONDANSETRON 4 MG/2 ML VIAL IVP ONE (03:20)
[2018-08-13] MEDS ORDERED: MORPHINE SULFATE 4 MG/ML SYR IVP ONE (03:20)
[2018-08-13] MEDS ORDERED: diphenhydrAMINE 50 MG/ML VIAL IVP ONE (04:00)
[2018-08-13] MEDS ORDERED: METOCLOPRAMIDE 10 MG/2 ML INJ VIAL IVP ONE (04:00)
--- NOTE | 2018-08-13 04:00 | NUR ---
PT BIB FOR N/V FOR 2 DAYS. PT IS VOMITING DARK BROWN EMESIS. ABD IS FLAT, SOFT, NON TENDER, ACTIVE BS X4. PT HAD GALL BALDDER REMOVAL LAST MONTH, SURGICAL SITE NOTED TO CENTER OF ABD, HEALING ADEQUATELY, NO REDNESS OR D/C NOTED, EDGES WELL APPROXIMATED. PT IS PALE, COOL AND CLAMMY . PT IS AWAKE AND ANSWERING QUESTIONS APPROPRIATELY, AT BEDSIDE. PMH DM
--- NOTE | 2018-08-13 04:08 | NUR ---
Dr. Parks evaluating patient at bedside.
--- NOTE | 2018-08-13 05:00 | NUR ---
PT STILL VOMITING, ER MD MADE AWARE.
--- NOTE | 2018-08-13 05:16 | NUR ---
PT TAKEN TO CT
[2018-08-13] MEDS ORDERED: LEVOFLOXACIN 750 MG/D5W PREMIX 150 ML IV ONE (05:25)
[2018-08-13] MEDS ORDERED: PANTOPRAZOLE 40 MG INJ VIAL IVP ONE (05:25)
[2018-08-13] MEDS ORDERED: metroNIDAZOLE 500 MG/NS PREMIX 100 ML IV ONE (05:25)
[2018-08-13 05:30] LABS: HEMOGLOBIN 8.7 g/dL (12.0-16.0); MEAN CORPUSCULAR VOLUME 91.9 fL (80-94)
--- NOTE | 2018-08-13 05:30 | NUR ---
PT RETURNED FROM CT
[2018-08-13 05:39] LABS: HEMATOCRIT 27.3 % (36-48); MEAN CORPUSCULAR HEMOGLOBIN 30 pg (27-31); MEAN CORPUSCULAR HGB CONC 32 g/dL (33-37); PLATELET COUNT (AUTO) 441 K/uL (140-450); RED BLOOD CELL COUNT(AUTO) 2.97 MIL/uL (4.20-5.40); RED CELL DISTRIBUTION WIDTH 14.7 % (11.6-13.7)
[2018-08-13 05:50] LABS: PROTHROMBIN TIME 9.9 secs (10.8-13.4)
[2018-08-13 05:57] LABS: CARBON DIOXIDE 14.9 mmol/L (21-32); CREATININE 3.1 mg/dL (0.6-1.3); POTASSIUM 3.9 mmol/L (3.5-5.1)
[2018-08-13 06:02] LABS: ALBUMIN 1.7 g/dL (3.4-5.0); TOTAL BILIRUBIN 0.2 mg/dL (0.0-1.0)
[2018-08-13 06:04] LABS: WHITE BLOOD COUNT (AUTO) 40.4 K/uL (4.8-10.8)
[2018-08-13 06:10] LABS: LYMPHOCYTES % (MANUAL) 1 % (20-46)
[2018-08-13] MEDS ORDERED: VANCOMYCIN 500 MG VIAL PO STA (06:11)
--- NOTE | 2018-08-13 06:15 | NUR ---
PT LEAVING TO GO HOME, PHONE NUMBER IS [phone].
[2018-08-13] MEDS ORDERED: PROMETHAZINE 25 MG/ML VIAL IVP ONE (06:30)
--- NOTE | 2018-08-13 06:32 | NUR ---
PO VANCO NOT AVAILABLE IN ER PYXIS, ER MADE AWARE, WILL WAIT FOR AM PHARMACY TO PROVIDE MED.
--- NOTE | 2018-08-13 06:58 | NUR ---
NO VOMITING NOTED AT THIS TIME, VSS, COMFORT NEEDS MET AT THIS TIME, WILL CONTINUE TO MONITOR.
--- NOTE | 2018-08-13 07:07 | NUR ---
REPORT GIVEN TO SOSA RANDOLPH, TRANSFER OF CARE AT THIS TIME.
--- NOTE | 2018-08-13 07:10 | NUR ---
RECEIVED REPORT FROM PRESTON SWAN FOR CONTINUITY OF CARE
[2018-08-13 07:37] LABS: APPEARANCE,URINE SL CLOUDY (CLEAR); BILIRUBIN,URINE NEGATIVE (NEGATIVE); BLOOD, URINE TRACE-I (NEGATIVE); COLOR,URINE YELLOW (YELLOW); LEUKOCYTE ESTERASE ,URINE 1+ (NEGATIVE); NITRITE, URINE NEGATIVE (NEGATIVE); UGLUCOSE NEGATIVE (NEGATIVE)
[2018-08-13 08:00] LABS: RBC,URINE 0-5 (RARE) /HPF (0-5)
[2018-08-13 08:01] LABS: WBC,URINE 80-100 /HPF (0-5)
--- NOTE | 2018-08-13 08:10 | NUR ---
Patient will be admitted to care of DR VINCENT. Admited to TELE. Will go to room 113. Belongings list completed. Report to FLAKITA SWAN .
--- NOTE | 2018-08-13 08:10 | NUR ---
ENDOURSED PO MEDICATION TO FLAKITA SWAN UNABLE TO ADMINISTER PO MED DUE TO PATIENT VOMITING.
[2018-08-13 08:20] VITALS: BP 162/75
--- NOTE | 2018-08-13 08:20 | NUR ---
RECEIVED BEDSIDE REPORT FROM ER NURSE. PATIENT IS AWAKE, ALERT AND ORIENTEDX4. NO SIGNS OF DISTRESS ON ROOM AIR. IV ON R AC 20G SALINE LOCK, CLEAN, DRY AND INTACT. L EJ IS CLEAN, DRY AND INTACT. SALINE LOCK. ALLERGY BAND IN PLACE. FALL RISK PROTOCOL. CONTACT PRECAUTIONS. MRSA OF THE NARES DONE. ANSWERED ALL ADMIT QUESTIONS AT THIS TIME. VOMIT BAG GIVEN. TELE MONITOR IN PLACE. ALL BELONGINGS GIVEN TO HER IN ER. BED IN LOW POSITION. CALL LIGHT WITHIN REACH
[2018-08-13] MEDS ORDERED: NACL 0.9% 1,000 ML IV SCH (08:55)
[2018-08-13] MEDS ORDERED: DEXTROSE 50% 50 ML SYR IVP PRN ×2 (08:55)
--- NOTE | 2018-08-13 08:59 | NUR ---
PATIENT HAS BEEN SCREENED AND CATEGORIZED HIGH NUTRITION RISK. PATIENT WILL BE SEEN WITHIN 1-2 DAYS OF ADMISSION. 08/14/18 08/15/18 Taurus Winkler MBA, RD
[2018-08-13 09:48] LABS: BARBITURATE, URINE NEG. ng/ml (NEG <=200); BENZODIAZEPINE, URINE NEG. ng/mL (NEG <=200); CANNABINOID, URINE NEG. ng/mL (NEG <=50); COCAINE, URINE NEG. ng/mL (NEG <=300); OPIATE, URINE NEG. ng/mL (NEG <=2000); PHENCYCLIDINE SCREEN,URINE NEG. ng/mL (NEG <=25)
--- NOTE | 2018-08-13 10:00 | NUR ---
NS IV BOLUS GIVEN. BED IN LOW POSITION, WILL CONTINUE TO MONITOR THE PATIENT
[2018-08-13 10:08] LABS: CHOL/HDL RATIO 4.6 (1-4.5); MAGNESIUM 1.9 mg/dL (1.8-2.4)
[2018-08-13 10:10] LABS: PHOSPHORUS 10.1 mg/dL (2.5-4.9)
[2018-08-13] MEDS: METOCLOPRAMIDE 10 MG/2 ML INJ VIAL IVP PRN (10:27)
--- NOTE | 2018-08-13 10:33 | NUR ---
ADMINISTERED ANTIBIOTICS. IV IS CLEAN, DRY AND INTACT. ALSO ADMINISTER PRN ANTINAUSEA MED. PATIENT IS DRY HEAVING. BED IN LOW POSITION. CALL LIGHT WITHIN REACH. WILL CONTINUE TO MONITOR THE PATIENT
[2018-08-13] MEDS: BLOOD GLUCOSE MONITORING 1 DEV DEV FS SCH ×3 (11:30→20:23)
[2018-08-13] MEDS: ONDANSETRON 4 MG/2 ML VIAL IVP PRN (11:41)
--- NOTE | 2018-08-13 11:45 | NUR ---
ADMINISTERED PRN ANTINAUSEA MEDS. PATIENT STILL VOMITTING. DR IS AWARE. WILL CONTINUE TO MONITOR THE PATIENT. BED IN LOW POSITION. CALL LIGHT WITHIN REACH
[2018-08-13 12:00] VITALS: BP 176/81
[2018-08-13] MEDS: PROMETHAZINE 25 MG/ML VIAL IM PRN ×2 (13:15→23:08)
[2018-08-13] MEDS: metroNIDAZOLE 500 MG/NS PREMIX 100 ML IV SCH ×2 (13:17→20:28)
[2018-08-13] MEDS: DEXT 5% /NACL 0.9% 1,000 ML IV SCH ×2 (13:21→21:37)
[2018-08-13] MEDS: INSULIN LISPRO SLIDING SCALE 100 UNITS/ML VIAL SUBQ PRN ×3 (13:31→20:22)
--- NOTE | 2018-08-13 13:31 | NUR ---
ADMINISTERED PRN ANTI NAUSEA MEDS. PATIENT TOLERATED WELL. WILL CONTINUE TO MONITOR THE PATIENT. IV IS CLEAN, DRY AND INTACT.
[2018-08-13] MEDS ORDERED: LORazepam 2 MG/ML VIAL IM/IVP SCH (14:00)
--- NOTE | 2018-08-13 14:29 | NUR ---
PATIENT IS ANXIOUS AND REQUESTS MEDS TO HELP HER RELAX. DR SCHULTZ ORDERED ATIVAN. PATIENT TOLERATED WELL. WILL CONTINUE TO MONITOR THE PATIENT
[2018-08-13 16:00] VITALS: BP 114/56
--- NOTE | 2018-08-13 16:57 | NUR ---
PATIENT IS SLEEPING. NO SIGNS OF DISTRESS ON ROOM AIR. WILL CONTINUE TO MONITOR THE PATIENT
--- NOTE | 2018-08-13 18:00 | NUR ---
PATIENT IS ATTEMPTING TO EAT BRAT DIET. SHE SAID JUICE AND POPSICLES IS WHAT HELPS HER W HER NAUSEA. WILL CONTINUE TO MONITOR THE PATIENT.
--- NOTE | 2018-08-13 19:10 | NUR ---
GAVE BEDSIDE REPORT TO RFID SPECIALIST NURSE. ENDORSED PATIENT IN STABLE CONDITION
--- NOTE | 2018-08-13 19:11 | NUR ---
RECEIVED REPORT FROM DAY SHIFT RN, FOR CONTINUITY OF CARE. PT IS A/OX4, ON ROOM AIR, COMORAN SPEAKING. PT IS ABLE TO MAKE NEEDS KNOWN, ABLE TO FOLLOW COMMANDS. PT BREATHS EQUAL AND UNLABORED. PT HAS SKIN IS INTACT. PT AMBULATES WITH ASSIST. PT HAS A 20G IV TO RIGHT HAND, ASYMPTOMATIC INFUSING D5NS AT 80ML/HR, AND A 20G IV TO LEFT EJ, SALINE LOCKED AND ASYMPTOMATIC. DISCUSSED PLAN OF CARE WITH PT, PT VERBALIZED UNDERSTANDING. VITAL SIGNS WITHIN NORMAL LIMITS. PT STABLE, NO SIGNS OF DISTRESS NOTED AT THIS TIME. BED IN LOWEST POSITION, BED ALARM ON. CALL LIGHT WITHIN REACH, WILL CONTINUE TO MONITOR.
[2018-08-13 20:00] VITALS: BP 125/62
[2018-08-13] MEDS: INSULIN LANTUS 100 UNITS/ML 10 ML VIAL SUBQ SCH (20:22)
[2018-08-13] MEDS: SIMVASTATIN 20 MG TAB PO SCH (20:27)
[2018-08-13] MEDS: CARVEDILOL 3.125 MG TAB PO SCH (20:28)
--- NOTE | 2018-08-13 20:31 | NUR ---
ADMINISTERED SCHEDULED MEDICATIONS, PLUS 2 UNITS OF HUMALOG INSULIN COVERAGE FOR BLOOD SUGAR OF 200. PT TOLERATED WELL. NO PROBLEMS NOTED WHILE SWALLOWING.
[2018-08-13] MEDS ORDERED: AMITRIPTYLINE 10 MG TAB PO SCH (21:00)
--- NOTE | 2018-08-13 23:08 | NUR ---
PT REQUESTED NAUSEA MEDICATION, PULLED OUT REGLAN AND PT REFUSED IT. PT STATES REGLAN DID NOT HELP AND SHE WANTS PHENERGAN. RETURNED REGLAN TO [facility] AND ADMINISTERED PHENERGAN TO PT VIA IM. PT TOLERATED WELL.
[2018-08-14] VITALS: BP 148/112
--- NOTE | 2018-08-14 | NUR ---
PT REQUESTED NAUSEA MEDICATION AGAIN, EXPLAINEDI HAD JUST GIVEN HER NAUSEA MEDICATION, PT STATES MEDICATION NOT WORKING AND THAT SHE KNOWS IT WILL NOT AND THAT SHE NEEDS ANOTHER ONE. PULLED REGLAN OUT AGAIN, PT AGREED TO TRY IT. ADMINISTERED REGLAN AND PT TOLERATED WELL.
--- NOTE | 2018-08-14 00:15 | NUR ---
BLOOD PRESSURE SLIGHTLY ELEVATED, VITAL SIGNS WITHIN NORMAL LIMITS. PT STABLE, NO SIGNS OF DISTRESS NOTED AT THIS TIME. BED IN LOWEST POSITION, BED ALARM ON. CALL LIGHT WITHIN REACH, WILL CONTINUE TO MONITOR.
[2018-08-14] MEDS ORDERED: LORazepam 2 MG/ML VIAL IVP SCH (02:00)
[2018-08-14 04:00] VITALS: BP 153/65
--- NOTE | 2018-08-14 04:00 | NUR ---
VITAL SIGNS WITHIN NORMAL LIMITS. PT STABLE, NO SIGNS OF DISTRESS NOTED AT THIS TIME. BED IN LOWEST POSITION, BED ALARM ON. CALL LIGHT WITHIN REACH, WILL CONTINUE TO MONITOR.
[2018-08-14] MEDS: metroNIDAZOLE 500 MG/NS PREMIX 100 ML IV SCH ×3 (05:20→21:26)
[2018-08-14] MEDS: ACETAMINOPHEN 325 MG TAB PO PRN (05:47)
--- NOTE | 2018-08-14 05:47 | NUR ---
PT STATES SHE HAS WYATT AND REQUESTED TYLENOL.
[2018-08-14] MEDS: INSULIN LISPRO SLIDING SCALE 100 UNITS/ML VIAL SUBQ PRN ×4 (06:50→21:34)
[2018-08-14] MEDS: BLOOD GLUCOSE MONITORING 1 DEV DEV FS SCH ×4 (06:51→21:26)
--- NOTE | 2018-08-14 07:32 | NUR ---
ENDORSED PT TO DAY SHIFT RN FOR CONTINUITY OF CARE, PT IN STABLE CONDITION.
--- NOTE | 2018-08-14 07:33 | NUR ---
RECEIVED REPORT FROM TECHNOLOGY SALES CONSULTANT NURSE AT BEDSIDE FOR CONTINUITY OF CARE. PT IS A/OX4, ON ROOM AIR, LIBERIAN SPEAKING, CAN SPEAK SOME KYRGYZ. PT IS ABLE TO MAKE NEEDS KNOWN, ABLE TO FOLLOW COMMANDS. RESPIRATIONS EVEN AND UNLABORED ON ROOM AIR. SKIN IS INTACT. PT AMBULATES WITH ASSIST. PT HAS 20G IV TO LEFT EJ, PATENT, INTACT, AND ASYMPTOMATIC INFUSING IVF WELL. DISCUSSED PLAN OF CARE WITH PT, PT VERBALIZED UNDERSTANDING. PATIENT DRY HEAVING BUT NO EMESIS AT THE MOMENT. SAFETY AND ISOLATION PRECAUTION IN PLACE, BED IN LOWEST POSITION, BED ALARM ON. CALL LIGHT WITHIN REACH, WILL CONTINUE TO MONITOR PATIENT.
--- NOTE | 2018-08-14 07:42 | NUR ---
PT REQUESTED ATIVAN AGAIN, SHE STATES IT IS THE ONLY THING THAT HELPS AND THAT SHE IS FEELING ANXIOUS. SPOKE TO DR LAY AND SHE ORDERED ATIVAN ONCE. ADMINISTERED ATIVAN, PT TOLERATED WELL.
[2018-08-14 08:00] VITALS: BP 180/88
[2018-08-14] MEDS: ONDANSETRON 4 MG/2 ML VIAL IVP PRN ×2 (08:55→21:28)
[2018-08-14] MEDS: CALCIUM ACETATE 667 MG TAB PO SCH ×2 (09:04→16:54)
[2018-08-14] MEDS: BENAZEPRIL 20 MG TAB PO SCH (09:04)
[2018-08-14] MEDS: CARVEDILOL 3.125 MG TAB PO SCH ×2 (09:04→21:40)
[2018-08-14] MEDS: ASPIRIN 81 MG TAB.CHEW PO SCH (09:04)
[2018-08-14] MEDS: FUROSEMIDE 20 MG TAB PO SCH (09:05)
--- NOTE | 2018-08-14 09:15 | NUR ---
PATIENT VOMITING CLEAR LIQUID EMESIS. ZOFRAN PRN GIVEN. BP 180/88 HR 114. ORDERED MEDICATIONS GIVEN. PATIENT TOLERATING THEM AND TRYING TO HOLD DOWN MEDICATION. WILL REASSESS BLOOD PRESSURE. WILL CONTINUE TO MONITOR PATIENT.
[2018-08-14] MEDS: DEXT 5% /NACL 0.9% 1,000 ML IV SCH (09:16)
--- NOTE | 2018-08-14 09:21 | NUR ---
DR. DIGGS IN TO SEE THE PATIENT. WILL WAIT FOR HER EVALUATION.
--- NOTE | 2018-08-14 09:36 | NUR ---
CM NOTE CALLED CHUCKY FROM [facility] [phone] WHO STATED THAT THIS PATIENT IS REGAL, [facility] IS FULL RISK, FOR ANY DC NEEDS TO CONTACT [facility] AND FAX REVIEW TO THEM NOT TO [facility]. CHUCKY ALSO SAID THAT THE ASSIGNED CM IS JOSE F. FAXED INITIAL REVIEW TO [facility] [phone] JOSE F # [phone].
[2018-08-14] MEDS ORDERED: SCOPOLAMINE 1.5 MG/72 HR PATCH TD SCH (10:10)
--- NOTE | 2018-08-14 10:20 | NUR ---
BP REASSESSED AT 189/[address] DIGGS AWARE. WILL WAIT FOR NEW ORDERS. PATIENT RESTING IN BED, STILL VOMITING CLEAR LIQUID EMESIS.
[2018-08-14 10:22] LABS: HEMATOCRIT 25.8 % (36-48); HEMOGLOBIN 8.4 g/dL (12.0-16.0); MEAN CORPUSCULAR HEMOGLOBIN 30 pg (27-31); MEAN CORPUSCULAR HGB CONC 33 g/dL (33-37); MEAN CORPUSCULAR VOLUME 91.4 fL (80-94); PLATELET COUNT (AUTO) 406 K/uL (140-450); RED BLOOD CELL COUNT(AUTO) 2.82 MIL/uL (4.20-5.40); RED CELL DISTRIBUTION WIDTH 14.5 % (11.6-13.7)
[2018-08-14] MEDS ORDERED: LORazepam 2 MG/ML VIAL IM/IVP SCH (10:30)
[2018-08-14 10:32] LABS: ANION GAP 14.7 (8-16); CARBON DIOXIDE 18.6 mmol/L (21-32); CREATININE 1.9 mg/dL (0.6-1.3); POTASSIUM 3.3 mmol/L (3.5-5.1)
[2018-08-14] MEDS: hydrALAZINE 20 MG/ML VIAL IVP PRN ×2 (10:43→21:41)
--- NOTE | 2018-08-14 10:43 | NUR ---
ORDERED MEDICATION GIVEN. PATIENT TOLERATING IT. NO SIGNS OF DISTRESS NOTED AT THIS TIME. PATIENT VOMITING CLEAR FLUID EMESIS. WILL REASSESS AND CONTINUE TO MONITOR PATIENT.
[2018-08-14 10:45] LABS: FREE T4 (FREE THYROXINE) 1.29 ng/dL (0.76-1.46); THYROID STIMULATING HORMONE 5.71 uIU/mL (0.34-3.74)
[2018-08-14] MEDS: SCOPOLAMINE 1.5 MG/72 HR PATCH TD SCH (10:47)
[2018-08-14 11:12] LABS: WHITE BLOOD COUNT (AUTO) 31.9 K/uL (4.8-10.8)
[2018-08-14 11:13] LABS: LYMPHOCYTES % (MANUAL) 4 % (20-46); MONOCYTES % (MANUAL) 2 % (5-12)
[2018-08-14 11:20] LABS: MAGNESIUM 1.6 mg/dL (1.8-2.4); PHOSPHORUS 4.2 mg/dL (2.5-4.9)
[2018-08-14 11:50] VITALS: BP 148/66
--- NOTE | 2018-08-14 11:50 | NUR ---
BP 148/66 HR 110. PATIENT RESTING IN BED, NO SIGNS OF DISTRESS OR DISCOMFORT NOTED. NO C/O NAUSEA OR VOMITING. DR. DIGGS AWARE, ALSO INFORMED HER ABOUT PATIENT'S MAG OF 1.6 AND K OF 3.3. WILL WAIT FOR ORDERS. WILL CONTINUE TO MONITOR PATIENT.
--- NOTE | 2018-08-14 12:53 | NUR ---
BLOOD SUGAR 214, COVERAGE GIVEN. IVPB ANTIBIOTICS GIVEN. PATIENT SITTING UP IN BED RESTING, NO C/O OF VOMITING OR NAUSEA AT THIS TIME. WILL CONTINUE TO MONITOR PATIENT.
--- NOTE | 2018-08-14 13:30 | NUR ---
PATIENT HAD LOOSE BOWEL MOVEMENT. PATIENT CLEANED AND CHANGED. SPECIMEN COLLECTED FOR CDIFF TEST. HOGSHEAD STRIPPER STATED THAT SPECIMEN CANNOT BE TESTED BECAUSE IT IS NOT [place]AT[place], SPECIMEN WAS LOOSE BUT STICKY. RN VERBALIZED UNDERSTANDING. DR. DIGGS AND STRAIGHT LINE PRESS SETTER KIM AWARE ABOUT REJECTED SAMPLE. WILL CONTINUE TO MONITOR PATENT.
[2018-08-14] MEDS: SODIUM BICARBONATE 8.4% 50 MEQ in DEXT 5% / NACL 0.45% 1,000 ML IV SCH (13:57)
--- NOTE | 2018-08-14 13:57 | NUR ---
ORDERED MEDICATION GIVEN. PATIENT TOLERATING IT. PATIENT C/O OF NAUSEA AND HAS SOME VOMITING. WILL CONTINUE TO MONITOR PATIENT.
--- NOTE | 2018-08-14 14:24 | NUR ---
08/14/18 RD INITIAL ASSESSMENT COMPLETED PLEASE REFER TO NUTRITION ASSESSMENT UNDER CARE ACTIVITY FOR ESTIMATED NUTRITIONAL NEEDS. 1. CONTINUE NPO MEDICALLY APPROPRIATE 2. WHEN PATIENT IS MEDICALLY STABLE CON[facility] 3. PROVIDE EDUCATION ABOUT COLITIS ON FOLLOW UP VISIT 4. RD TO FOLLOW-UP 2-3 DAYS, HIGH RISK [address] RD
[2018-08-14] MEDS ORDERED: POTASSIUM CHLORIDE 20% 40 MEQ/15 ML UDC PO SCH (15:00)
[2018-08-14] MEDS ORDERED: MAGNESIUM OXIDE 400 MG TAB PO SCH (15:11)
--- NOTE | 2018-08-14 15:45 | NUR ---
DR MATUTE IN TO SEE THE PATIENT. WILL WAIT FOR HIS EVALUATION AND ORDERS.
[2018-08-14 16:00] VITALS: BP 174/105
[2018-08-14] MEDS ORDERED: MAGNESIUM CITRATE 300 ML BTL PO SCH (16:17)
[2018-08-14] MEDS: METOCLOPRAMIDE 10 MG/2 ML INJ VIAL IVP PRN ×2 (16:24)
--- NOTE | 2018-08-14 16:33 | NUR ---
BLOOD SUGAR 168, COVERAGE GIVEN. PATIENT TOLERATED IT. PATIENT NAUSEATED AND VOMITING, PRN REGLAN IVP GIVEN. PATIENT TOLERATED IT. SAFETY AND ISOLATION PRECAUTION IN PLACE, CALL LIGHT WITHIN REACH, WILL CONTINUE TO MONITOR APTIENT.
[2018-08-14 16:38] LABS: HEMOGLOBIN 8.1 g/dL (12.0-16.0); MEAN CORPUSCULAR HEMOGLOBIN 30 pg (27-31); MEAN CORPUSCULAR HGB CONC 33 g/dL (33-37); MEAN CORPUSCULAR VOLUME 90.7 fL (80-94); PLATELET COUNT (AUTO) 374 K/uL (140-450); RED BLOOD CELL COUNT(AUTO) 2.75 MIL/uL (4.20-5.40); RED CELL DISTRIBUTION WIDTH 14.8 % (11.6-13.7); WHITE BLOOD COUNT (AUTO) 28.8 K/uL (4.8-10.8)
[2018-08-14] MEDS: SENNA 8.6 MG TAB PO SCH (17:00)
--- NOTE | 2018-08-14 17:15 | NUR ---
ORDERED MEDICATION GIVEN. PATIENT STILL VOMITING CLEAR LIQUID EMESIS AND DRY HEAVING. CONSENT FOR COLONOSCOPY OBTAINED. REQUEST FOR PAST COLONOSCOPY FROM [facility] ALSO FAXED OVER TO THEIR MEDICAL RECORDS. WILL WAIT FOR THEIR FAX BACK. SAFETY AND ISOLATION PRECAUTION IN PLACE, CALL LIGHT WITHIN REACH, WILL CONTINUE TO MONITOR PATIENT.
--- NOTE | 2018-08-14 17:45 | NUR ---
DR DIGGS AWARE OF COLONOSCOPY WITH DR. MATUTE IN 08/15/18 AM AND PATIENT'S HIGH BLOOD PRESSURE. WILL CONTINUE TO MONITOR PATIENT.
[2018-08-14 18:04] LABS: LYMPHOCYTES % (MANUAL) 3 % (20-46); MONOCYTES % (MANUAL) 6 % (5-12)
--- NOTE | 2018-08-14 19:33 | NUR ---
REPORT GIVEN TONIGHT SHIFT NURSE AT BEDSIDE FOR CONTINUITY OF CARE. PATIENT IN STABLE CONDITION.
[2018-08-14] MEDS ORDERED: AMITRIPTYLINE 10 MG TAB PO SCH (21:00)
--- NOTE | 2018-08-14 21:30 | NUR ---
SEEN PT AWAKE, ALERT AND ORIENTED. INITIAL ASSESSMENT DONE. VITAL SIGNS CHECKED. BP:199/95. PT FEELS NAUSEOUS. WILL MEDICATE ORDERED. SAFETY REINFORCED. CONTACT PRECAUTION IN PLACED.
--- NOTE | 2018-08-14 21:30 | NUR ---
BLOOD SUGAR CHECKED:269. WILL COVER W/ INSULIN PER SLIDING SCALE. PT ABLE TO TAKE HER MEDICATION 1 PILL AT A TIME W/ APPLE JUICE. PT ABLE TO TOLERATE HER MEDICATIONS. PT SPITS CLEAR EMESIS INTERMITTENTLY. WILL CONTINUE TO MONITOR.
[2018-08-14 21:35] VITALS: BP 199/95
[2018-08-14] MEDS: INSULIN LANTUS 100 UNITS/ML 10 ML VIAL SUBQ SCH (21:35)
--- NOTE | 2018-08-14 21:41 | NUR ---
PT GIVEN HYDRALAZINE IVP FOR CS=182/95. WILL RECHECK BP IN 15MINS PER ORDER.
[2018-08-14] MEDS: SIMVASTATIN 20 MG TAB PO SCH (21:50)
--- NOTE | 2018-08-14 22:00 | NUR ---
PT COMPLAINING OF ABDOMINAL PAIN. NO PAIN MEDICATION AVAILABLE, ONLY TYLENOL. WILL NOTIFY
--- NOTE | 2018-08-14 22:02 | NUR ---
CALLED RESIDENT'S CELLPHONE BUT NO ANSWER, LEFT MESSAGE. WILL AWAIT FOR CALL BACK.
--- NOTE | 2018-08-14 22:32 | NUR ---
NO CALL BACK FROM RESIDENT. CALLED AGAIN AND NO ANSWER, LEFT MESSAGE. WILL AWAIT FOR CALL BACK.
--- NOTE | 2018-08-14 22:50 | NUR ---
CALLED AND SPOKE TO RESIDENT AND INFORMED ABOUT PT'S ABDOMINAL PAIN. SHE SAID," GIVE EITHER PHENERGAN OR REGLAN AND IT WILL EASE THE PAIN, IF NOT TO CALL ME."
[2018-08-14] MEDS: PROMETHAZINE 25 MG/ML VIAL IM PRN (22:56)
--- NOTE | 2018-08-14 22:56 | NUR ---
PT MEDICATED W/ PHENERGAN IVP ORDERED. WILL CONTINUE TO MONITOR.
[2018-08-14] MEDS: POLYETHYLENE GLYCOL 17 GM/PKT PO SCH (22:59)
[2018-08-15] VITALS (7 sets, daily range): BP systolic 131–172; BP diastolic 65–83
--- NOTE | 2018-08-15 00:45 | NUR ---
PT CALLED ASKING FOR SLEEPING MEDICINE. INFORMED HER THERE'S NO ORDER RIGHT NOW BUT WILL CALL .
--- NOTE | 2018-08-15 00:50 | NUR ---
VITAL SIGNS CHECKED. INFORMED PT THAT MD WILL ORDER SLEEPING MEDICINE AND JUST WAITING FOR PHARMACY VERIFICATION. PT VERBALIZED UNDERSTANDING.
--- NOTE | 2018-08-15 00:53 | NUR ---
SPOKE TO RESIDENT REGARDING PT'S SLEEPING MEDICINE. RESIDENT SAID SHE'LL ORDER ONE TIME DOSE OF ATIVAN.
[2018-08-15] MEDS ORDERED: LORazepam 2 MG/ML VIAL IVP SCH (01:00)
[2018-08-15] MEDS ORDERED: SODIUM BICARBONATE 8.4% PFS 50 MEQ/50 ML SYR IVP ONE (01:32)
[2018-08-15] MEDS: SODIUM BICARBONATE 8.4% 50 MEQ in DEXT 5% / NACL 0.45% 1,000 ML IV SCH ×3 (02:32→19:00)
--- NOTE | 2018-08-15 04:40 | NUR ---
SEEN PT AWAKE, SITTING UP IN BED. VITAL SIGNS CHECKED. XZ=057/77. WILL RECHECKED BP AGAIN. PT STATES SHE'S HAVING ABDOMINAL PAIN AND FEELS NAUSEOUS. WILL MEDICATE FOR PAIN ORDERED. IVPB ANTIBIOTIC GIVEN W/ TEACHINGS. PT KEPT COMFORTABLE.
[2018-08-15] MEDS: metroNIDAZOLE 500 MG/NS PREMIX 100 ML IV SCH ×3 (04:43→21:47)
[2018-08-15] MEDS: METOCLOPRAMIDE 10 MG/2 ML INJ VIAL IVP PRN ×2 (04:49→16:35)
--- NOTE | 2018-08-15 06:00 | NUR ---
PT SLEEPING ON HER RIGHT SIDE. BLOOD SUGAR CHECKED:176. WILL COVER W/ INSULIN PER SLIDING SCALE. BP CHECKED LEFT ARM:131/65. PT KEPT COMFORTABLE.
[2018-08-15] MEDS: BLOOD GLUCOSE MONITORING 1 DEV DEV FS SCH ×4 (06:49→21:08)
[2018-08-15] MEDS: INSULIN LISPRO SLIDING SCALE 100 UNITS/ML VIAL SUBQ PRN ×2 (06:51→18:01)
[2018-08-15 07:03] LABS: HEMATOCRIT 23.4 % (36-48); HEMOGLOBIN 7.8 g/dL (12.0-16.0); MEAN CORPUSCULAR HEMOGLOBIN 30 pg (27-31); MEAN CORPUSCULAR HGB CONC 34 g/dL (33-37); MEAN CORPUSCULAR VOLUME 90.6 fL (80-94); PLATELET COUNT (AUTO) 347 K/uL (140-450); RED BLOOD CELL COUNT(AUTO) 2.58 MIL/uL (4.20-5.40); RED CELL DISTRIBUTION WIDTH 14.4 % (11.6-13.7)
--- NOTE | 2018-08-15 07:15 | NUR ---
BEDSIDE REPORT GIVEN TO DAYSHIFT NURSE.
--- NOTE | 2018-08-15 07:16 | NUR ---
RECEIVED REPORT FROM DIESEL ENGINE PIPE FITTER NURSE AT BEDSIDE FOR CONTINUITY OF CARE. PT IS A/OX4, ON ROOM AIR, MONGOLIAN SPEAKING, CAN SPEAK SOME TAJIK. PT IS ABLE TO MAKE NEEDS KNOWN, ABLE TO FOLLOW COMMANDS. RESPIRATIONS EVEN AND UNLABORED ON ROOM AIR. SKIN IS INTACT. PT AMBULATES WITH ASSIST. PT HAS 20G IV TO LEFT EJ, PATENT, INTACT, AND ASYMPTOMATIC INFUSING IVF WELL. DISCUSSED PLAN OF CARE WITH PT, PT VERBALIZED UNDERSTANDING. PATIENT DRY HEAVING BUT NO EMESIS AT THE MOMENT. SAFETY AND ISOLATION PRECAUTION IN PLACE, BED IN LOWEST POSITION, BED ALARM ON. CALL LIGHT WITHIN REACH, WILL CONTINUE TO MONITOR PATIENT.
[2018-08-15 07:33] LABS: EOSINOPHILS % (MANUAL) 2 % (0-4); LYMPHOCYTES % (MANUAL) 11 % (20-46); MONOCYTES % (MANUAL) 3 % (5-12)
[2018-08-15 07:42] LABS: ALBUMIN 1.9 g/dL (3.4-5.0); ANION GAP 11.8 (8-16); CARBON DIOXIDE 21.2 mmol/L (21-32); CREATININE 1.5 mg/dL (0.6-1.3); MAGNESIUM 2.8 mg/dL (1.8-2.4); PHOSPHORUS 3.6 mg/dL (2.5-4.9); TOTAL BILIRUBIN 0.1 mg/dL (0.0-1.0)
[2018-08-15] MEDS: PROMETHAZINE 25 MG/ML VIAL IM PRN (07:53)
--- NOTE | 2018-08-15 07:53 | NUR ---
PATIENT C/O OF NAUSEA, PHENERGAN IM GIVEN. PATIENT TOLERATED IT BUT STILL DRY HEAVING. PATIENT ALSO VOIDED AND HAD SMALL CHUNKY BM. PATIENT CLEANED AND CHANGED AND REPOSITION FOR COMFORT. SAFETY AND ISOLATION PRECAUTION IN PLACE, CALL LIGHT WITHIN REACH. WILL CONTINUE TO MONITOR PATIENT.
[2018-08-15] MEDS: CALCIUM ACETATE 667 MG TAB PO SCH (08:00)
[2018-08-15] MEDS: POLYETHYLENE GLYCOL 17 GM/PKT PO SCH ×2 (08:52→21:00)
[2018-08-15] MEDS: BENAZEPRIL 20 MG TAB PO SCH (08:53)
[2018-08-15] MEDS: CARVEDILOL 3.125 MG TAB PO SCH ×2 (08:53→21:46)
[2018-08-15] MEDS: FUROSEMIDE 20 MG TAB PO SCH (08:53)
[2018-08-15] MEDS: ASPIRIN 81 MG TAB.CHEW PO SCH (08:53)
[2018-08-15] MEDS: SENNA 8.6 MG TAB PO SCH ×3 (08:53→16:40)
--- NOTE | 2018-08-15 08:53 | NUR ---
ORDERED MEDICATION GIVEN. PATIENT STILL VOMITING CLEAR LIQUID EMESIS AND DRY HEAVING. VS WNL EXCEPT FOR INCREASED HEART RATE. SAFETY AND ISOLATION PRECAUTION IN PLACE, CALL LIGHT WITHIN REACH, WILL CONTINUE TO MONITOR PATIENT.
[2018-08-15] MEDS ORDERED: MEROPENEM 1,000 MG in NACL 0.9% 100 ML IV SCH ×2 (10:00→21:00)
[2018-08-15] MEDS ORDERED: CLINICAL MONITORING MC PRN (10:10)
[2018-08-15] MEDS: ONDANSETRON 4 MG/2 ML VIAL IVP PRN (10:33)
--- NOTE | 2018-08-15 10:45 | NUR ---
PATIENT STILL DRY HEAVING AND VOMITING CLEAR LIQUID EMESIS. ZOFRAN PRN IVP GIVEN. PATIENT TOLERATED IT. ORDERED ANTIBIOTICS GIVEN. WILL STAY AT BEDSIDE AND ASSESS FOR ANY SIGN AND SYMPTOMS OF REACTION. PATIENT LYING IN BED, STILL C/O OF NAUSEA. PT ALSO C/O OF RIGHT EAR PAIN AND LEFT LEG/HIP PAIN. WILL MENTION TO DR. DIGGS FOR POSSIBLE PAIN MEDICATION OTHER THAN TYLENOL P.O, PER PATIENT'S REQUEST. SAFETY AND ISOLATION PRECAUTION IN PLACE, CALL LIGHT WITHIN REACH. WILL CONTINUE TO MONITOR PATIENT.
[2018-08-15] MEDS ORDERED: fentaNYL 0.05 MG/ML VIAL ONE (11:15)
[2018-08-15] MEDS ORDERED: MIDAZOLAM 2 MG/2 ML VIAL ONE (11:15)
--- NOTE | 2018-08-15 11:20 | NUR ---
PATIENT TAKEN BY PRISCILLA, PEDIATRIC NEUROPSYCHOLOGIST, TO COLONOSCOPY PROCEDURE WITH DR. MATUTE. PATIENT IN STABLE CONDITION.
[2018-08-15] MEDS ORDERED: VANCOMYCIN 1,000 MG VIAL PO SCH (12:00)
--- NOTE | 2018-08-15 12:05 | NUR ---
PATIENT BACK FROM COLONOSCOPY, PATIENT HAS CDIFF COLITIS. INFORMED DR. DIGGS AND ADMIN ASST JOWIE. WILL CONTINUE TO MONITOR PATIENT. Addendum: 08/15/18 at 2027 by Amos Haji RN PER DR. MATUTE, NO NEED TO COLLECT CDIFF AND SEND TO LAB. INFORMED DR. DIGGS, SHE STATED THAT SHE WILL INFORM DR. DEL REAL SO SHE CAN DC HIS ORDER. RN VERBALIZED UNDERSTANDING.
--- NOTE | 2018-08-15 12:10 | NUR ---
PATIENT'S IN ROOM, EDUCATED HIM ON CDIFF PRECAUTION AND CONTACT PRECAUTIONS AND PPE. HE VERBALIZED UNDERSTANDING. WILL CONTINUE TO MONITOR PATIENT.
--- NOTE | 2018-08-15 12:54 | NUR ---
CM NOTE FAXED CONCURRENT REVIEW TO [facility] [phone] JOSE F PH# [phone].
[2018-08-15] MEDS: VANCOMYCIN 1,000 MG VIAL PO SCH ×2 (14:10→17:57)
[2018-08-15] MEDS: PHARMACY COMMENTS MC SCH ×2 (14:10→17:57)
--- NOTE | 2018-08-15 14:19 | NUR ---
BLOOD SUGAR 169, PATIENT REFUSED INSULIN BECAUSE SHE JUST WANTS TO RELAX AND SLEEP. RN EDUCATED PATIENT BUT VERBALIZED UNDERSTANDING OF PATIENT'S REFUSAL. WILL CONTINUE TO MONITOR PATIENT.
[2018-08-15] MEDS ORDERED: MIDAZOLAM 2 MG/2 ML VIAL IVP ONE (14:45)
[2018-08-15] MEDS ORDERED: fentaNYL 0.05 MG/ML VIAL IVP ONE (14:45)
--- NOTE | 2018-08-15 16:02 | NUR ---
PATIENT RESTING IN BED, VS WNL. PATIENT DRY HEAVING BUT ASKING FOR APPLE JUICE. SPOKE TO DR. DIGGS. NEW ORDERS IN FOR CLEAR LIQUID DIET. SAFETY AND ISOLATION PRECAUTION IN PLACE, CALL LIGHT WITHIN REACH, WILL CONTINUE TO MONITOR PATIENT.
[2018-08-15] MEDS ORDERED: POTASSIUM CHLORIDE 20% 40 MEQ/15 ML UDC PO SCH (16:18)
--- NOTE | 2018-08-15 16:38 | NUR ---
INFORMED DR. DIGGS ABOUT PATIENT'S K LEVEL OF 3.0, NEW ORDERS IN. ORDERED MEDICATION GIVEN. PATIENT TRIED TO TAKE MEDICATION BUT ALSO VOMITED CLEAR LIQUID EMESIS. WILL CONTINUE TO MONITOR PATIENT.
[2018-08-15] MEDS ORDERED: LORazepam 2 MG/ML VIAL IM/IVP SCH (18:00)
--- NOTE | 2018-08-15 18:04 | NUR ---
ORDERED MEDICATION GIVEN. PATIENT TRYING TO TOLERATE HER CLEAR LIQUID DIET. PATIENT DRY HEAVING AND VOMITING CLEAR LIQUID EMESIS. ATIVAN GIVEN ORDERED. PATIENT TOLERATED IT WELL. SAFETY AND ISOLATION PRECAUTION IN PLACE, CALL LIGHT WITHIN REACH, WILL CONTINUE TO MONITOR PATIENT. Addendum: 08/15/18 at 2021 by Amos Haji RN BLOOD SUGAR 251, COVERAGE GIVEN.
--- NOTE | 2018-08-15 19:21 | NUR ---
RECEIVED REPORT FROM DAY SHIFT NURSEJASWINDER, AT PT BEDSIDE. PT IN STABLE CONDITION. PT CURRENTLY ASLEEP IN BED. RESPIRATIONS EVEN AND UNLABORED. IV ACCESS IN R HAND 24G WITH IVF RUNNING PER MD ORDERS. IV IS PATENT AND INTACT. PT SKIN IS INTACT. C. DIF SAMPLE PENDING, WILL TRY TO OBTAIN. ALLERGY WRISTBAND IN PLACE. FALL RISK PRECAUTIONS IN PLACE. BED IS LOCKED, LOW POSITION, AND SIDE RAILS UP X2. CALL LIGHT IS WITHIN REACH. BOARD UPDATED. WILL CONTINUE TO MONITOR.
--- NOTE | 2018-08-15 19:21 | NUR ---
REPORT GIVEN TO LIME KILN WORKER NURSE AT BEDSIDE FOR CONTINUITY OF CARE. PATIENT IN STABLE CONDITION AND RESTING.
--- NOTE | 2018-08-15 21:10 | NUR ---
ASSISTED MEDICAL DRIVER IN CHANGING, CLEANING AND REPOSITIONING PT. PT TOLERATED WELL. WILL CONTINUE TO MONITOR.
[2018-08-15] MEDS ORDERED: VANCOMYCIN PER PHARMACY MC PRN (21:30)
[2018-08-15] MEDS: AMITRIPTYLINE 25 MG TAB PO SCH (21:45)
[2018-08-15] MEDS: SIMVASTATIN 20 MG TAB PO SCH (21:46)
[2018-08-15] MEDS: INSULIN LANTUS 100 UNITS/ML 10 ML VIAL SUBQ SCH (21:55)
--- NOTE | 2018-08-15 21:55 | NUR ---
ADMINISTERED SCHEDULED MEDICATIONS. MEDICATION, MIRALAX NOT GIVEN DUE TO PT CURRENTLY HAVING DIARRHEA. BS CHECKED, 135, NO COVERAGE NEEDED PER ORDERS. PT TOLERATED WELL WILL CONTINUE TO MONITOR.
--- NOTE | 2018-08-15 23:11 | NUR ---
PT ASLEEP IN BED. NO SIGNS OR SYMPTOMS OF DISTRESS. WILL CONTINUE TO MONITOR.
[2018-08-16] VITALS (9 sets, daily range): BP systolic 93–164; BP diastolic 52–91
[2018-08-16] MEDS: VANCOMYCIN 1,000 MG VIAL PO SCH ×5 (00:44→23:50)
[2018-08-16] MEDS: PHARMACY COMMENTS MC SCH ×5 (00:44→23:50)
--- NOTE | 2018-08-16 00:44 | NUR ---
SCHEDULED MEDICATION ADMINISTERED. PT DRY HEAVING BUT STATES DOES NOT HAVE ANY NAUSEA. WILL CONTINUE TO MONITOR.
[2018-08-16] MEDS ORDERED: VANCOMYCIN HCL 750 MG in DEXTROSE 5% 250 ML IV SCH (00:45)
[2018-08-16] MEDS ORDERED: VANCOMYCIN 1,000 MG VIAL ONE (01:32)
--- NOTE | 2018-08-16 01:36 | NUR ---
SCHEDULED MEDICATION ADMINISTERED. PT ASLEEP IN BED. NO SIGNS OR SYMPTOMS OF DISTRESS. WILL CONTINUE TO MONITOR.
--- NOTE | 2018-08-16 03:28 | NUR ---
PT ASLEEP IN BED WITH NO SIGNS OR SYMPTOMS OF DISTRESS. WILL CONTINUE TO MONITOR.
--- NOTE | 2018-08-16 05:10 | NUR ---
STOOL SAMPLE OBTAINED. PT HAS NO SIGNS OR SYMPTOMS OF DISTRESS. WILL CONTINUE TO MONITOR.
[2018-08-16] MEDS: metroNIDAZOLE 500 MG/NS PREMIX 100 ML IV SCH ×3 (05:25→21:59)
[2018-08-16] MEDS: SODIUM BICARBONATE 8.4% 50 MEQ in DEXT 5% / NACL 0.45% 1,000 ML IV SCH ×2 (05:30→09:27)
[2018-08-16] MEDS: BLOOD GLUCOSE MONITORING 1 DEV DEV FS SCH ×4 (05:59→19:54)
[2018-08-16] MEDS: INSULIN LISPRO SLIDING SCALE 100 UNITS/ML VIAL SUBQ PRN (06:14)
--- NOTE | 2018-08-16 06:14 | NUR ---
BS CHECKED 192. INSULIN COVERAGE GIVEN PER MD ORDERS. PT REFUSED ORAL VANCOMYCIN. PT STATED SHE DID NOT WANT TO TAKE ORAL ANTIBIOTIC BECAUSE SHE IS GETTING ENOUGH IN THE IV FORM. EXPLAINED TO PT THAT THE MD ORDERED THE ORAL MEDICATION TO HELP WITH HER INFECTION AND TO HELP GET HER WELL. PT STILL REFUSED. WILL CONTINUE TO MONITOR.
[2018-08-16] MEDS ORDERED: LORazepam 2 MG/ML VIAL IVP SCH (07:17)
--- NOTE | 2018-08-16 07:18 | NUR ---
ENDORSED PT TO DAY SHIFT NURSE FOR CONTINUITY OF CARE. PT IN STABLE CONDITION.
--- NOTE | 2018-08-16 07:20 | NUR ---
RECEIVED BEDSIDE REPORT FOR CUSTOMER RELATIONS CONSULTANT NURSE. PATIENT IS SLEEPING IN BED. CALL LIGHT WITHIN REACH.
[2018-08-16 07:57] LABS: ANION GAP 9.4 (8-16); CARBON DIOXIDE 23.7 mmol/L (21-32); CREATININE 1.1 mg/dL (0.6-1.3); POTASSIUM 3.1 mmol/L (3.5-5.1)
[2018-08-16 07:58] LABS: HEMATOCRIT 23.8 % (36-48); HEMOGLOBIN 7.8 g/dL (12.0-16.0); MEAN CORPUSCULAR HEMOGLOBIN 30 pg (27-31); MEAN CORPUSCULAR HGB CONC 33 g/dL (33-37); MEAN CORPUSCULAR VOLUME 90.5 fL (80-94); PLATELET COUNT (AUTO) 325 K/uL (140-450); RED BLOOD CELL COUNT(AUTO) 2.62 MIL/uL (4.20-5.40); RED CELL DISTRIBUTION WIDTH 14.6 % (11.6-13.7); WHITE BLOOD COUNT (AUTO) 16.9 K/uL (4.8-10.8)
--- NOTE | 2018-08-16 08:00 | NUR ---
SAMEER FROM LAB CALLED AND STATED THAT THE STOOLS COLLECTED BY [facility] HAS BEEN REJECTED AND DID NOT MEET THE CRITERIA FOR C-DIFF. WILL RE-COLLECT STOOL SPECIMEN FOR C-DIFF.
[2018-08-16 08:04] LABS: MAGNESIUM 2.1 mg/dL (1.8-2.4); PHOSPHORUS 2.4 mg/dL (2.5-4.9)
[2018-08-16 08:29] LABS: LYMPHOCYTES % (MANUAL) 12 % (20-46); MONOCYTES % (MANUAL) 5 % (5-12)
[2018-08-16] MEDS: ONDANSETRON 4 MG/2 ML VIAL IVP PRN (08:38)
[2018-08-16] MEDS: ASPIRIN 81 MG TAB.CHEW PO SCH (08:49)
[2018-08-16] MEDS: FUROSEMIDE 20 MG TAB PO SCH (08:49)
[2018-08-16] MEDS: BENAZEPRIL 20 MG TAB PO SCH (08:50)
[2018-08-16] MEDS: CARVEDILOL 3.125 MG TAB PO SCH ×2 (08:50→22:00)
[2018-08-16] MEDS: POTASSIUM CHLORIDE 20% 40 MEQ/15 ML UDC PO SCH ×2 (08:54→09:00)
[2018-08-16] MEDS: SENNA 8.6 MG TAB PO SCH ×3 (08:55→17:00)
[2018-08-16] MEDS: POLYETHYLENE GLYCOL 17 GM/PKT PO SCH ×2 (08:55→21:00)
--- NOTE | 2018-08-16 09:00 | NUR ---
[facility] INFECTION CONTROL SPOKE WITH DR CUMMINGS REGARDING THE C-DIFF CRITERIA NOT QUALIFIED BUT STILL DR CUMMINGS WANTED TO BE TESTED FOR C-DIFF AND STOOL SENT TO LAB. I SPOKE WITH DR CHUN AND DR MATUTE WANTED THE C-DIFF TO BE TESTED TOO.
--- NOTE | 2018-08-16 09:50 | NUR ---
PATIENT REFUSED ORAL POTASSIUM. REASON FOR TAKING IT AND RISK AND BENEFITS WERE EXPLAINED. PATIENT STATES THE LAST TIME SHE TOOK IT IT CAUSED STOMACH AND THROAT IRRITATION. DR DIGGS MADE AWARE AND WILL PUT IN NEW ORDER FOR K RIDER.
--- NOTE | 2018-08-16 10:00 | NUR ---
STOOL SPECIMEN COLLECTED AND SENT TO LAB FOR C-DIFF. REQUISITION FORM FILLED OUT AND CO-SIGNED BY SOSA ALVAREZSOLAR PHOTOVOLTAIC SYSTEMS ENGINEER NURSE.
--- NOTE | 2018-08-16 10:58 | NUR ---
CM NOTE FAXED CONCURRENT REVIEW TO [facility] [phone] JOSE F PH# [phone].
--- NOTE | 2018-08-16 11:15 | NUR ---
PATIENT IS SLEEPING IN BED. VITAL SIGNS WITHIN NORMAL LIMITS. CALL LIGHT WITHIN REACH. BED ALARM ON AND ON LOWEST POSITION. WILL CONTINUE TO MONITOR.
[2018-08-16] MEDS ORDERED: POTASSIUM CHLORIDE 40 MEQ, LIDOCAINE 1% 25 MG in NACL 0.9% 250 ML IV SCH (12:00)
[2018-08-16] MEDS ORDERED: LORazepam 2 MG/ML VIAL IM/IVP PRN (12:00)
[2018-08-16] MEDS ORDERED: LORazepam 2 MG/ML VIAL IM/IVP ONE (12:00)
[2018-08-16] MEDS ORDERED: HYDROmorphone 1 MG/ML AMP IVP SCH (12:21)
--- NOTE | 2018-08-16 12:30 | NUR ---
PT SIGNED CONSENT FOR CENTRAL LINE PLACEMENT, PT VERBALIZED UNDERSTANDING. TIME OUT SHEET DONE. RT IJ CENTRAL LINE PLACEMENT STARTED AT THE BEDSIDE.
--- NOTE | 2018-08-16 12:50 | NUR ---
RT IJ CENTRAL LINE PLACEMENT COMPLETED. PT'S VITAL SIGNS STABLE. CHEST XRAY DONE POST CENTRAL LINE PLACEMENT.
[2018-08-16] MEDS ORDERED: POTASSIUM CHLORIDE 10 MEQ TABER PO SCH (13:00)
--- NOTE | 2018-08-16 14:15 | NUR ---
PATIENT IS SLEEPING IN BED. VITAL SIGNS ARE WITHIN NORMAL LIMITS. BED ON LOWEST POSITION AND BED ALARM IS ON. CALL LIGHT WITHIN REACH.
--- NOTE | 2018-08-16 15:00 | NUR ---
PATIENT IS SLEEPING COMFORTABLY IN BED POST CENTRAL LINE INSERTION BUT IS EASILY AROUSABLE. HER VITAL SIGNS ARE WITHIN NORMAL LIMITS. CALL LIGHT WITHIN REACH.
[2018-08-16] MEDS ORDERED: TPN PER PHARMACY MC PRN ×2 (15:20→15:30)
--- NOTE | 2018-08-16 17:00 | NUR ---
PATIENT IS RESTING IN BED. IS AT BEDSIDE. PATIENT DENIES ANY PAIN. NO DISTRESS NOTED AT THIS TIME. PATIENT BLOOD GLUCOSE IS 111. PATIENT AWARE TPN WILL BEGIN TOMORROW. CALL LIGHT WITHIN REACH. BED ON LOWEST POSITION AND BED ON LOWEST POSITION. WILL CONTINUE TO MONITOR
--- NOTE | 2018-08-16 19:25 | NUR ---
ENDORSED PATIENT TO TUBING MACHINE TENDER NURSE. PATIENT IS RESTING IN BED WITH AT BEDSIDE. NO DISTRESS NOTED AT THIS TIME.
--- NOTE | 2018-08-16 19:25 | NUR ---
RECEIVED REPORT FROM DAY SHIFT NURSE, TALA, AT PT BEDSIDE. PT IN STABLE CONDITION. PT CURRENTLY ASLEEP IN BED. RESPIRATIONS EVEN AND UNLABORED. IV ACCESS IN R HAND 24G WITH IVF RUNNING PER MD ORDERS. IV IS PATENT AND INTACT. NEW R IJ TRIPLE LUMEN PLACED EARLIER TODAY. DRESSING DRY AND INTACT. PT SKIN IS INTACT. C. DIF RESULTS PENDING. ALLERGY WRISTBAND IN PLACE. FALL RISK PRECAUTIONS IN PLACE. BED IS LOCKED, LOW POSITION, AND SIDE RAILS UP X2. CALL LIGHT IS WITHIN REACH. BOARD UPDATED. WILL CONTINUE TO MONITOR.
--- NOTE | 2018-08-16 19:54 | NUR ---
BS CHECKED, 146. NO COVERAGE NEEDED PER MD ORDERS. WILL CONTINUE TO MONITOR PT.
[2018-08-16] MEDS: SIMVASTATIN 20 MG TAB PO SCH (21:00)
[2018-08-16] MEDS: AMITRIPTYLINE 25 MG TAB PO SCH (21:00)
[2018-08-16] MEDS ORDERED: metroNIDAZOLE 500 MG/NS PREMIX 100 ML IV ONE (21:54)
[2018-08-16] MEDS ORDERED: CARVEDILOL 6.25 MG TAB ONE (21:58)
[2018-08-16] MEDS: METOCLOPRAMIDE 10 MG/2 ML INJ VIAL IVP PRN (21:59)
--- NOTE | 2018-08-16 22:00 | NUR ---
AVAILABLE MEDICATIONS ADMINISTERED TO PT. PT C/O NAUSEA REGLAN GIVEN. WILL CONTINUE TO MONITOR PT.
[2018-08-16] MEDS ORDERED: METOCLOPRAMIDE 10 MG/2 ML INJ VIAL ONE (22:01)
[2018-08-16] MEDS: INSULIN LANTUS 100 UNITS/ML 10 ML VIAL SUBQ SCH (22:05)
--- NOTE | 2018-08-16 22:32 | NUR ---
LAB CALLED WITH BLOOD CULTURE RESULT. INFORMED MD PITTS OF RESULTS. D/T TECHNICAL ERROR MEDIATION SIMVASTATIN AND AMITRIPTYLINE UNABLE OT BE PULLED FROM PYXIS. MUNOZ TO ORDER ONE TIME DOSE SO MEDICATION CAN BE ADMINISTERED. WILL CONTINUE TO MONITOR PT.
[2018-08-16] MEDS ORDERED: AMITRIPTYLINE 25 MG TAB PO SCH (23:00)
[2018-08-16] MEDS ORDERED: SIMVASTATIN 20 MG TAB PO SCH (23:00)
--- NOTE | 2018-08-16 23:50 | NUR ---
ADMINISTERED SCHEDULED MEDICATIONS. PT TOLERATED WELL. PT NO LONGER HAVING NAUSEA AT THIS TIME. WILL CONTINUE TO MONITOR.
[2018-08-17] VITALS: BP 127/78
[2018-08-17] MEDS: SODIUM BICARBONATE 8.4% 50 MEQ in DEXT 5% / NACL 0.45% 1,000 ML IV SCH ×3 (02:30→23:30)
[2018-08-17 04:00] VITALS: BP 150/92
[2018-08-17] MEDS ORDERED: METOCLOPRAMIDE 10 MG/2 ML INJ VIAL ONE (04:17)
[2018-08-17] MEDS ORDERED: metroNIDAZOLE 500 MG/NS PREMIX 100 ML IV ONE (04:18)
[2018-08-17] MEDS: metroNIDAZOLE 500 MG/NS PREMIX 100 ML IV SCH ×3 (04:18→20:42)
[2018-08-17] MEDS: METOCLOPRAMIDE 10 MG/2 ML INJ VIAL IVP PRN ×2 (04:18→16:35)
--- NOTE | 2018-08-17 04:18 | NUR ---
ADMINISTERED SCHEDULED MEDICATION. PT C/O NAUSEA. REGLAN GIVEN. PT TOLERATED WELL. WILL CONTINUE TO MONITOR.
--- NOTE | 2018-08-17 04:53 | NUR ---
ASKED PT IF SHE WOULD LIKE TO BE CLEANED AND CHANGED. PT STATED SHE DID NOT WANT TO BE BOTHERED RIGHT NOW MAYBE LATER. WILL CONTINUE TO MONITOR PT.
[2018-08-17] MEDS: BLOOD GLUCOSE MONITORING 1 DEV DEV FS SCH ×2 (05:53→12:26)
[2018-08-17] MEDS: VANCOMYCIN 1,000 MG VIAL PO SCH ×4 (06:00→18:00)
[2018-08-17] MEDS: PHARMACY COMMENTS MC SCH ×4 (06:00→18:00)
[2018-08-17] MEDS: VANCOMYCIN 500 MG in DEXTROSE 5% 100 ML IV SCH (06:06)
[2018-08-17] MEDS: INSULIN LISPRO SLIDING SCALE 100 UNITS/ML VIAL SUBQ PRN (06:06)
--- NOTE | 2018-08-17 06:06 | NUR ---
ADMINISTERED SCHEDULED IV VANCOMYCIN. PT REFUSED ORAL VANCO. PT STATES IT UPSETS HER STOMACH. BS CHECKED, 161, COVERAGE GIVEN PER MD ORDERS. PT TOLERATED WELL. WILL CONTINUE TO MONITOR.
--- NOTE | 2018-08-17 07:16 | NUR ---
ENDORSED PT TO DAY SHIFT NURSE, LILY, FOR CONTINUITY OF CARE. PT IN STABLE CONDITION.
--- NOTE | 2018-08-17 07:17 | NUR ---
RECEIVED REPORT FROM BOILERMAKER ASSEMBLY AND ERECTION NURSE. PATIENT IN STABLE CONDITION. SLEEPING COMFORTABLY IN BED. HAS R HAND 24 GG IV INFUSING PER MD ORDERS. NEW R IJ TRIPLE LUMEN INSERTED ON 08/16. DRESSING IS CLEAN. RESPIRATION ARE UNLABORED AND SYMMETRICAL. SHE IS ON ROOM AIR. BED ALARM ON LOWEST POSITION AND BED ALARM ON.
--- NOTE | 2018-08-17 07:40 | NUR ---
PT MOVING IN BED, KICKING HIS LEGS. IV IN ROOT FOOT IS OUT, CATHETER TIP INTACT. WILL START A NEW IV. Addendum: 08/17/18 at 1008 by Margarita Moses RN WRONG PT ENTRY.
[2018-08-17 08:00] VITALS: BP 157/88
[2018-08-17] MEDS ORDERED: VANCOMYCIN 500 MG in DEXTROSE 5% 100 ML IV SCH (08:00)
--- NOTE | 2018-08-17 08:15 | NUR ---
OR NURSE ATTEMPT TO START NEW IV TWICE BUT WAS UNSUCCESSFUL. Addendum: 08/17/18 at 1008 by Margarita Moses RN WRONG PT ENTRY.
[2018-08-17] MEDS: POTASSIUM CHLORIDE 20% 40 MEQ/15 ML UDC PO SCH (09:00)
[2018-08-17] MEDS: ASPIRIN 81 MG TAB.CHEW PO SCH (09:00)
[2018-08-17] MEDS: SENNA 8.6 MG TAB PO SCH ×3 (09:00→17:00)
[2018-08-17] MEDS: POLYETHYLENE GLYCOL 17 GM/PKT PO SCH ×2 (09:00→20:49)
--- NOTE | 2018-08-17 09:30 | NUR ---
SECOND NURSE ATTEMPTED TO START NEW IV 3 TIMES BUT WAS UNSUCCESSFUL. Addendum: 08/17/18 at 1008 by Margarita Moses RN WRONG PT ENTRY.
--- NOTE | 2018-08-17 09:55 | NUR ---
PT REFUSING AM MEDICATION. I LET HER KNOW I WOULD AT LEAST GIVE HER THE BLOOD PRESSURE MEDICATIONS BECAUSE HER BLOOD PRESSURE WAS ELEVATED. PT AGREED AND VERBALIZED UNDERSTANDING.
[2018-08-17] MEDS: CARVEDILOL 3.125 MG TAB PO SCH ×2 (10:15→20:42)
[2018-08-17] MEDS: FUROSEMIDE 20 MG TAB PO SCH (10:15)
[2018-08-17] MEDS: BENAZEPRIL 20 MG TAB PO SCH (10:15)
--- NOTE | 2018-08-17 10:29 | NUR ---
CM NOTE FAXED CONCURRENT REVIEW AND ORDER FOR SNF TO [facility] [phone] OSWALD CHUCKY PH# [phone]. [facility] OSWALD LOCKE AWARE PH# [phone] OF ORDER FOR SNF.
[2018-08-17 10:33] LABS: ANION GAP 10.4 (8-16); CARBON DIOXIDE 24.5 mmol/L (21-32); CREATININE 0.9 mg/dL (0.6-1.3)
[2018-08-17 10:35] LABS: POTASSIUM 2.9 mmol/L (3.5-5.1)
[2018-08-17 10:36] LABS: MAGNESIUM 1.6 mg/dL (1.8-2.4); PHOSPHORUS 2.5 mg/dL (2.5-4.9)
[2018-08-17 10:59] LABS: HEMATOCRIT 23.2 % (36-48); HEMOGLOBIN 7.7 g/dL (12.0-16.0); MEAN CORPUSCULAR HEMOGLOBIN 30 pg (27-31); MEAN CORPUSCULAR HGB CONC 33 g/dL (33-37); MEAN CORPUSCULAR VOLUME 91.4 fL (80-94); RED BLOOD CELL COUNT(AUTO) 2.53 MIL/uL (4.20-5.40); WHITE BLOOD COUNT (AUTO) 12.2 K/uL (4.8-10.8)
[2018-08-17 11:00] LABS: BASOPHILS # (AUTO) 0.3 K/uL (0.00-0.22); BASOPHILS % (AUTO) 2.1 % (0.0-2.0); EOSINOPHILS # (AUTO) 0.1 K/uL (0-0.4); EOSINOPHILS % (AUTO) 0.8 % (0.0-4.0); LYMPHOCYTES # (AUTO) 1.9 K/uL (2.5-16.5); LYMPHOCYTES % (AUTO) 15.2 % (20.5-51.1); MONOCYTES # (AUTO) 0.8 K/uL (0.8-1.0); MONOCYTES % (AUTO) 6.2 % (1.7-9.3); NEUTROPHILS # (AUTO) 9.1 K/uL (1.8-7.7); NEUTROPHILS % (AUTO) 75.7 % (42.2-75.2); PLATELET COUNT (AUTO) 353 K/uL (140-450); RED CELL DISTRIBUTION WIDTH 13.4 % (11.6-13.7)
--- NOTE | 2018-08-17 11:15 | NUR ---
PATIENT IS SLEEPING IN BED. NO DISTRESS NOTED. BED ON LOWEST POSITION AND CALL LIGHT IS WITHIN REACH. WILL CONTINUE TO MONITOR.
[2018-08-17] MEDS: SCOPOLAMINE 1.5 MG/72 HR PATCH TD SCH (11:28)
[2018-08-17 12:00] VITALS: BP 169/79
[2018-08-17] MEDS ORDERED: MAGNESIUM OXIDE 400 MG TAB PO SCH (12:34)
[2018-08-17] MEDS ORDERED: POTASSIUM CHLORIDE 20% 40 MEQ/15 ML UDC PO SCH (12:41)
--- NOTE | 2018-08-17 12:45 | NUR ---
OSWALD ROWLEY FAXED MOST CURRENT ORDER FOR SNF TO [facility] [phone]. PER OSWALD LOCKE # [phone], SHE WILL BE ARRANGING THE SNF PLACEMENT AND I INFORMED HER THAT PER PRISCILLA SKAGGS FROM [facility], THE TPN FORMULA WILL NOT BE AVAILABLE UNTIL LATE AFTERNOON TODAY. I ALSO GAVE OSWALD LOCKE THE NUMBER TO THE NURSING STATION WHERE PATIENT IS. CHARGE NURSE EDGAR AWARE. Addendum: 08/17/18 at 1258 by Marija Deutsch CM PER CHARGE PHYLLIS CHAVEZ INSTRUCTED THEM TO CONTINUE PATIENT ON C. DIFF ISO AND TREATMENT. [facility] OSWALD LOCKE MADE AWARE.
--- NOTE | 2018-08-17 12:56 | NUR ---
PT REFUSING VANCOMYCIN PO, MAG OX AND POTASSIUM CHLORIDE PO AT THIS TIME. PT STATED "I DONT WANT TO TAKE POTASSIUM BECAUSE IT GUTIERREZ MY LIPS AND VANCOMYCIN GUTIERREZ MY STOMACH." I ASKED HER IF SHE COULD TAKE THE MAG OX, PT STATED, "I CANT TAKE THE PILLS BECAUSE IT MAKES ME VERY NAUSEAS. WILL NOTIFY DR. MADISON.
[2018-08-17] MEDS: KCL 20 MEQ/WATER INJ PREMIX 100 ML IV SCH ×2 (14:16→14:33)
[2018-08-17 16:00] VITALS: BP 161/87
--- NOTE | 2018-08-17 16:06 | NUR ---
08/17/18 RD FOLLOW UP COMPLETED PLEASE REFER TO NUTRITION ASSESSMENT UNDER CARE ACTIVITY FOR ESTIMATED NUTRITIONAL NEEDS. 1. CONTINUE CLEAR LIQUID DIET AND TPN TOLERATED AND GRADUALLY INCREASE INFUSION RATE AND KCAL -TPN WILL PROVIDE 720 ML, 367 KCAL, 30 GM OF PROTEIN WHICH MEETS 20% OF ESTIMATED KCAL NEEDS AND 50% OF ESTIMATED PROTEIN NEEDS. 2. RD TO FOLLOW-UP 2-3 DAYS, HIGH RISK LUIS LOUIE, RD
--- NOTE | 2018-08-17 17:09 | NUR ---
I SPOKE TO DR. MADISON, I ASKED HER IF SHE WANTED TO KEEP THE BICARB FLUIDS AND TPN RUNNING AT THIS TIME. PER DR. DIGGS SHE DOES WANT TO KEEP THE BICARB FLUIDS RUNNING UNLESS ORDAINED MINISTER WANTS TO DISCONTINUE THE BICARB.
--- NOTE | 2018-08-17 17:10 | NUR ---
PER DR. MADISON MONITOR PATIENT FOR ANY REDNESS, ITCHINESS.
--- NOTE | 2018-08-17 17:28 | NUR ---
PT REFUSED SECOND BAG OF K RIDER. PT STATED THE MEDICATION MADE HER FEEL "HOT"
[2018-08-17] MEDS: BLOOD GLUCOSE MONITORING 1 DEV DEV MC SCH (18:00)
--- NOTE | 2018-08-17 19:20 | NUR ---
ENDORSED PATIENT TO BARBECUE COOK NURSE. PATIENT SLEEPING IN BED IN STABLE CONDITION. NURSE AWARE OF TPN STARTING AT 1999 TODAY 08/17. CALL LIGHT WITHIN REACH.
--- NOTE | 2018-08-17 19:30 | NUR ---
RECEIVED PT IN STABLE CONDITION FORM AM NURSE. AWAKE,ALERT AND ORIENTED X4. KOREAN SPEAKING. ON TELE MONITOR-ST. NO C/O ANY PAIN NOR DISCOMFORT NOTED AT THIS TIME. PLAN OF CARE DISCUSSED AND VERBALIZED UNDERSTANDING. WITH IVF INFUSING WELL ON THE RT INTERNAL JUGULAR TRIPLE LUMEN CENTRAL LINE. CLEAR AND PATENT. BED ON LOW POSITION,CALL LIGHT PLACED WITHIN EASY REACH. HAS BSC ALSO AT BEDSIDE. PT ON CONTACT ISOLATION FOR HX; ESBL URINE AND BLOOD . FREQUENT ROUNDS NEEDED. WILL CONTINUE TO MONITOR.
[2018-08-17 20:25] VITALS: BP 155/92
[2018-08-17] MEDS: MULTIVITAMIN IV SCH ×3 (20:35)
[2018-08-17] MEDS: AMINO ACIDS 8.5% IV SCH ×3 (20:35)
[2018-08-17] MEDS: DEXTROSE IV SCH ×3 (20:35)
--- NOTE | 2018-08-17 20:35 | NUR ---
TPN STARTED .PT AWARE THAT IT CONTAINS VITAMINS. INFUSING WELL ON THE RT INTERNAL JUGULAR TRIPLE LUMEN CENTRAL LINE.
[2018-08-17] MEDS: AMITRIPTYLINE 25 MG TAB PO SCH (20:42)
[2018-08-17] MEDS: SIMVASTATIN 20 MG TAB PO SCH (20:43)
[2018-08-17] MEDS ORDERED: metroNIDAZOLE 500 MG/NS PREMIX 100 ML IV SCH (21:00)
[2018-08-17] MEDS: INSULIN LANTUS 100 UNITS/ML 10 ML VIAL SUBQ SCH (21:40)
--- NOTE | 2018-08-17 21:45 | NUR ---
DR. DEL REAL CAME. CLARIFIED WITH HIM IF PT WILL STILL BE IN CONTACT PRECAUTION WITH BLEACH . HE SAID YES , DUE TO COLONOSCOPY POSITIVE TO C DIFF INFECTION.
--- NOTE | 2018-08-17 23:07 | NUR ---
PAGED DR. DEL REAL ABOUT THE FLAGYL IV IF HE REALLY WANTS IT TO BE DISCONTINUED IT APPEARED ON THE ORDER HISTORY COMPLETE BUT STILL ACTIVE IN EMAR. HE CALLED BACK AND SAID STILL CONTINUE WITH FLAGYL IVPB.
[2018-08-18 00:20] VITALS: BP 152/89
[2018-08-18] MEDS: BLOOD GLUCOSE MONITORING 1 DEV DEV MC SCH ×4 (00:27→18:07)
[2018-08-18] MEDS: INSULIN LISPRO SLIDING SCALE 100 UNITS/ML VIAL SUBQ PRN ×3 (00:27→13:24)
--- NOTE | 2018-08-18 02:00 | NUR ---
MADE ROUNDS. PT ASLEEP. NO S/S OF ANY DISCOMFORT NOTED. WILL CONTINUE TO MONITOR.
--- NOTE | 2018-08-18 03:31 | NUR ---
TALKED TO DR. PITTS REGARDING MAGNESIUM LEVEL 1.6 YESTERDAY THAT PT REFUSED THE MAG OXIDE 800MG, SHE WAS AWARE. SHE SAID WILL WAIT FOR THIS AM LABS.
[2018-08-18] MEDS: metroNIDAZOLE 500 MG/NS PREMIX 100 ML IV SCH ×3 (04:12→20:19)
[2018-08-18 04:21] VITALS: BP 146/85
[2018-08-18] MEDS: VANCOMYCIN 500 MG in DEXTROSE 5% 100 ML IV SCH (05:26)
[2018-08-18] MEDS: VANCOMYCIN 1,000 MG VIAL PO SCH ×4 (05:34→18:07)
[2018-08-18] MEDS: PHARMACY COMMENTS MC SCH ×4 (05:34→18:00)
[2018-08-18] MEDS: SODIUM BICARBONATE 8.4% 50 MEQ in DEXT 5% / NACL 0.45% 1,000 ML IV SCH ×2 (05:44→20:19)
--- NOTE | 2018-08-18 06:00 | NUR ---
BLOOD SUGAR THIS AM 152. INSULIN COVERAGE GIVEN SUBQ .
[2018-08-18 06:06] LABS: BASOPHILS % (AUTO) 0.3 % (0.0-2.0); EOSINOPHILS # (AUTO) 0.1 K/uL (0-0.4); EOSINOPHILS % (AUTO) 0.9 % (0.0-4.0); HEMATOCRIT 22.5 % (36-48); HEMOGLOBIN 7.5 g/dL (12.0-16.0); LYMPHOCYTES # (AUTO) 2.3 K/uL (2.5-16.5); LYMPHOCYTES % (AUTO) 21.8 % (20.5-51.1); MEAN CORPUSCULAR HEMOGLOBIN 30 pg (27-31); MEAN CORPUSCULAR HGB CONC 33 g/dL (33-37); MEAN CORPUSCULAR VOLUME 90.1 fL (80-94); MONOCYTES # (AUTO) 0.9 K/uL (0.8-1.0); MONOCYTES % (AUTO) 8.8 % (1.7-9.3); NEUTROPHILS # (AUTO) 7.2 K/uL (1.8-7.7); NEUTROPHILS % (AUTO) 68.2 % (42.2-75.2); PLATELET COUNT (AUTO) 276 K/uL (140-450); RED CELL DISTRIBUTION WIDTH 14.2 % (11.6-13.7); WHITE BLOOD COUNT (AUTO) 10.6 K/uL (4.8-10.8)
[2018-08-18 06:59] LABS: ANION GAP 7.8 (8-16); CARBON DIOXIDE 27.2 mmol/L (21-32); CREATININE 0.9 mg/dL (0.6-1.3)
[2018-08-18 07:07] LABS: MAGNESIUM 1.5 mg/dL (1.8-2.4); PHOSPHORUS 3.1 mg/dL (2.5-4.9)
--- NOTE | 2018-08-18 07:15 | NUR ---
ENDORSED PT IN STABLE CONDITION TO AM NURSE FOR CONTINUITY OF CARE.
--- NOTE | 2018-08-18 07:16 | NUR ---
RECEIVED BEDSIDE REPORT FROM SASH STICKER NURSE. PATIENT IS AWAKE, ALERT AND ORIENTEDX4. PATIENT IS WEAK. BEDSIDE COMMODE WITHIN REACH. FALL RISK PROTOCOL IN PLACE. SKIN IS INTACT. RIJ TRIPLE LUMEN INFUSING TPN AT 30ML AND D5 1/2 NS W SODIUM BICARB AT 100. IT IS CLEAN, DRY AND INTACT. TELE MONITOR IN PLACE. CONTACT PRECAUTIONS IN PLACE. PATIENT STILL NEEDS A STOOL SAMPLE. EDUCATED PATIENT ON THE NEED FOR STOOL AND TO CALL WHEN SHE NEEDS TO GO. BED IN LOW POSITION. CALL LIGHT WITHIN REACH, WILL CONTINUE TO MONITOR THE PATIENT.
[2018-08-18] MEDS: POLYETHYLENE GLYCOL 17 GM/PKT PO SCH ×3 (07:54→20:52)
[2018-08-18] MEDS: SENNA 8.6 MG TAB PO SCH ×3 (07:55→16:56)
[2018-08-18 08:00] VITALS: BP 176/84
[2018-08-18] MEDS: METOCLOPRAMIDE 10 MG/2 ML INJ VIAL IVP PRN (08:16)
[2018-08-18] MEDS: BENAZEPRIL 20 MG TAB PO SCH (08:20)
[2018-08-18] MEDS: ASPIRIN 81 MG TAB.CHEW PO SCH (08:22)
[2018-08-18] MEDS: CARVEDILOL 3.125 MG TAB PO SCH ×3 (08:22→20:25)
[2018-08-18] MEDS: POTASSIUM CHLORIDE 20% 40 MEQ/15 ML UDC PO SCH (08:31)
[2018-08-18] MEDS: FUROSEMIDE 20 MG TAB PO SCH (08:31)
--- NOTE | 2018-08-18 08:34 | NUR ---
ADMINISTERED PRN NAUSEA MED. PATIENT IS DRY HEAVING. ADMINISTERED OTHER ORDERED MEDS. PATIENT REFUSED ORAL POTASSIUM. DR DIGGS SAID IT IS OK TO GIVE LASIX PO AND SHE WILL GIVE HER IV POTASSIUM LATER. PATIENT AGREED TO IV POTASSIUM BUT IS ANXIOUS. DR DIGGS SAID SHE WILL ORDER MEDS TO HELP HER RELAX. BED IN LOW POSITION. WILL CONTINUE TO MONITOR
[2018-08-18] MEDS ORDERED: LORazepam 2 MG/ML VIAL IM/IVP SCH (08:41)
[2018-08-18] MEDS ORDERED: POTASSIUM CHLORIDE 40 MEQ, LIDOCAINE 1% 25 MG in NACL 0.9% 250 ML IV SCH (09:00)
[2018-08-18] MEDS ORDERED: MAG SULF 2000 MG/WATER PREMIX 50 ML IV SCH (09:00)
--- NOTE | 2018-08-18 09:28 | NUR ---
ADMINISTERED ATIVAN AND POTASSIUM ORDERED. PATIENT TOLERATING WELL. BED IN LOW POSITION. CALL LIGHT WITHIN REACH. WILL CONTINUE TO MONITOR THE PATIENT
--- NOTE | 2018-08-18 09:47 | NUR ---
OSWALD NOTE FAXED CONCURRENT REVIEW AND TPN FORMULA TO [facility] [phone] OSWALD LOCKE PH# [phone]. PER OSWALD BRADEN/CHAU LOCKE SHE IS STILL LOOKING FOR AN ACCEPTING SNF. I GAVE CHUCKY THE NUMBER TO THE NURSING STATION WHERE PATIENT IS.
[2018-08-18] MEDS ORDERED: VAN500I IV (10:17)
[2018-08-18] MEDS ORDERED: VANC250C2 PO (10:17)
[2018-08-18] MEDS ORDERED: ROC250I IV (10:17)
[2018-08-18] MEDS ORDERED: METR250T2 PO (10:17)
[2018-08-18] MEDS ORDERED: LACT10CA1 PO (10:22)
[2018-08-18] MEDS ORDERED: OXYTOCIN 10 UNITS/ML VIAL ONE (10:30)
--- NOTE | 2018-08-18 11:07 | NUR ---
PATIENT IS SLEEPING. NO SIGNS OF DISTRESS. POTASSIUM STILL INFUSING. WILL ADMINISTER MAGNESIUM WHEN POTASSIUM IS DONE. AT BEDSIDE. WILL CONTINUE TO MONITOR THE PATIENT
[2018-08-18 12:00] VITALS: BP 145/78
--- NOTE | 2018-08-18 13:25 | NUR ---
ADMINISTERED MEDS. PATIENT TOLERATED WELL. PATIENT GETTING A BED BATH W CASKET TRIMMER. WILL CONTINUE TO MONITOR THE PATIENT
[2018-08-18 13:49] LABS: ALBUMIN 1.3 g/dL (3.4-5.0); ANION GAP 7.8 (8-16); CARBON DIOXIDE 27.4 mmol/L (21-32); CREATININE 0.9 mg/dL (0.6-1.3); POTASSIUM 4.2 mmol/L (3.5-5.1); TOTAL BILIRUBIN 0.1 mg/dL (0.0-1.0)
--- NOTE | 2018-08-18 14:09 | NUR ---
POTASSIUM DONE. INFUSING MG RIDER. PATIENT TOLERATING WELL. PATIENT IN BED TRYING TO UNTANGLE HER HAIR. NO SIGNS OF DISTRESS. WILL CONTINUE TO MONITOR THE PATIENT
--- NOTE | 2018-08-18 15:00 | NUR ---
CM NOTE PER [facility]/REGGA OSWALD LOCKE [phone], OSWALD LADD IS WORKING ON THIS AND LOOKING FOR AN ACCEPTING SNF. PER [facility]/REGGA OSWALD LADD PH# [phone], STILL NO ACCEPTING SNF AT THIS TIME DUE TO ISOLATION. SHE SAID SHE IS STILL LOOKING FOR AN ACCEPTING SNF. I GAVE OSWALD LADD THE NUMBER TO THE NURSING STATION WHERE PATIENT IS. PER [facility] PH# [phone]. CHARGE NURSE KATHRYN RAMOS.
[2018-08-18 16:00] VITALS: BP 145/69
--- NOTE | 2018-08-18 16:00 | NUR ---
PATIENT IS SLEEPING. WILL CONTINUE TO MONITOR THE PATIENT. BED IN LOW POSITION. CALL LIGHT WITHIN REACH
--- NOTE | 2018-08-18 17:00 | NUR ---
ADMINISTERED MEDS. PATIENT TOLERATING WELL. BED IN LOW POSITION. CALL LIGHT WITHIN REACH
--- NOTE | 2018-08-18 18:10 | NUR ---
ADMINISTERED MEDS. PATIENT COMPLAINING ABOUT TAKING THE VANCO CAUSE HER STOMACH FEELS EMPTY. PATIENT TOLERATED WELL. SHE WANTS TO EAT SOMETHING. WILL ASK THE DOCTOR
--- NOTE | 2018-08-18 19:10 | NUR ---
RECEIVED BEDSIDE REPORT FROM DAY SHIFT RN SIOBHAN. PT IN BED, ON CONTACT AND FALL PRECAUTIONS. PT ON RA, NO SIGNS OF ACUTE DISTRESS,TRIPLE LUMEN PICC INFUSING TPN AT 30 ML/HR AND NA BICARBONATE AT 100 ML/H, DRESSING TO BE CHANGED BY SOSA MCCANN. UPDATED BORED EXPLAINED PLAN OF CARE, V/S TAKEN ALL WITHIN PTS BASELINE WILL START FREQ CHECKS.
--- NOTE | 2018-08-18 19:10 | NUR ---
GAVE BEDSIDE REPORT TO SENIOR WRITER NURSE. ENDORSED PATIENT IN STABLE CONDITION
[2018-08-18 20:00] VITALS: BP 149/77
[2018-08-18] MEDS: MULTIVITAMIN IV SCH ×3 (20:19)
[2018-08-18] MEDS: DEXTROSE IV SCH ×3 (20:19)
[2018-08-18] MEDS: AMINO ACIDS 8.5% IV SCH ×3 (20:19)
[2018-08-18] MEDS: SIMVASTATIN 20 MG TAB PO SCH ×2 (20:21→20:25)
[2018-08-18] MEDS: AMITRIPTYLINE 25 MG TAB PO SCH ×2 (20:21→20:25)
--- NOTE | 2018-08-18 20:26 | NUR ---
PT REFUSED DUE MEDICATION COREG, SIMVASTATIN, AND AMITRIPTYLINE HCL. STATES "TOO MUCH MEDICATION FOR MY STOMACH". EDUCATION PROVIDED REGARDING TPN. WILL HOLD DUE MEDICATION. Addendum: 08/18/18 at 2027 by Myriam Hager RN WILL WASTE IN APPROPRIATE CONTAINER SINCE MEDICATION HAVE ALREADY BEEN OPENED.
--- NOTE | 2018-08-18 20:53 | NUR ---
PT REFUSED DUE MIRALAX, PT STATES "NO NOT NOW." WILL HOLD DUE MIRALAX.
[2018-08-18] MEDS: INSULIN LANTUS 100 UNITS/ML 10 ML VIAL SUBQ SCH (20:58)
--- NOTE | 2018-08-18 21:20 | NUR ---
PT CRYING IN BED D/T WANTING SOMETHING TO EAT. SPOKE WITH DR PITTS. DR PITTS CHANGED DIET TO CLEAR LIQUIDS. OFFERED PT JELLO. WILL CONTINUE TO MONITOR.
[2018-08-19] VITALS: BP 150/77
[2018-08-19] MEDS: BLOOD GLUCOSE MONITORING 1 DEV DEV MC SCH ×4 (00:25→17:31)
--- NOTE | 2018-08-19 00:32 | NUR ---
PT REFUSED DUE VANCOMYCIN. STATED "NOT RIGHT NOW". WILL HOLD DUE MEDICATION.
[2018-08-19] MEDS: PROMETHAZINE 25 MG/ML VIAL IM PRN (00:38)
--- NOTE | 2018-08-19 00:38 | NUR ---
PT C/O FEELING NAUSEOUS, OFFERED ZOFRAN, PT REFUSED, OFFERED PROMETHAZINE PT STATES "YES". MEDICATED WITH PROMETHAZINE ACCORDING TO MARILYN MACK.
[2018-08-19] MEDS ORDERED: SODIUM BICARBONATE 8.4% PFS 50 MEQ/50 ML SYR IVP ONE (01:53)
[2018-08-19] MEDS ORDERED: diphenhydrAMINE 50 MG/ML VIAL IVP SCH (02:15)
--- NOTE | 2018-08-19 02:15 | NUR ---
PT C/O ITCHING FROM PROMETHAZINE, NO HIVES OR SKIN IRRITATION NOTED. DR PITTS ORDER FOR ONE TIME BENADRYL.
[2018-08-19 04:00] VITALS: BP 148/70
[2018-08-19] MEDS: VANCOMYCIN 500 MG in DEXTROSE 5% 100 ML IV SCH (05:56)
[2018-08-19] MEDS: VANCOMYCIN 1,000 MG VIAL PO SCH ×6 (05:57→17:51)
[2018-08-19] MEDS: SODIUM BICARBONATE 8.4% 50 MEQ in DEXT 5% / NACL 0.45% 1,000 ML IV SCH (05:57)
[2018-08-19] MEDS: PHARMACY COMMENTS MC SCH ×4 (05:57→18:33)
--- NOTE | 2018-08-19 05:57 | NUR ---
PT REFUSED DUE MEDICATION, WILL HOLD INSULIN FOR BLOOD GLUCOSE 181 AND VANCOMYCIN.
[2018-08-19 06:36] LABS: BASOPHILS # (AUTO) 0.1 K/uL (0.00-0.22); BASOPHILS % (AUTO) 0.7 % (0.0-2.0); EOSINOPHILS # (AUTO) 0.2 K/uL (0-0.4); EOSINOPHILS % (AUTO) 1.5 % (0.0-4.0); HEMATOCRIT 21.6 % (36-48); HEMOGLOBIN 7.2 g/dL (12.0-16.0); LYMPHOCYTES % (AUTO) 26.3 % (20.5-51.1); MEAN CORPUSCULAR HEMOGLOBIN 30 pg (27-31); MEAN CORPUSCULAR HGB CONC 33 g/dL (33-37); MEAN CORPUSCULAR VOLUME 90.3 fL (80-94); MONOCYTES # (AUTO) 0.8 K/uL (0.8-1.0); MONOCYTES % (AUTO) 6.5 % (1.7-9.3); NEUTROPHILS # (AUTO) 7.5 K/uL (1.8-7.7); PLATELET COUNT (AUTO) 269 K/uL (140-450); RED BLOOD CELL COUNT(AUTO) 2.39 MIL/uL (4.20-5.40); RED CELL DISTRIBUTION WIDTH 13.8 % (11.6-13.7); WHITE BLOOD COUNT (AUTO) 11.5 K/uL (4.8-10.8)
[2018-08-19 06:45] LABS: PHOSPHORUS 3.1 mg/dL (2.5-4.9)
[2018-08-19 07:04] LABS: CREATININE 0.9 mg/dL (0.6-1.3)
--- NOTE | 2018-08-19 07:10 | NUR ---
PA REPORT RECEIVED AT BEDSIDE FROM HEARING AID ASSISTANT NURSE MARIAN. PT IS RESTING QUIETLY IN BED, NO S/S OF DISTRESS NOTED. PT IS ON ROOM AIR. R IJ TRIPLE LUMEN CENTRAL LINE NOTED, IVF AND TPN INFUSING WELL. NO ACTIVE N/V AT THIS TIME. BED LOW, CALL LIGHT WITHIN REACH, FALL PRECAUTIONS IN PLACE, WILL CONTINUE TO MONITOR.
[2018-08-19 07:12] LABS: ANION GAP 6.3 (8-16); CARBON DIOXIDE 27.9 mmol/L (21-32); POTASSIUM 3.2 mmol/L (3.5-5.1)
--- NOTE | 2018-08-19 07:30 | NUR ---
ENDORSED PT TO DAY SHIFT NURSE, PT STABLE.
[2018-08-19 08:00] VITALS: BP 169/72
[2018-08-19] MEDS: POTASSIUM CHLORIDE 20% 40 MEQ/15 ML UDC PO SCH ×2 (09:00→09:36)
[2018-08-19] MEDS: ASPIRIN 81 MG TAB.CHEW PO SCH (09:32)
[2018-08-19] MEDS: CARVEDILOL 3.125 MG TAB PO SCH ×2 (09:33→20:17)
[2018-08-19] MEDS: BENAZEPRIL 20 MG TAB PO SCH (09:33)
[2018-08-19] MEDS: FUROSEMIDE 20 MG TAB PO SCH (09:34)
[2018-08-19] MEDS: ACETAMINOPHEN 325 MG TAB PO PRN (09:34)
[2018-08-19] MEDS: SENNA 8.6 MG TAB PO SCH ×4 (09:35→17:00)
[2018-08-19] MEDS: POLYETHYLENE GLYCOL 17 GM/PKT PO SCH ×2 (09:37→21:00)
--- NOTE | 2018-08-19 09:43 | NUR ---
CALLED [facility] SPOKE WITH MARY AKERS RN DELIVERY FOR WEEKEND [phone] WILL CHECK AND CALL ME BACK.
[2018-08-19] MEDS: ONDANSETRON 4 MG/2 ML VIAL IVP PRN (09:55)
--- NOTE | 2018-08-19 10:13 | NUR ---
08/19/18 RD FOLLOW UP COMPLETED PLEASE REFER TO NUTRITION PROGRESS NOTE UNDER CARE ACTIVITY FOR ESTIMATED NUTRITION NEEDS. RD RECOMMENDATIONS: 1. CONTINUE CLEAR LIQUID DIET AND TPN TOLERATED. -TPN D10% AA4.25% PROVIDES 720 ML, 367 KCAL, 30 GM OF PROTEIN WHICH MEETS 20% OF ESTIMATED KCAL NEEDS AND 50% OF ESTIMATED PROTEIN NEEDS. 2. CONSIDER ADVANCING DIET TO CCHO 60 GM TOLERANCE INCREASES. 3. RD TO FOLLOW-UP 2-3 DAYS, HIGH RISK ELIJAH SCHWAB MS, RDN
[2018-08-19 12:00] VITALS: BP 152/93
[2018-08-19] MEDS ORDERED: KETOROLAC 15 MG/ML VIAL IVP SCH (12:00)
--- NOTE | 2018-08-19 12:00 | NUR ---
PT REFUSED TAKING SCHEDULED PO VANCOCIN. RISKS OF NOT TAKING VANCOCIN EXPLAINED TO PT. PT DECLINED IT.
[2018-08-19] MEDS: METOCLOPRAMIDE 10 MG/2 ML INJ VIAL IVP PRN (12:34)
[2018-08-19] MEDS: INSULIN LISPRO SLIDING SCALE 100 UNITS/ML VIAL SUBQ PRN (12:37)
--- NOTE | 2018-08-19 12:45 | NUR ---
PT C/O DISCOMFORT IN LOWER ABDOMEN, STATES THAT SHE FEELS LIKE SHE WANTS TO URINATE BUT CANNOT. BLADDER SCAN PERFORMED. SCANNER SHOWS >[address] ROPER NOTIFIED, WILL PLACE ORDER FOR GARNER CATHETER.
--- NOTE | 2018-08-19 13:45 | NUR ---
GARNER CATHETER 16 FR PLACED. PT TOLERATED WELL. 1900 ML OF URINE OUT INITIALLY. PT STATES HER ABDOMEN FEELS BETTER, AFTER BLADDER IS DRAINED.
[2018-08-19] MEDS ORDERED: MORPHINE SULFATE 2 MG/ML SYR IVP PRN (14:10)
[2018-08-19 16:00] VITALS: BP 149/66
--- NOTE | 2018-08-19 16:56 | NUR ---
YANIRA FROM [facility] CALLED ME AND STATED STILL LOOKING FOR SNF PLACEMENT NO SNF AVAILABLE THAT TAKING PATIENT WITH TPN , REQUESTING TO TAPE DOWN THE TPN TO 12 HRS OR 16 HRS BECAUSE MOST OF THE SNF'S DON'T HAVE RN TO COVER THE TPN 24 HRS. WILL ASK MD IF IT POSSIBLE TO HAVE TPN FOR 12 OR 16 HOURS. YANIRA F/U TOMORROW.
--- NOTE | 2018-08-19 17:57 | NUR ---
PT REFUSED TO TAKE SCHEDULED 1800 VANCOCIN PO. EXPLAINED RISKS OF REFUSAL OF VANCOCIN, PT STILL DECLINED.
--- NOTE | 2018-08-19 19:20 | NUR ---
PT REPORT GIVEN AT BEDSIDE TO BENCH INSPECTOR NURSE. PT IS ENDORSED IN STABLE CONDITION.
--- NOTE | 2018-08-19 19:25 | NUR ---
RECEIVED PT IN STABLE CONDITION FROM AM NURSE. AWAKE,ALERT AND ORIENTED X4. ON TELE MONITOR. WITH NO C/O ANY DISCOMFORT NOR PAIN NOTED. WITH GEN WEAKNESS. WITH GARNER CATH TO GRAVITY, CLEAR URINE OUTPUT. PLAN OF CARE DISCUSSED AND VERBALIZED UNDERSTANDING. TPN INFUSING WELL ON THE RT IJ TRIPLE LUMEN. WITH OLD BRUISED ON LT ARM. USES BEDPAN BUT SOMETIMES INCONTINENT OF LOOSE STOOL . ON CONTACT ISOLATION FOR + STOOL C DIFF AND HX: ESBL URINE AND BLOOD. BED ON LOW POSITION. CALL LIGHT PLACED WITHIN REACH. WILL CONTINUE TO MONITOR.
[2018-08-19 20:00] VITALS: BP 163/69
[2018-08-19] MEDS: [UNRECOGNIZED DRUG - OTHER] IV SCH (20:15)
[2018-08-19] MEDS: DEXTROSE 50% IV SCH (20:15)
[2018-08-19] MEDS: MULTIVITAMIN IV SCH (20:15)
[2018-08-19] MEDS: HUMAN IV SCH (20:15)
[2018-08-19] MEDS: INSULIN REGULAR IV SCH (20:15)
[2018-08-19] MEDS: SIMVASTATIN 20 MG TAB PO SCH (20:18)
[2018-08-19] MEDS: AMITRIPTYLINE 25 MG TAB PO SCH (20:18)
[2018-08-19] MEDS: INSULIN LANTUS 100 UNITS/ML 10 ML VIAL SUBQ SCH (21:44)
--- NOTE | 2018-08-19 23:00 | NUR ---
HAS BEEN CLEANED DUE TO LOOSE BM. CLEANED AND KEPT DRY.
[2018-08-20] VITALS (7 sets, daily range): BP systolic 125–165; BP diastolic 64–74
[2018-08-20] MEDS: BLOOD GLUCOSE MONITORING 1 DEV DEV MC SCH ×4 (00:12→17:19)
--- NOTE | 2018-08-20 03:00 | NUR ---
ASLEEP. NO S/S OF ANY DISCOMFORT NOTED.
[2018-08-20] MEDS: VANCOMYCIN 500 MG in DEXTROSE 5% 100 ML IV SCH (05:38)
--- NOTE | 2018-08-20 05:47 | NUR ---
BLOOD SUGAR THSI AM 131. NO INSULIN NEEDED.
--- NOTE | 2018-08-20 07:10 | NUR ---
PT REPORT RECEIVED AT BEDSIDE FROM AIRPLANE PILOT HELPER NURSE. PT IS AWAKE AND ALERT, NO S/S OF DISTRESS. PT IS ON ROOM AIR, RESPIRATIONS EVEN AND UNLABORED. SKIN INTACT. R IJ TRIPLE LUMEN NOTED, PATENT AND INTACT. INFUSING TPN PER ORDER. GARNER CATHETER NOTED DRAINING CLEAR YELLOW URINE. BED IS IN LOW POSITION, SAFETY PRECAUTIONS IN PLACE, CALL LIGHT WITHIN REACH, WILL CONTINUE TO MONITOR.
[2018-08-20 08:09] LABS: ANION GAP 4.2 (8-16); CARBON DIOXIDE 29.9 mmol/L (21-32); CREATININE 0.9 mg/dL (0.6-1.3); POTASSIUM 3.1 mmol/L (3.5-5.1)
[2018-08-20 08:12] LABS: ALBUMIN 1.3 g/dL (3.4-5.0); CHOL/HDL RATIO 2.9 (1-4.5); MAGNESIUM 1.7 mg/dL (1.8-2.4); PHOSPHORUS 3.3 mg/dL (2.5-4.9)
[2018-08-20 08:13] LABS: BASOPHILS # (AUTO) 0.1 K/uL (0.00-0.22); BASOPHILS % (AUTO) 0.8 % (0.0-2.0); EOSINOPHILS # (AUTO) 0.2 K/uL (0-0.4); EOSINOPHILS % (AUTO) 2.3 % (0.0-4.0); LYMPHOCYTES # (AUTO) 2.9 K/uL (2.5-16.5); LYMPHOCYTES % (AUTO) 32.4 % (20.5-51.1); MEAN CORPUSCULAR HEMOGLOBIN 31 pg (27-31); MEAN CORPUSCULAR HGB CONC 34 g/dL (33-37); MEAN CORPUSCULAR VOLUME 91.3 fL (80-94); MONOCYTES # (AUTO) 0.7 K/uL (0.8-1.0); MONOCYTES % (AUTO) 7.4 % (1.7-9.3); NEUTROPHILS # (AUTO) 5.1 K/uL (1.8-7.7); NEUTROPHILS % (AUTO) 57.1 % (42.2-75.2); PLATELET COUNT (AUTO) 240 K/uL (140-450); RED BLOOD CELL COUNT(AUTO) 2.19 MIL/uL (4.20-5.40); RED CELL DISTRIBUTION WIDTH 13.9 % (11.6-13.7); WHITE BLOOD COUNT (AUTO) 8.9 K/uL (4.8-10.8)
[2018-08-20 08:22] LABS: HEMOGLOBIN 6.7 g/dL (12.0-16.0)
[2018-08-20] MEDS ORDERED: MAGNESIUM OXIDE 400 MG TAB PO ONE (08:40)
[2018-08-20] MEDS: SENNA 8.6 MG TAB PO SCH ×3 (09:00→17:00)
[2018-08-20] MEDS: POLYETHYLENE GLYCOL 17 GM/PKT PO SCH ×3 (09:00→21:00)
[2018-08-20] MEDS ORDERED: KCL 20 MEQ/WATER INJ PREMIX 100 ML IV SCH (09:00)
[2018-08-20] MEDS: POTASSIUM CHLORIDE 20% 40 MEQ/15 ML UDC PO SCH (09:47)
[2018-08-20] MEDS: ASPIRIN 81 MG TAB.CHEW PO SCH (09:48)
[2018-08-20] MEDS: FUROSEMIDE 20 MG TAB PO SCH (09:48)
[2018-08-20] MEDS: PANTOPRAZOLE 40 MG INJ VIAL IVP SCH (09:48)
[2018-08-20] MEDS: CARVEDILOL 3.125 MG TAB PO SCH ×2 (09:49→20:43)
[2018-08-20] MEDS: BENAZEPRIL 20 MG TAB PO SCH (09:49)
--- NOTE | 2018-08-20 11:30 | NUR ---
1 UNIT PRBC INFUSION STARTED. WILL CONTINUE TO MONITOR PER PROTOCOL. Addendum: 08/20/18 at 1418 by Greg Foster RN PLEASE DISREGARD START TIME ABOVE. ACTUAL START TIME OF 1 UNIT PRBC IS 1230.
[2018-08-20] MEDS: SCOPOLAMINE 1.5 MG/72 HR PATCH TD SCH (11:35)
[2018-08-20] MEDS ORDERED: ACETAMINOPHEN 325 MG TAB PO SCH (12:00)
[2018-08-20] MEDS: INSULIN LISPRO SLIDING SCALE 100 UNITS/ML VIAL SUBQ PRN (13:02)
[2018-08-20] MEDS: POTASSIUM CHLORIDE 10 MEQ TABER PO SCH ×2 (13:02→13:30)
--- NOTE | 2018-08-20 13:03 | NUR ---
PATIENT LYING DOWN IN BED SLEEPING, AROUSABLE BY VOICE. NO DISTRESS NOTED. SCHEDULED MEDICATIONS DUE GIVEN. SAFETY MEASURES IN PLACE, CALL LIGHT WITHIN REACH. WILL CONTINUE TO MONITOR.
[2018-08-20] MEDS ORDERED: FUROSEMIDE 20 MG TAB PO SCH (15:30)
--- NOTE | 2018-08-20 15:30 | NUR ---
PT'S RBC TRANSFUSION DONE. NO TRANSFUSION REACTION, NO S/S OF DISTRESS NOTED. WILL CONTINUE TO MONITOR.
[2018-08-20] MEDS: ONDANSETRON 4 MG/2 ML VIAL IVP PRN (15:57)
[2018-08-20] MEDS ORDERED: POTASSIUM CHLORIDE 40 MEQ, LIDOCAINE 1% 25 MG in NACL 0.9% 250 ML IV SCH (16:00)
--- NOTE | 2018-08-20 16:00 | NUR ---
PT DECLINED TAKING SCHEDULED PO LASIX DUE TO FEELING NAUSEOUS. ADMINISTERED IV ZOFRAN PRN ORDERED. WILL CONTINUE TO MONITOR.
[2018-08-20] MEDS: METOCLOPRAMIDE 10 MG/2 ML INJ VIAL IVP PRN (18:34)
--- NOTE | 2018-08-20 18:40 | NUR ---
POTASSIUM ORAL PO 40 MEQ NOT GIVEN AND WASTED DUE TO PATIENT FEELING NAUSEATED AND CONTINUES TO SAY "WILL TRY LATER WHEN I FEEL BETTER", HOWEVER, UP UNTIL NOW PATIENT CONTINUES TO SAY THE SAME THING AFTER ADMINISTERING ONDANSETRON AND REGLAN. WILL NOTIFY .
--- NOTE | 2018-08-20 18:45 | NUR ---
JOHANNE, CLASSROOM MONITOR - PHONE: [phone], FROM [facility] CALLED AND ASKED ABOUT PATIENT'S NEW CBC. TOLD JOHANNE IT WAS STILL PENDING. PER JOHANNE, THERE IS A ROOM FOR PATIENT IN [facility] ROOM #400, PHONE FOR REPORT [phone]. [facility] TO TAKE PATIENT, PHONE FOR [facility]: [phone]. JOHANNE SAID PATIENT CAN BE DISCHARGED TONIGHT IF CBC ARE OK AND CLEARS. WILL CONTINUE TO MONITOR.
[2018-08-20] MEDS: VANCOMYCIN 1,000 MG VIAL PO SCH (19:06)
--- NOTE | 2018-08-20 19:20 | NUR ---
PT REPORT GIVEN TO RELEASE AND TECHNICAL RECORDS CLERK NURSE AT BEDSIDE. PT ENDORSED IN STABLE CONDITION. NO S/S OF DISTRESS NOTED AT THIS TIME.
--- NOTE | 2018-08-20 19:20 | NUR ---
RECEIVED PT IN STABLE CONDITION FROM AM NURSE. AWAKE,ALERT AND ORIENTED X4. NO SOB NOTED. ON CONTACT ISOLATION FOR + STOOL S DIFF AND HX:ESBL URINE/BLOOD. BEDREST. DUE TO WEAKNESS. BUT NO DISTESS NOTED. HAS TPN INFUISNG WELL ON THE RT INTERNAL JUGULAR TRIPLE LUMEN. . CLEAR AND PATENT ON AL [address] . PL;AN OF CARE DISCUSSED AND VERBALIZED UNDERSTANDING. CALL LIGHT PLACED WITHIN EASY REACH. BED ON LOWEST POSITION. WILL CONTINUE TO MONITOR.
[2018-08-20 19:40] LABS: BASOPHILS # (AUTO) 0.1 K/uL (0.00-0.22); BASOPHILS % (AUTO) 0.5 % (0.0-2.0); EOSINOPHILS # (AUTO) 0.2 K/uL (0-0.4); EOSINOPHILS % (AUTO) 2.1 % (0.0-4.0); HEMATOCRIT 23.8 % (36-48); LYMPHOCYTES # (AUTO) 2.6 K/uL (2.5-16.5); LYMPHOCYTES % (AUTO) 24.6 % (20.5-51.1); MEAN CORPUSCULAR HEMOGLOBIN 30 pg (27-31); MEAN CORPUSCULAR HGB CONC 33 g/dL (33-37); MEAN CORPUSCULAR VOLUME 89.6 fL (80-94); MONOCYTES # (AUTO) 0.8 K/uL (0.8-1.0); MONOCYTES % (AUTO) 7.1 % (1.7-9.3); NEUTROPHILS % (AUTO) 65.7 % (42.2-75.2); PLATELET COUNT (AUTO) 243 K/uL (140-450); RED BLOOD CELL COUNT(AUTO) 2.66 MIL/uL (4.20-5.40); RED CELL DISTRIBUTION WIDTH 14.9 % (11.6-13.7); WHITE BLOOD COUNT (AUTO) 10.7 K/uL (4.8-10.8)
--- NOTE | 2018-08-20 19:45 | NUR ---
BLOOD WAS DRAWN FROM RT IJ CENTRAL LINE FOR REPEAT CBC. WILL FOLLOW UP RESULT.
[2018-08-20] MEDS ORDERED: MAG SULF 2000 MG/WATER PREMIX 50 ML IV SCH (20:00)
--- NOTE | 2018-08-20 20:20 | NUR ---
RESULT OF CBC CAME IN. HGB 8.[address] PITTS .RESIDENT MADE AWARE. WILL DO THE DISCHARGE PAPERS.
--- NOTE | 2018-08-20 20:26 | NUR ---
JOHANNE , FRENCH FOLDER OF [facility] NOTIFIED OF THE RESULT OF LATEST CBC. SHE SIAD TO CALL THE FAMILY SO THAT THEY KNOW THAT [facility] IS THE ONLY PLACED SHE GOT THAT WILL ACCEPT TPN.
--- NOTE | 2018-08-20 20:30 | NUR ---
CENTRAL LINE DRESSING ON THE RT INTERNAL JUGULAR WAS CHANGED .
--- NOTE | 2018-08-20 20:35 | NUR ---
ABLE TO TALKED TO HARPREET HESS, AND MADE HIM AWARE THAT PT IS GOING TO [facility] FOR CONTINUED ANTIBIOTICS AND TPN. HE VERBALIZED UNDERSTANDING.
[2018-08-20] MEDS: HUMAN IV SCH (20:42)
[2018-08-20] MEDS: INSULIN REGULAR IV SCH (20:42)
[2018-08-20] MEDS: MULTIVITAMIN IV SCH (20:42)
[2018-08-20] MEDS: DEXTROSE 50% IV SCH (20:42)
[2018-08-20] MEDS: [UNRECOGNIZED DRUG - OTHER] IV SCH (20:42)
[2018-08-20] MEDS: SIMVASTATIN 20 MG TAB PO SCH (20:43)
[2018-08-20] MEDS: AMITRIPTYLINE 25 MG TAB PO SCH (20:43)
[2018-08-20] MEDS: INSULIN LANTUS 100 UNITS/ML 10 ML VIAL SUBQ SCH (20:44)
--- NOTE | 2018-08-20 21:45 | NUR ---
CALLED [facility] TO TALKED TO SOSA MOSCOSO WHO IS GOING TO RECEIVE PT THERE. REPORT GIVEN .
[2018-08-20] MEDS ORDERED: LACT1CAP72 PO ×2 (22:23→22:26)
[2018-08-20] MEDS ORDERED: VANC125C12 PO ×2 (22:23→22:26)
--- NOTE | 2018-08-20 22:45 | NUR ---
DR. PITTS SAID PT CAN TRANSFER WITH GARNER CATH AND TPN PRESENTLY GOING.
[2018-08-21] VITALS: BP 150/60
[2018-08-21] MEDS: BLOOD GLUCOSE MONITORING 1 DEV DEV MC SCH ×4 (00:05→18:09)
[2018-08-21] MEDS: INSULIN LISPRO SLIDING SCALE 100 UNITS/ML VIAL SUBQ PRN ×4 (00:15→18:10)
[2018-08-21] MEDS: VANCOMYCIN 1,000 MG VIAL PO SCH ×4 (00:22→18:35)
--- NOTE | 2018-08-21 00:30 | NUR ---
I CALLED [facility] AND [facility] TO TALKED TO AFIACAR FERRY MASTER . LET HER KNOW THAT PT WILL BE PICKED UP @0100 . BUT SHE SAID. SHE DIDN'T KNOW THAT PT HAS TPN. SHE SAID THEY DON'T HAVE THE PUMP AT THIS TIME CAN'T ACCEPT THE PT TONIGHT. WILL HAVE DR. PITTS MADE AWARE ABOUT THIS.
--- NOTE | 2018-08-21 00:33 | NUR ---
TALKED TO DR. PITTS AND MADE HER AWARE ABOUT THE PROBLEM THAT [facility] PER AFIA,WATERMELON INSPECTOR SAID THEY DON'T HAVE PUMP FOR THE TPN AT THIS TIME. DR. PITTS SAID OKAY THAT PT STAY DURING THE NIGHT AND WILL HAVE SALES REPRESENTATIVE CAN ARRANGE IN THE MORNING.
--- NOTE | 2018-08-21 00:48 | NUR ---
[facility] CANCELLED THE TRANSPORTATION FOR TRANSFER TONIGHT.
--- NOTE | 2018-08-21 02:00 | NUR ---
MADE ROUNDS. PT ASLEEP .NO S/S DISCOMFORT NOTED.
[2018-08-21 04:57] VITALS: BP 145/67
--- NOTE | 2018-08-21 05:00 | NUR ---
HAD X2 DIARRHEA THIS AM. CLEANED AND KEPT DRY.
--- NOTE | 2018-08-21 05:32 | NUR ---
BLOOD SUGAR CHECKED THIS AM RESULT 173. INSULIN COVERAGE GIVEN.
--- NOTE | 2018-08-21 07:25 | NUR ---
ENDORSED PT IN STABLE CONDITION TO AM NURSE FOR CONTINUITY OF CARE.
--- NOTE | 2018-08-21 07:30 | NUR ---
RECEIVED PT AAOX4. NO SOB NOTED, NO C/O PAIN AT THIS TIME. WITH RT IJ TRIPLE LUMEN CENTRAL PATENT, DRESSING DRY AND INTACT, WITH TPN INFUSING AT 60 MLS/HR. CHEST, DIMINISHED AIR ENTRY TO THE BASES, ABDOMEN SOFT, BOWEL SOUNDS PRESENT. WITH GARNER DRAINING MODERATE AMOUNTS OF CLEAR AI URINE. INSTRUCTED PT TO CALL FOR ASSISTANCE, CALL LIGHT WITHIN REACH. PT VERBALIZED UNDERSTANDING.
[2018-08-21 07:53] LABS: ANION GAP 3.4 (8-16); CREATININE 0.8 mg/dL (0.6-1.3); POTASSIUM 4.4 mmol/L (3.5-5.1)
[2018-08-21 08:00] VITALS: BP 135/64
[2018-08-21 08:04] LABS: MAGNESIUM 2.2 mg/dL (1.8-2.4); PHOSPHORUS 3.1 mg/dL (2.5-4.9)
[2018-08-21 08:35] LABS: HEMATOCRIT 23.9 % (36-48); HEMOGLOBIN 7.9 g/dL (12.0-16.0); MEAN CORPUSCULAR HEMOGLOBIN 30 pg (27-31); MEAN CORPUSCULAR HGB CONC 33 g/dL (33-37); MEAN CORPUSCULAR VOLUME 90.9 fL (80-94); RED BLOOD CELL COUNT(AUTO) 2.63 MIL/uL (4.20-5.40); WHITE BLOOD COUNT (AUTO) 10.8 K/uL (4.8-10.8)
[2018-08-21 08:36] LABS: BASOPHILS % (AUTO) 0.3 % (0.0-2.0); EOSINOPHILS # (AUTO) 0.3 K/uL (0-0.4); EOSINOPHILS % (AUTO) 2.9 % (0.0-4.0); MONOCYTES # (AUTO) 0.9 K/uL (0.8-1.0); NEUTROPHILS # (AUTO) 6.5 K/uL (1.8-7.7); NEUTROPHILS % (AUTO) 60.8 % (42.2-75.2); PLATELET COUNT (AUTO) 263 K/uL (140-450); RED CELL DISTRIBUTION WIDTH 14.1 % (11.6-13.7)
[2018-08-21] MEDS: SENNA 8.6 MG TAB PO SCH ×3 (09:00→17:00)
[2018-08-21] MEDS: PHARMACY COMMENTS MC SCH (09:00)
[2018-08-21] MEDS: POTASSIUM CHLORIDE 20% 40 MEQ/15 ML UDC PO SCH (09:00)
[2018-08-21] MEDS: POLYETHYLENE GLYCOL 17 GM/PKT PO SCH ×2 (09:00→21:58)
[2018-08-21] MEDS: METOCLOPRAMIDE 10 MG/2 ML INJ VIAL IVP PRN (09:55)
[2018-08-21] MEDS: ASPIRIN 81 MG TAB.CHEW PO SCH (09:59)
[2018-08-21] MEDS: PANTOPRAZOLE 40 MG INJ VIAL IVP SCH (09:59)
[2018-08-21] MEDS: FUROSEMIDE 20 MG TAB PO SCH (10:00)
[2018-08-21] MEDS: BENAZEPRIL 20 MG TAB PO SCH (10:00)
[2018-08-21] MEDS: CARVEDILOL 3.125 MG TAB PO SCH ×2 (10:02→21:57)
--- NOTE | 2018-08-21 10:46 | NUR ---
CM NOTE FAXED CONCURRENT REVIEW, ORDER TO TRANSFER TO [facility] FOR CONTINUED TPN, AND LATEST TPN FORMULA TO [facility] [phone] CM WILBERTO PH# [phone] / [phone]. LEFT VM TO [facility] OSWALD LADD PH# [phone]. TALA SWAN AWARE.
--- NOTE | 2018-08-21 10:52 | NUR ---
PLACED CALL TO [facility] AD[facility]. VM LEFT REQUESTING A RETURN PHONE CALL REGARDING DISCHARGE.
--- NOTE | 2018-08-21 11:33 | NUR ---
WILBERTO PRE FABRICATOR FROM [facility] CALLED AND ASKED IF PT HAS BLOOD WORKS THIS MORNING.
--- NOTE | 2018-08-21 11:56 | NUR ---
CM NOTE RECEIVED CALL FROM [facility] OSWALD LADD # [phone] REQUESTING TO FAX TO HER DIRECT FAX# [phone] ORDER TO GO TO SNF FOR TPN, LATEST TPN FORMULA, PICC/CENTRAL LINE NOTES, NUTRITION NOTES, LATEST LAB RESULTS AND CURRENT MEDICATIONS, 'S PROGRESS NOTES. 'S ORDER TO GO TO SNF FOR TPN, LATEST TPN FORMULA, PICC/CENTRAL LINE NOTES, NUTRITION NOTES, LATEST LAB RESULTS AND CURRENT MEDICATIONS, 'S PROGRESS NOTES FAXED TO [facility] OSWALD LADD [phone] # [phone].
[2018-08-21 12:00] VITALS: BP 145/60
--- NOTE | 2018-08-21 12:45 | NUR ---
PT REFUSED TO TAKE VANCO PO, STATED SHE DOES NOT WANT TO TAKE THE MEDICATION IF SHE STILL ON FULL LIQUIDS FOR THE REASON THAT IT WILL HURT HER STOMACH. RISKS AND BENEFITS OF THE MEDICATIONS EXPLAINED TO PT, PT VERBALIZED UNDERSTANDING. DR. METZGER NOTIFIED.
--- NOTE | 2018-08-21 13:22 | NUR ---
OSWALD ROWLEY SPOKE WITH [facility] LADD PH# [phone] TO FOLLOW UP ON THE SNF. PER OSWALD LADD THEY ARE STILL WORKING ON IT AND SHE ALSO STATED THAT PATIENT WILL DEFINITELY BE GOING TO SNF TODAY. Addendum: 08/21/18 at 1329 by Marija Deutsch CM I GAVE OSWALD LADD THE NUMBER TO THE NURSING STATION WHERE PATIENT IS.
--- NOTE | 2018-08-21 13:38 | NUR ---
puree diet tolerated by pt well. no n&v noted.
--- NOTE | 2018-08-21 14:42 | NUR ---
SPOKE WITH GUERRERO AT [facility] AND HE STATED THAT HE DOES NOT KNOW THE ETA OF THE TPN AND PUMP AND THAT WILBERTO [facility] HAS BEEN MANAGING THE PHARMACY NEEDS.
--- NOTE | 2018-08-21 14:46 | NUR ---
PER OSWALD LADD SHE IS STILL WAITING FOR AN ETA FROM THE COMPANY WHO IS DELIVERING THE TPN TO THE SNF AND SHE WILL SET UP TRANSPORT ONCE IT'S READY
[2018-08-21 16:00] VITALS: BP 142/61
[2018-08-21] MEDS ORDERED: DEXTROSE 10% 1,000 ML IV SCH (16:05)
--- NOTE | 2018-08-21 16:11 | NUR ---
SPOKE WITH WILBERTO AKERS AT [facility] AND SHE STATED SHE DID NOT GET INFORMATION SHE REQUESTED EARLIER. FAXED HER CENTRAL LINE REPORT, ORDER FOR TPN DURATION, NUTRITION NOTES AND LABS. INFORMED HER THAT PT WILL NEED AN AMBULANCE TRANSPORT PT WILL TRANSFER ON AN IV OF DW10 PT IS ON TPN AND THAT WOULD REQUIRE CCT SO IF PT ON DW10 WILL REQUIRE ACLS. PER WILBERTO SHE HAD SET UP [facility]. INFORMED HER [facility] IS NON MEDICAL AND PT DOES REQUIRE AMBULANCE.
--- NOTE | 2018-08-21 16:30 | NUR ---
PER WILBERTO'S REQUEST, CENTRAL LINE REPORT, TPN , LAB PER PHARMACY AND DURATION ORDERS FAXED TO [phone], CONFIRMATION ATTACHED TO PT'S CHART. WILBERTO NOTIFIED TEL#[phone], STATED SHE WILL GET IT THRU HER COORDINATOR.
--- NOTE | 2018-08-21 17:53 | NUR ---
GISELL AKERS FROM [facility] (#[phone]) STATED SHE WILL CHECK ALL THE PAPERS WORKS AND WILL GIVE US A CALL FOR THE ETA.
--- NOTE | 2018-08-21 18:00 | NUR ---
PT HAD 1X MODERATE LOOSE YELLOW BROWN STOOLS NOTED THE ENTIRE SHIFT.
--- NOTE | 2018-08-21 19:42 | NUR ---
PT RESTING. NO SOB NOTED. NO SIGNS OF PAIN. ENDORSED TO NEXT SHIFT NURSE FOR CONTINUITY OF CARE.
--- NOTE | 2018-08-21 19:42 | NUR ---
RECEIVED ENDORSEMENT FROM TALA SWAN DAYSHIFT NURSE AT BEDSIDE FOR CONTINUITY OF CARE, PT IN STABLE CONDITION.
[2018-08-21 20:00] VITALS: BP 149/70
[2018-08-21] MEDS: HUMAN IV SCH (20:00)
[2018-08-21] MEDS: DEXTROSE 50% IV SCH (20:00)
[2018-08-21] MEDS: [UNRECOGNIZED DRUG - OTHER] IV SCH (20:00)
[2018-08-21] MEDS: MULTIVITAMIN IV SCH (20:00)
[2018-08-21] MEDS: INSULIN REGULAR IV SCH (20:00)
--- NOTE | 2018-08-21 21:00 | NUR ---
PT IN BED WITH HOB ELEVATED 25%. PT IS A FALL RISK AND HAS ALL FALLS PRECAUTIONS IN PLACE. V/S FOLLOWS T 98.2 P 96 R 18 B/P 149/70 02 99 WITH R/A. PT F/S 138. PT RECEIVED ALL DUE MEDS, COREG, ELAVIL, MIRALAX AND ZOCOR AND LANTUS. PT HAD A BM BROWN AND LOOSELY FORMED X 1 . PT ALSO HAD 700MLS OF YELLOW URINE ALREADY IN URINARY BAG AT THE BEGINNING OF THE SHIFT.PT IS AOX 3 AND HAS NO C/O OF PAIN OR DISTRESS. PT F/S WAS 138 AND PT REQUESTED A PM SNACK WHICH WAS GIVEN TO HER.
--- NOTE | 2018-08-21 21:30 | NUR ---
TPN NOT ADMINISTERED DUE TO PT AWAITING DISCHARGE TO ANOTHER FACILITY, WHICH WILL HANG THIER OWN TPN ONCE PT GETS TRANSFERRED TO NEW FACILITY. RESIDENT , DR. HORN ORDERED D10 RUNNING AT 60MLS /HR WHICH WAS HUNG PER ORDER.
[2018-08-21] MEDS: DEXTROSE 10% 1,000 ML IV SCH (21:50)
[2018-08-21] MEDS: AMITRIPTYLINE 25 MG TAB PO SCH (21:57)
[2018-08-21] MEDS: SIMVASTATIN 20 MG TAB PO SCH (21:58)
[2018-08-21] MEDS: INSULIN LANTUS 100 UNITS/ML 10 ML VIAL SUBQ SCH (22:10)
--- NOTE | 2018-08-21 22:30 | NUR ---
BALCONY WORKER GISELL AKERS FROM [facility] CALLED TO INFORM US THAT PT TPN CANNOT BE DELIVERED UNTIL TOMORROW AND DISCHARGE WILL NEED TO BE DELAYED UNTIL THE MORNING. GISELL AKERS SAID THAT SHE WILL ENDORSE TO DAYTIME BUSINESS INSTRUCTOR TO F/U WITH DISCHARGE TOMORROW. PT MADE AWARE THAT TRANSFER WILL HAPPEN TOMORROW
[2018-08-22] VITALS: BP 151/69
[2018-08-22] MEDS: VANCOMYCIN 1,000 MG VIAL PO SCH ×4 (00:10→18:19)
[2018-08-22] MEDS: BLOOD GLUCOSE MONITORING 1 DEV DEV MC SCH ×4 (00:18→18:09)
--- NOTE | 2018-08-22 00:30 | NUR ---
PT ASLEEP WITH ALL FALLS PRECAUTIONS IN PLACE. PT HAS NO S/S OF PAIN OR DISTRESS NOTED. V/S FOLLOWS T 98.8 P 111 R 18 B/P 151/69 02 96 WITH R/A. PT TOOK ORDERED VANCOMYCIN AND F/S IS 193. PT ATE 100% OF SNACK GIVEN AT HS.
--- NOTE | 2018-08-22 01:10 | NUR ---
REBECCA BIT SHAVER FOR [facility] RETURN CALL REGARDING PATIENT BEING DISCHARGE IN THE MORNING DUE TO TPN WONT BE DELIVERED UNTIL MORNING.
[2018-08-22 04:00] VITALS: BP 136/69
--- NOTE | 2018-08-22 04:00 | NUR ---
PT C/O 6/10 OF PAIN IN NECK, IJ INTACT FLUSHED PATENT WITH OUT PAIN AND D10 RUNNING AT 60MLS/HR . PT GIVEN MORPHINE IVP PRN. PT V/S FOLLOWS T 98.8 P 103 R 18 B/P 139/69 02 97 WITH R/A.
[2018-08-22] MEDS: INSULIN LISPRO SLIDING SCALE 100 UNITS/ML VIAL SUBQ PRN ×2 (06:19→13:31)
--- NOTE | 2018-08-22 07:30 | NUR ---
RECEIVED PT ON BED AAOX4. NO SOB NOTED, NO C/O PAIN AT THIS TIME. WITH RT IJ TRIPLE LUMEN CENTRAL PATENT, DRESSING DRY AND INTACT, WITH D10 INFUSING WELL AT 60 MLS/HR. CHEST, DIMINISHED AIR ENTRY TO THE BASES, ABDOMEN SOFT, BOWEL SOUNDS PRESENT. WITH GARNER DRAINING MODERATE AMOUNTS OF CLEAR AI URINE. INSTRUCTED PT TO CALL FOR ASSISTANCE, CALL LIGHT WITHIN REACH. PT VERBALIZED UNDERSTANDING.
--- NOTE | 2018-08-22 07:30 | NUR ---
GAVE REPORT TO RN DAYSHIFT NURSE AT BEDSIDE FOR CONTINUITY OF CARE, PT IN STABLE CONDITION.
[2018-08-22 08:00] VITALS: BP 144/63
[2018-08-22] MEDS: POLYETHYLENE GLYCOL 17 GM/PKT PO SCH (09:00)
[2018-08-22] MEDS: POTASSIUM CHLORIDE 20% 40 MEQ/15 ML UDC PO SCH (09:00)
[2018-08-22] MEDS: SENNA 8.6 MG TAB PO SCH ×3 (09:00→17:00)
[2018-08-22] MEDS: PHARMACY COMMENTS MC SCH (09:00)
[2018-08-22 09:20] LABS: CREATININE 0.9 mg/dL (0.6-1.3)
[2018-08-22 09:32] LABS: MAGNESIUM 1.9 mg/dL (1.8-2.4); PHOSPHORUS 3.5 mg/dL (2.5-4.9)
[2018-08-22 09:43] LABS: ANION GAP 6.3 (8-16); CARBON DIOXIDE 26.1 mmol/L (21-32); POTASSIUM 4.4 mmol/L (3.5-5.1)
[2018-08-22] MEDS: ASPIRIN 81 MG TAB.CHEW PO SCH (10:25)
[2018-08-22] MEDS: PANTOPRAZOLE 40 MG INJ VIAL IVP SCH (10:25)
[2018-08-22] MEDS: BENAZEPRIL 20 MG TAB PO SCH (10:26)
[2018-08-22] MEDS: FUROSEMIDE 20 MG TAB PO SCH (10:26)
[2018-08-22] MEDS: CARVEDILOL 3.125 MG TAB PO SCH (10:27)
--- NOTE | 2018-08-22 10:36 | NUR ---
CM NOTE OSWALD LADD REQUESTED TO SEND REVIEWS TO HER DIRECT FAX# [phone]. FAXED CONCURRENT REVIEW TO [facility] [phone] OSWALD LADD PH# [phone]. PER OSWALD LDAD, SHE IS STILL WAITING FOR THE ETA OF THE TPN BY [facility] TO THE ACCEPTING SNF AND ONCE SHE HAS IT SHE WILL ARRANGE THE TRANSPORT FOR PATIENT TO GO TO SNF.
--- NOTE | 2018-08-22 11:03 | NUR ---
LARA FROM [facility] CALLED AND SHE SAID THEY WILL DELIVER THE TPN AT AROUND 3 PM TODAY. SHE WANTS TO SPEAK TO THE PATIENT AND WE TRANSFERRED THE CALL.
[2018-08-22] MEDS: METOCLOPRAMIDE 10 MG/2 ML INJ VIAL IVP PRN (13:40)
[2018-08-22] MEDS: DEXTROSE 10% 1,000 ML IV SCH (13:43)
[2018-08-22 14:00] VITALS: BP 133/65
--- NOTE | 2018-08-22 15:00 | NUR ---
CHAVEZ FROM [facility] CALLED IN BEHALF OF WILBERTO AND STATED THAT PT WILL BE PICKED UP BY LORI SANCHEZ 5PM.
--- NOTE | 2018-08-22 16:00 | NUR ---
REPORT GIVEN TO JAMIR GARNER RN AT [facility]. PT IS GOING TO ROOM 210-B. PT'S HARPREET AT THE BEDSIDE MADE AWARE OF THE RECEPTION SPECIALIST TIME.
--- NOTE | 2018-08-22 18:00 | NUR ---
ROLLER MACHINE OPERATOR NURSE KATHRYN CALLED [facility]SP[facility] TO FOLLOW UP WITH THE FABRIC SEPARATOR OPERATOR. PER [facility], THEY HAVE A LOT OF 911 CALLS RIGHT NOW, THEY WILL FABRIC SEPARATOR OPERATOR PT SOON POSSIBLE.
--- NOTE | 2018-08-22 19:15 | NUR ---
PT AWAKE, NO SOB NOTED. NO COMPLAINTS MADE. ENDORSED TO NEXT SHIFT NURSE FOR CONTINUITY OF CARE.
--- NOTE | 2018-08-22 19:20 | NUR ---
RECEIVED REPORT FROM DAY SHIFT RN, FOR CONTINUITY OF CARE. PT IS A/OX4, ON ROOM AIR, TURKISH SPEAKING. PT IS ABLE TO MAKE NEEDS KNOWN, ABLE TO FOLLOW COMMANDS. PT BREATHS EQUAL AND UNLABORED. PT HAS SKIN IS INTACT. PT AMBULATES WITH ASSIST. PT HAS A RIJ INFUSING D10 AT 60ML/HR, ASYMPTOMATIC AND INTACT. DISCUSSED PLAN OF CARE WITH PT, PT VERBALIZED UNDERSTANDING. PT STABLE, NO SIGNS OF DISTRESS NOTED AT THIS TIME. BED IN LOWEST POSITION, BED ALARM ON. CALL LIGHT WITHIN REACH, WILL CONTINUE TO MONITOR.
--- NOTE | 2018-08-22 19:25 | NUR ---
[facility] GOT HERE AND DID NOT HAVE A NURSE OR IV PUMP TO CONTINUE D10 ON ROUTE. TRAN[facility]TERS SAID THEY'D CALL THEIR BOSS AND FIND OUT.
--- NOTE | 2018-08-22 19:35 | NUR ---
HAYLEE FROM [facility] CALLED AND STATED THAT THEIR STAFF CAN HANDLE PT'S D10 60 MLS/HR INFUSION EN ROUTE TO THE SNF AND DOES NOT NEED A NURSE. ENDORSED TO MARGE-SOSA TO CONTINUE WITH THE DISCHARGE PROCESS.
--- NOTE | 2018-08-22 19:40 | NUR ---
GAVE REPORT TO [facility]TER[facility]. DISCHARGE EDUCATION PROVIDED TO PT AND PT SIGNED ALL APPROPRIATE FORMS. PT GIVEN OPPORTUNITY TO HAVE QUESTIONS ANSWERED. TELE MONITOR REMOVED. PT LEFT UNIT IN [facility] ACCOMPANIED BY [facility] STAFF. PT IN STABLE CONDITION.
== END 2018-08-22 19:40 | DRG 720 ==
LOC: MED 03:10 → MTU 07:40 → UNDODISIN 08-16 14:40
PROVIDERS: ADMIT General Practice; ATTEND General Practice
PROC: 0DJD8ZZ Inspection of Lower Intestinal Tract, Via Natural or Artificial Opening Endoscopic (ICD-10-PCS; 2018-08-15)
PROC: 02HV33Z Insertion of Infusion Device into Superior Vena Cava, Percutaneous Approach (ICD-10-PCS; principal; 2018-08-16)
PROC: 30233N1 Transfusion of Nonautologous Red Blood Cells into Peripheral Vein, Percutaneous Approach (ICD-10-PCS; 2018-08-20)
DX: A41.9 Sepsis, unspecified organism (principal); N17.0 Acute kidney failure with tubular necrosis; I50.43 Acute on chronic combined systolic (congestive) and diastolic (congestive) heart failure; E43 Unspecified severe protein-calorie malnutrition; K31.84 Gastroparesis; A04.72 Enterocolitis due to Clostridium difficile, not specified as recurrent; E11.43 Type 2 diabetes mellitus with diabetic autonomic (poly)neuropathy; E83.39 Other disorders of phosphorus metabolism; E11.22 Type 2 diabetes mellitus with diabetic chronic kidney disease; E11.65 Type 2 diabetes mellitus with hyperglycemia; R65.20 Severe sepsis without septic shock; I10 Essential (primary) hypertension; E78.1 Pure hyperglyceridemia; B95.2 Enterococcus as the cause of diseases classified elsewhere; B96.1 Klebsiella pneumoniae [K. pneumoniae] as the cause of diseases classified elsewhere; E78.5 Hyperlipidemia, unspecified; F32.9 Major depressive disorder, single episode, unspecified; F17.210 Nicotine dependence, cigarettes, uncomplicated; K51.00 Ulcerative (chronic) pancolitis without complications; E87.1 Hypo-osmolality and hyponatremia; D64.9 Anemia, unspecified; G89.29 Other chronic pain; I13.0 Hypertensive heart and chronic kidney disease with heart failure and stage 1 through stage 4 chronic kidney disease, or unspecified chronic kidney disease; E87.6 Hypokalemia; I50.9 Heart failure, unspecified; N18.3 Chronic kidney disease, stage 3 (moderate); N30.90 Cystitis, unspecified without hematuria; R62.7 Adult failure to thrive; Z87.11 Personal history of peptic ulcer disease; Z68.1 Body mass index [BMI] 19.9 or less, adult; Z87.440 Personal history of urinary (tract) infections; Z88.0 Allergy status to penicillin; Z90.49 Acquired absence of other specified parts of digestive tract; Z90.710 Acquired absence of both cervix and uterus; Z71.6 Tobacco abuse counseling; Z91.19 Patient's noncompliance with other medical treatment and regimen
CPT/HCPCS: 36415; 71045; 74018; 76770; 80048; 80053; 80202; 80305; 81001; 82040; 82272; 82948; 83036; 83605; 83690; 83735; 83880; 84100; 84439; 84443; 84484; 85025; 85610; 85730; 86886; 86900; 86901; 86920; 87040; 87070; 87081; 87086; 87177; 87186; 96361; 96365; 96368; 96375; 99291; A9153; C9113; J0360; J0696; J1170; J1200; J1642; J1815; J1956; J2001; J2060; J2185; J2250; J2270; J2405; J2550; J2590; J2765; J3010; J3370; J3475; J3480; J3490; J7030; J7042; J7060; P9016; Q0092; Q0163

== ENCOUNTER 2018-12-01 14:11 | Emergency (ER) | payer OTHER ==
[~2018-12-01] VITALS: Ht 149.9 cm; Wt 48.5 kg
[~2018-12-01 14:11] MED LIST changes: -ASCO1CAP75 PO; +LACT1CAP72 PO; -MERO500P2 IV; +VANC125C12 PO
[2018-12-01 14:18] VITALS: BP 157/84
[2018-12-01 16:26] LABS: BASOPHILS # (AUTO) 0.1 K/uL (0.00-0.22); BASOPHILS % (AUTO) 0.8 % (0.0-2.0); EOSINOPHILS # (AUTO) 0.1 K/uL (0-0.4); EOSINOPHILS % (AUTO) 1.5 % (0.0-4.0); HEMATOCRIT 27.9 % (36-48); HEMOGLOBIN 8.7 g/dL (12.0-16.0); LYMPHOCYTES # (AUTO) 1.7 K/uL (2.5-16.5); LYMPHOCYTES % (AUTO) 20.5 % (20.5-51.1); MEAN CORPUSCULAR HEMOGLOBIN 30 pg (27-31); MEAN CORPUSCULAR HGB CONC 31 g/dL (33-37); MEAN CORPUSCULAR VOLUME 94.8 fL (80-94); MONOCYTES # (AUTO) 0.3 K/uL (0.8-1.0); MONOCYTES % (AUTO) 4.1 % (1.7-9.3); NEUTROPHILS # (AUTO) 5.9 K/uL (1.8-7.7); NEUTROPHILS % (AUTO) 73.1 % (42.2-75.2); PLATELET COUNT (AUTO) 191 K/uL (140-450); RED BLOOD CELL COUNT(AUTO) 2.94 MIL/uL (4.20-5.40); RED CELL DISTRIBUTION WIDTH 13.2 % (11.6-13.7); WHITE BLOOD COUNT (AUTO) 8.1 K/uL (4.8-10.8)
[2018-12-01 16:40] LABS: PROTHROMBIN TIME 9.9 secs (10.8-13.4)
[2018-12-01 16:43] LABS: POTASSIUM 4.9 mmol/L (3.5-5.1)
[2018-12-01 16:45] LABS: ANION GAP 11.9 (8-16)
[2018-12-01 16:46] LABS: CREATININE 1.7 mg/dL (0.6-1.3)
[2018-12-01 17:32] LABS: ALBUMIN 2.6 g/dL (3.4-5.0); TOTAL BILIRUBIN 0.1 mg/dL (0.0-1.0)
[2018-12-01 18:43] VITALS: BP 132/82
== END 2018-12-01 18:44 | disposition home or self-care (01) ==
LOC: MED 14:11
DX: K59.00 Constipation, unspecified (principal); J18.9 Pneumonia, unspecified organism; R07.9 Chest pain, unspecified; E11.9 Type 2 diabetes mellitus without complications; I10 Essential (primary) hypertension; N28.9 Disorder of kidney and ureter, unspecified; D64.9 Anemia, unspecified; Z88.0 Allergy status to penicillin; Z88.5 Allergy status to narcotic agent; Z79.82 Long term (current) use of aspirin; Z79.4 Long term (current) use of insulin; Z79.2 Long term (current) use of antibiotics; Z79.899 Other long term (current) drug therapy
CPT/HCPCS: 36415; 71045; 80053; 84484; 85025; 85610; 85730; 86886; 86900; 86901; 93005; 99284; Q0092

== ENCOUNTER 2019-07-31 12:24 | Emergency (ER) | payer OTHER ==
[~2019-07-31] VITALS: Ht 134.6 cm; Wt 44.5 kg
[~2019-07-31 12:24] MED LIST changes: +ASPI-1718 PO; -ASPI81CT89 PO
[2019-07-31 12:32] VITALS: BP 162/85
--- NOTE | 2019-07-31 12:46 | NUR ---
PT AMBULATED TO ER BED 7
--- NOTE | 2019-07-31 13:10 | NUR ---
pt bib self with c/o left eye pain x 2 days with nausea and vomiting----unable to open lft eye due to pain. pt is s/p glaucoma surgery os x2 wks ago in [place]. per pt, called the sx center , not responsive to the call. pt states pain at lft eye 10/10 at this time. running water for the lft eye, has difficulty in opening and has redness around the sclere region. pt states to have pain back of head at lft side.pt states being seen by surgeon 07/26/2019 but has not been able to contact anyone in office since hx--dm, glaucoma, renal failure rx---ofloxacin gtt qid, combigan gtt bid
--- NOTE | 2019-07-31 13:43 | NUR ---
Patient being evaluated by DR PAULINO at bedside.
[2019-07-31] MEDS: ONDANSETRON 4 MG ODT PO ONE (13:53)
[2019-07-31] MEDS: MORPHINE SULFATE 4 MG/ML SYR IM ONE (14:19)
--- NOTE | 2019-07-31 14:21 | NUR ---
pt medicated with pain meds. resting comfortably in her bed. pt connected to monitor . will reassess pain again.
--- NOTE | 2019-07-31 14:38 | NUR ---
checked on pt. pain 5/10, resting comfortably in her bed.
[2019-07-31] MEDS: TIMOLOL OP 0.5% 5 ML BTL OP ONE (15:34)
[2019-07-31] MEDS: acetaZOLAMIDE 250 MG TAB PO SCH (17:19)
[2019-07-31 17:25] VITALS: BP 145/55
--- NOTE | 2019-07-31 17:25 | NUR ---
Patient discharged with v/s stable. Written and verbal after care instructions given and explained. Patient alert, oriented and verbalized understanding of instructions. Wheel Chair Assisted with steady gait. All questions addressed prior to discharge. ID band removed. Patient advised to follow up with PMD. Rx of norco 5-325 mg , diamox 250 mg and zofran odt 40 mg given. Patient educated on indication of medication including possible reaction and side effects. Opportunity to ask questions provided and answered.
== END 2019-07-31 17:25 | disposition home or self-care (01) ==
LOC: MED 12:24
DX: E11.319 Type 2 diabetes mellitus with unspecified diabetic retinopathy without macular edema (principal); I10 Essential (primary) hypertension; E11.9 Type 2 diabetes mellitus without complications; F17.210 Nicotine dependence, cigarettes, uncomplicated; Z86.79 Personal history of other diseases of the circulatory system; Z88.0 Allergy status to penicillin; Z88.6 Allergy status to analgesic agent; Z79.1 Long term (current) use of non-steroidal anti-inflammatories (NSAID); Z79.82 Long term (current) use of aspirin; Z87.448 Personal history of other diseases of urinary system; Z98.890 Other specified postprocedural states
CPT/HCPCS: 82948; 96372; 99284; J2270; Q0162

== ENCOUNTER 2020-12-27 02:20 | Inpatient (IN) | payer OTHER, SELFPAY ==
[~2020-12-27] VITALS: Ht 142.2 cm; Wt 43.5 kg
[~2020-12-27 02:20] MED LIST changes: -ASPI-1718 PO; +ASPI-1822 PO
[2020-12-27 02:26] VITALS: BP 138/71
--- NOTE | 2020-12-27 02:26 | NUR ---
to bed via w/c
[2020-12-27] MEDS ORDERED: diphenhydrAMINE 50 MG CAP PO ONE (02:35)
--- NOTE | 2020-12-27 02:49 | NUR ---
60 Y/O FEMALE BIB SELF FOR C/O RASH/ITCHINESS POST TAKING OTC NAUSEA MEDICATION. PT WAS NOTED WITH REDNESS THROUGHOUT THE BACK AND IN INNER THIGHS. DENIED HAVING ANY FEELINGS OF SOB. NO C/O CHEST PAIN OR DISCOMFORT AT THIS TIME. AMBULATED FROM W/C TO BED WITH STEADY GAIT. BED LOCKED AND IN LOWEST POSITION. PMHX: KIDNEY FAILURE, ANXIETY AND GLAUCOMA ALLX: PCN AND HYDROCODONE
[2020-12-27 03:08] LABS: BASOPHILS % (AUTO) 0.2 % (0.0-2.0); EOSINOPHILS % (AUTO) 0.2 % (0.0-4.0); HEMATOCRIT 27.8 % (36-48); HEMOGLOBIN 8.9 g/dL (12.0-16.0); LYMPHOCYTES # (AUTO) 1.4 K/uL (2.5-16.5); LYMPHOCYTES % (AUTO) 14.8 % (20.5-51.1); MEAN CORPUSCULAR HEMOGLOBIN 31 pg (27-31); MEAN CORPUSCULAR HGB CONC 32 g/dL (33-37); MONOCYTES # (AUTO) 0.5 K/uL (0.8-1.0); MONOCYTES % (AUTO) 5.4 % (1.7-9.3); NEUTROPHILS # (AUTO) 7.6 K/uL (1.8-7.7); NEUTROPHILS % (AUTO) 79.4 % (42.2-75.2); PLATELET COUNT (AUTO) 203 K/uL (140-450); RED BLOOD CELL COUNT(AUTO) 2.93 MIL/uL (4.20-5.40); RED CELL DISTRIBUTION WIDTH 13.4 % (11.6-13.7); WHITE BLOOD COUNT (AUTO) 9.6 K/uL (4.8-10.8)
--- NOTE | 2020-12-27 03:15 | NUR ---
NOTIFIED DR. WALTERS OF PT'S BP: 184/78. GAVE NO NEW ORDERS AT THIS TIME.
--- NOTE | 2020-12-27 03:25 | NUR ---
CRITICAL LAB--- K+ 6.[address] WALTERS GAVE NO NEW ORDERS.
[2020-12-27 03:29] LABS: ALBUMIN 3.3 g/dL (3.4-5.0); ANION GAP 19.3 (8-16); CARBON DIOXIDE 16.9 mmol/L (21-32); CREATININE 3.8 mg/dL (0.6-1.3)
[2020-12-27 03:43] LABS: TOTAL BILIRUBIN 0.2 mg/dL (0.0-1.0)
[2020-12-27 03:44] LABS: POTASSIUM 6.2 mmol/L (3.5-5.1)
[2020-12-27] MEDS ORDERED: INSULIN REGULAR, HUMAN 100 UNIT/ML VIAL IVP ONE (03:50)
[2020-12-27] MEDS ORDERED: ALBUTEROL 0.083% 2.5 MG/3 ML NEBU INH ONE (03:50)
[2020-12-27] MEDS ORDERED: DEXTROSE 50% 50 ML SYR IVP ONE (03:50)
[2020-12-27] MEDS ORDERED: SODIUM ZIRCONIUM CYCLOSILICATE 10 GM POWD.PACK PO ONE (03:50)
[2020-12-27] MEDS ORDERED: FUROSEMIDE 40 MG/4 ML VIAL IVP ONE (03:50)
--- NOTE | 2020-12-27 04:02 | NUR ---
22 G IV SITE ESTABLISHED BY ER MD DR. WALTERS TO LT AC VIA US GUIDED. IV SITE WAS PATENT FLUSHED WITH 10 ML OF 0.9% NS. BLOOD DRAW COLLECTED.
--- NOTE | 2020-12-27 04:19 | NUR ---
Respiratory Therapist at bedside for respiratory intervention. Patient tolerating well.
--- NOTE | 2020-12-27 05:19 | NUR ---
ARABELLA SWAB COLLECTED AND SENT TO LAB.
--- NOTE | 2020-12-27 05:25 | NUR ---
RECHECK ACCUCHECK AT 138.
--- NOTE | 2020-12-27 06:47 | NUR ---
PT LAYING IN BED IN NO ACUTE DISTRESS NOTED BREATHING EVEN AND UNLABORED EVIDENCE BY RISE AND FALL OF CHEST WALL. DENIED HAVING ANY PAIN OR DISCOMFORT.
--- NOTE | 2020-12-27 06:55 | NUR ---
Víctor helton in ED - 12/27/20 at 0655 by NISHANT PT TAKEN TO CT VIA W/C ASSIST.
--- NOTE | 2020-12-27 07:12 | NUR ---
REPORT GIVEN TO MAYTE SWAN FOR CONTINUITY OF CARE.
[2020-12-27] MEDS ORDERED: DEXTROSE 50% 50 ML SYR IVP PRN (07:35)
[2020-12-27] MEDS ORDERED: NACL 0.9% 1,000 ML IV SCH (07:35)
[2020-12-27] MEDS ORDERED: METOCLOPRAMIDE 10 MG/2 ML INJ VIAL IVP ONE (07:35)
[2020-12-27] MEDS ORDERED: MORPHINE SULFATE 2 MG/ML SYR IVP PRN (07:35)
[2020-12-27] MEDS ORDERED: KETOROLAC 30 MG/ML VIAL IVP ONE (07:40)
[2020-12-27] MEDS ORDERED: ONDANSETRON 4 MG/2 ML VIAL IVP ONE (07:40)
--- NOTE | 2020-12-27 08:18 | NUR ---
Patient will be admitted to care of SHAIKH ALEXANDER. Admited to [facility]. Will go to room 111A. Belongings list completed. Report to SOLIS SWAN.
[2020-12-27 08:30] VITALS: BP 143/70
--- NOTE | 2020-12-27 08:30 | NUR ---
PATIENT ARRIVED FROM ER VIA GURNEY. TRANSFERRED TO [facility] BED SAFELY. IN STABLE CONDITION. ORIENTED PATIENT TO ROOM AND CALL LIGHT. SAFETY MEASURES IN PLACE, CALL LIGHT WITHIN REACH. WILL CONTINUE TO MONITOR.
--- NOTE | 2020-12-27 09:34 | NUR ---
PATIENT HAS BEEN SCREENED AND CATEGORIZED LOW NUTRITION RISK. PATIENT WILL BE SEEN WITHIN 7 DAYS OF ADMISSION. 01/02/[address]
[2020-12-27] MEDS ORDERED: carvediloL 3.125 MG TAB PO SCH (12:00)
[2020-12-27] MEDS: INSULIN LISPRO SLIDING SCALE 100 UNITS/ML VIAL SUBQ PRN ×2 (12:29→22:03)
[2020-12-27] MEDS: BLOOD GLUCOSE MONITORING 1 DEV DEV FS SCH ×3 (12:29→22:00)
--- NOTE | 2020-12-27 12:30 | NUR ---
SCHEDULED MEDICATIONS DUE GIVEN. WILL CONTINUE TO MONITOR.
[2020-12-27 12:43] LABS: BASOPHILS % (AUTO) 0.2 % (0.0-2.0); EOSINOPHILS % (AUTO) 0.5 % (0.0-4.0); HEMATOCRIT 23.2 % (36-48); HEMOGLOBIN 7.5 g/dL (12.0-16.0); LYMPHOCYTES # (AUTO) 1.3 K/uL (2.5-16.5); LYMPHOCYTES % (AUTO) 18.4 % (20.5-51.1); MEAN CORPUSCULAR HEMOGLOBIN 30 pg (27-31); MEAN CORPUSCULAR HGB CONC 32 g/dL (33-37); MEAN CORPUSCULAR VOLUME 93.6 fL (80-94); MONOCYTES # (AUTO) 0.4 K/uL (0.8-1.0); MONOCYTES % (AUTO) 5.5 % (1.7-9.3); NEUTROPHILS # (AUTO) 5.1 K/uL (1.8-7.7); NEUTROPHILS % (AUTO) 75.4 % (42.2-75.2); PLATELET COUNT (AUTO) 166 K/uL (140-450); RED BLOOD CELL COUNT(AUTO) 2.47 MIL/uL (4.20-5.40); RED CELL DISTRIBUTION WIDTH 12.7 % (11.6-13.7); WHITE BLOOD COUNT (AUTO) 6.8 K/uL (4.8-10.8)
[2020-12-27 12:58] LABS: CARBON DIOXIDE 20.3 mmol/L (21-32); CREATININE 3.9 mg/dL (0.6-1.3); POTASSIUM 5.3 mmol/L (3.5-5.1)
[2020-12-27] MEDS: SODIUM BICARBONATE 8.4% 50 MEQ in NACL 0.45% 1,000 ML IV SCH ×2 (13:10→23:50)
[2020-12-27] MEDS: ACETAMINOPHEN 325 MG TAB PO PRN (14:21)
[2020-12-27 16:00] VITALS: BP 156/81
[2020-12-27] MEDS: HYDROXYZINE HYDROCHLORIDE 10 MG TAB PO PRN (18:07)
[2020-12-27] MEDS: carvediloL 3.125 MG TAB PO SCH (18:07)
--- NOTE | 2020-12-27 18:07 | NUR ---
PATIENT COMPLAINS OF SEVERE ITCHING. NOTIFIED DR. AMES. PER DR. AMES, GIVE HYDROXYZINE PO. SCHEDULED MEDICATIONS DUE GIVEN. WILL CONTINUE TO MONITOR.
--- NOTE | 2020-12-27 19:19 | NUR ---
GAVE REPORT TO SECURITY ATTENDANT NURSE FOR CONTINUITY OF CARE. PATIENT IN STABLE CONDITION.
[2020-12-27 19:51] VITALS: BP 120/50
[2020-12-27] MEDS ORDERED: diphenhydrAMINE 50 MG/ML VIAL IVP SCH (22:50)
[2020-12-27] MEDS: ONDANSETRON 4 MG/2 ML VIAL IVP PRN (23:50)
[2020-12-27 23:59] VITALS: BP 166/80
[2020-12-28 04:40] VITALS: BP 158/69
[2020-12-28] MEDS: ONDANSETRON 4 MG/2 ML VIAL IVP PRN (05:48)
[2020-12-28] MEDS: HYDROXYZINE HYDROCHLORIDE 10 MG TAB PO PRN ×3 (05:48→20:58)
[2020-12-28] MEDS: ACETAMINOPHEN 325 MG TAB PO PRN ×2 (05:55→20:57)
[2020-12-28] MEDS: BLOOD GLUCOSE MONITORING 1 DEV DEV FS SCH ×4 (06:02→21:00)
[2020-12-28 07:28] LABS: EOSINOPHILS % (AUTO) 0.4 % (0.0-4.0); HEMATOCRIT 24.3 % (36-48); HEMOGLOBIN 8.2 g/dL (12.0-16.0); LYMPHOCYTES # (AUTO) 0.7 K/uL (2.5-16.5); LYMPHOCYTES % (AUTO) 7.8 % (20.5-51.1); MEAN CORPUSCULAR HEMOGLOBIN 32 pg (27-31); MEAN CORPUSCULAR HGB CONC 34 g/dL (33-37); MEAN CORPUSCULAR VOLUME 93.5 fL (80-94); MONOCYTES # (AUTO) 0.3 K/uL (0.8-1.0); MONOCYTES % (AUTO) 2.7 % (1.7-9.3); NEUTROPHILS # (AUTO) 8.4 K/uL (1.8-7.7); NEUTROPHILS % (AUTO) 89.1 % (42.2-75.2); PLATELET COUNT (AUTO) 161 K/uL (140-450); WHITE BLOOD COUNT (AUTO) 9.4 K/uL (4.8-10.8)
[2020-12-28 07:36] LABS: ANION GAP 15.9 (8-16); CREATININE 3.9 mg/dL (0.6-1.3); POTASSIUM 4.9 mmol/L (3.5-5.1)
[2020-12-28 08:00] VITALS: BP 125/59
--- NOTE | 2020-12-28 08:00 | NUR ---
PATIENT COMPLAINS OF GENERALIZED ITCHING. WHEALS PRESENT THROUGHOUT BODY. APPLIED BENADRYL/ZINC OINTMENT TO AFFECTED AREAS PER MD ORDERS. WILL CONTINUE TO MONITOR.
[2020-12-28] MEDS: DIPHENHYDRAMINE HCL/ZINC ACET 28 GM TUBE TP PRN ×2 (08:13→23:39)
[2020-12-28] MEDS: carvediloL 3.125 MG TAB PO SCH ×2 (09:34→16:40)
[2020-12-28] MEDS: PANTOPRAZOLE 40 MG TABEC PO SCH (09:35)
--- NOTE | 2020-12-28 09:43 | NUR ---
PATIENT COMPLAINS OF ITCHING. SCHEDULED MEDICATIONS DUE GIVEN. BENADRYL PO GIVEN. WILL CONTINUE TO MONITOR.
[2020-12-28] MEDS: SODIUM BICARBONATE 8.4% 50 MEQ in NACL 0.45% 1,000 ML IV SCH ×2 (10:10→21:00)
[2020-12-28] MEDS: diphenhydrAMINE 50 MG/ML VIAL IVP PRN ×3 (10:32→22:41)
--- NOTE | 2020-12-28 11:57 | NUR ---
PATIENT COMPLAINS OF GENERALIZED ITCHING, HYDROXYZINE PO GIVEN AT THIS TIME. WILL CONTINUE TO MONITOR.
[2020-12-28 16:00] VITALS: BP 141/50
[2020-12-28] MEDS: INSULIN LISPRO SLIDING SCALE 100 UNITS/ML VIAL SUBQ PRN (16:40)
--- NOTE | 2020-12-28 16:41 | NUR ---
SCHEDULED MEDICATIONS DUE GIVEN. WILL CONTINUE TO MONITOR.
--- NOTE | 2020-12-28 18:00 | NUR ---
PATIENT LYING DOWN IN BED SLEEPING, AROUSABLE BY VOICE. WILL CONTINUE TO MONITOR.
--- NOTE | 2020-12-28 19:31 | NUR ---
GAVE REPORT TO SECURITY SYSTEMS ENGINEER NURSE FOR CONTINUITY OF CARE. PATIENT IN STABLE CONDITION.
[2020-12-28 21:00] VITALS: BP 132/76
[2020-12-29 04:38] VITALS: BP 162/70
[2020-12-29] MEDS: diphenhydrAMINE 50 MG/ML VIAL IVP PRN (05:02)
--- NOTE | 2020-12-29 05:55 | NUR ---
PT MAINTAINED O2 SATURATION ABOVE 95% ON O2 2L NC DURING SHIFT. PT STILL GETS TACHYPNEIC/SOB WITH EXERTION OR ACTIVITY. PT CURRENTLY USING BSC TO VOID. INCENTIVE SPIROMETER AT BEDSIDE AND PT PERFORMING Q 1 HR WHILE AWAKE. TITRATED O2 DOWN TO 1.5L VIA NC @ 0530. WILL REASSESS O2 SATURATION AT CHANGE OF SHIFT TO ASSESS FOR TOLERANCE. Addendum: 12/29/20 at 0603 by Agency 03 SOSA SWAN DISREGARD ABOVE NOTE. CHARTED IN ERROR ON WRONG PATIENT. WM
--- NOTE | 2020-12-29 06:04 | NUR ---
PT NOTED TO HAVE INCREASED ANXIETY DURING SHIFT DUE TO THE NATURE OF DISEASE PROCESS. PT STILL C/O OF SEVERE PRURITUS WITH SUBSEQUENT SCRATCHING WITH ONLY MINOR RELIEF OBTAINED FROM BENADRYL IVP AND PO ATARAX Q 6HRS. TOPICAL BENADRYL APPLIED WITH SOME NOTED MILD DECREASE IN HIVES TO BLE. PT IS TRENDING A LOW GRADE TEMPERATURE. PENDING PHOSPHORUS LEVEL THIS AM PER MD ORDER. WILL ENDORSE TO DAYSHIFT.
[2020-12-29] MEDS: BLOOD GLUCOSE MONITORING 1 DEV DEV FS SCH ×5 (06:18→21:25)
--- NOTE | 2020-12-29 07:30 | NUR ---
REC'D REPORT FROM CERTIFIED MEDICATION AIDE NURSE, PT EXHIBITING INCREASED ITCHING, SCRATCHING VANNESA. EXTREMITIES RIGOROUSLY, NIGHT NURSE APPLIED CREAM, PT A/Ox1, KNOWS HER NAME, , DOES NOT KNOW WHERE SHE IS, I ORIENTED PT TO HER WHEREABOUTS , PT REMAINS CONFUSED. WILL CONTINUE TO MONITOR FOR ITCHINESS AND LOC. PT STABLE
[2020-12-29] MEDS: carvediloL 3.125 MG TAB PO SCH ×2 (08:00→17:32)
[2020-12-29] MEDS: PANTOPRAZOLE 40 MG TABEC PO SCH (08:28)
--- NOTE | 2020-12-29 08:30 | NUR ---
ADMINISTERED MEDICATION PER MD ORDER, PT DIASTOLIC PRESSURE TOO LOW FOR BB, HELD CARVEDILOL. PT REMAINS CONFUSED, ATTEMPTS TO REMOVE GOWN STATING A LITTLE BOY TOLD HER TO. WILL CONTINUE TO MONITOR.
[2020-12-29 09:08] LABS: BASOPHILS % (AUTO) 0.1 % (0.0-2.0); EOSINOPHILS % (AUTO) 0.3 % (0.0-4.0); HEMATOCRIT 22.9 % (36-48); HEMOGLOBIN 7.6 g/dL (12.0-16.0); LYMPHOCYTES # (AUTO) 0.8 K/uL (2.5-16.5); LYMPHOCYTES % (AUTO) 12.4 % (20.5-51.1); MEAN CORPUSCULAR HEMOGLOBIN 31 pg (27-31); MEAN CORPUSCULAR HGB CONC 33 g/dL (33-37); MEAN CORPUSCULAR VOLUME 93.2 fL (80-94); MONOCYTES # (AUTO) 0.1 K/uL (0.8-1.0); MONOCYTES % (AUTO) 2.2 % (1.7-9.3); NEUTROPHILS # (AUTO) 5.5 K/uL (1.8-7.7); PLATELET COUNT (AUTO) 153 K/uL (140-450); RED BLOOD CELL COUNT(AUTO) 2.46 MIL/uL (4.20-5.40); WHITE BLOOD COUNT (AUTO) 6.5 K/uL (4.8-10.8)
[2020-12-29 09:25] LABS: CARBON DIOXIDE 19.6 mmol/L (21-32); POTASSIUM 4.6 mmol/L (3.5-5.1)
[2020-12-29 09:27] LABS: CREATININE 4.3 mg/dL (0.6-1.3)
--- NOTE | 2020-12-29 11:22 | NUR ---
SOCIAL WORK NOTE: Patient's Orientation Unable To Assess Information Provided By HARPREET YEPEZAREZ - Comments SW WAS UNABLE TO MEET PATIENT AT BEDSIDE. SW COMPLETED ASSESSMENT WITH PATIENT'S . Chef Manager, Realtionship and Phone Number HARPREET HESS [phone] Healthcare Power of Group President No Does Patient Have a POLST No Identifying Problems No Social Work Triggers Is A Social Work Consult Needed No Mandate Report Filed No Explanation Of Identifying Problems PATIENT IS A 60-YEAR-OLD MALE ADMITTED FOR ACUTE KIDNEY INJURY. PATIENT HAS PMHX OF CKD, ANEMIA, AND GLAUCOMA. Admitted From Home Pre-Admission Level Of Functioning Status Assist With ADL Level Of Functioning Comment PER , PATIENT RECEIVES ASSISTANCE BATHING AND PREPARING MEALS, BUT IS ABLE TO COMPLETE SOME ADLS WITH USE OF WALKER. Prior Resources/Services Used In Last 12 Months No Prior Resources Used Prior DME Walker Dialysis Comments N/A Living Situation Apartment Lives With Family Patient Had Caregiver No Home Support No Caregiver Issues Financial Issues No Known Financial Issue Referral To The Financial Counselor Needed No Factors/Needs No D/C Needs Identified Pt/Rep Participated In Discharge Plan Yes Patient/Family Agress With Discharge Plan Yes Discharge Plan Comments TENTATIVE DISCHARGE PLAN IS FOR PATIENT TO RETURN HOME. DC Plan Status Initiated
--- NOTE | 2020-12-29 11:55 | NUR ---
DC PLANNIN YRS OLD MALE PATIENT WAS ADMITTED FROM HOME WITH A DX OF OMAR. PATIENT HAS A HX OF GLAUCOMA ,CKD AND HYPERTENSION. RAPID COVID TEST NEGATIVE. ADMINISTERED IVF, AND CONTINUED HOME MEDS. CONSULTED WITH DATA ANALYST AND GI FOR DIARRHEA. DR ABDUL ORDERED C-DIFF . DC PLAN TO GO HOME WHEN STABLE CM TO FOLLOW Addendum: 12/30/20 at 1144 by Luisana Valenzuela RN DC PLANNING: SCHEDULED HEMODIALYSIS TODAY. DISCUSSED WITH DR HE CINTRON REGARDING THE OUT PT DIALYSIS ,PER MD SINCE PT LIVES AT [place] CAN GO TO [facility]. CALLED LOCATED WITHIN [facility] [phone] SPOKE WITH JOCY , FAXED ALL PAPER WORK TO [phone]. CM TO FOLLOW Addendum: 12/30/20 at 1510 by Brooke Mckinney CM DC HYDRAULIC ASSEMBLER: FOLLOWED UP WITH JOSEPH AT [facility] THEY ARE STILL REVIEWING PATIENTS CLINICALS Addendum: 12/31/20 at 0952 by Brooke Mckinney CM DC HYDRAULIC ASSEMBLER: FOLLOWED UP WITH [facility]. PATIENTS CHAIR TIME WILL BE M-W-F AT 1:30 PM Addendum: 01/01/21 at 1442 by Luisana Valenzuela RN DC PLANNING: FAXED HOME HEALTH ORDER TO [facility] FOR HOME SAFETY EVAL AND MEDICATIONS. OSWALD TO FOLLOW Addendum: 01/01/21 at 1538 by Sampson VAN VIOLETA CONTACTED [facility] AND SPOKE TO ILIANA. VIOLETA PROVIDED AUTH [id number]. ILIANA STATED SHE WOULD CONTACT PATIENT REGARDING HH. VIOLETA ALSO CONTACTED [facility] TO INFORM THEM THAT PATIENT WILL BE DISCHARGING TODAY. Addendum: 01/01/21 at 1616 by Sampson VAN VIOLETA FAXED TRANSPORTATION REQUEST TO [facility] [phone]. VIOLETA CONTACTED TRANSPORTATION DEPARTMENT [phone] AND SPOKE TO SHELLEY. VIOLETA VERIFIED THAT TRANSPORTATION FORM WAS RECEIVED. SHELLEY STATED THAT SHE WILL PROCESS TRANSPORTATION REQUEST. Addendum: 01/01/21 at 4872 by Luisana Valenzuela RN DC PLANNING: PER DR JAVIER PT IS NOT STABLE TO BE DISCHARGED. CALLED [facility] FOR DIALYSIS SPOKE WITH YANIRA AND CANCELED THE TRANSPORT. CM TO FOLLOW Addendum: 01/02/21 at 0822 by Sampson Covarrubias SS VIOLETA CONTACTED FARNAZ FROM [facility] AND INFORMED HER THAT PATIENT IS STILL INPATIENT. FARNAZ STATED SHE WOULD INFORM STAFF THAT PATIENT WILL NOT BE COMING IN FOR DIALYSIS TODAY.
[2020-12-29] MEDS: INSULIN LISPRO SLIDING SCALE 100 UNITS/ML VIAL SUBQ PRN ×2 (12:00→21:54)
[2020-12-29] MEDS ORDERED: traMADol 50 MG TAB PO PRN (14:05)
[2020-12-29 15:04] LABS: ALBUMIN 2.3 g/dL (3.4-5.0); BILIRUBIN,DIRECT 0.1 mg/dL (0.0-0.3); TOTAL BILIRUBIN 0.3 mg/dL (0.0-1.0)
--- NOTE | 2020-12-29 15:08 | NUR ---
PT REMOVED IV CATHETER HERSELF, STATES SHE DIDN'T WANT IT ANYMORE.
[2020-12-29 15:12] LABS: THYROID STIMULATING HORMONE 1.54 uIU/mL (0.34-3.74)
[2020-12-29 16:00] VITALS: BP 150/61
--- NOTE | 2020-12-29 17:00 | NUR ---
24G IV CATHETER INSERTED R. HAND, PT TOLERATED PROCEDURE WELL
--- NOTE | 2020-12-29 19:20 | NUR ---
ENDORSED TO CASH TELLER NURSE PT STABLE, NO SIGN OF DISTRESS
--- NOTE | 2020-12-29 19:25 | NUR ---
RECEIVED PT IN STABLE CONDITION FROM AM NURSE. PT IS AWAKE,ALERT AND ORIENTED X2-3. WITH NO C/O ANY DISCOMFORT NOR PAIN NOTED. BEDREST. HAS RT JUGULAR HD CATHETER DRESSING CLEAN AND INTACT. HL ON THE RT FA G#24. FOR HD TOMORROW. WILL CALL FAMILY TO GET CONSENT. BED ON LOW POSITION. SIDE RAILS UP X2 AND CALL LIGHT PLACED WITHIN EASY REACH. WILL CONTINUE TO MONITOR.
[2020-12-29 20:00] VITALS: BP 144/59
[2020-12-29] MEDS: ACETAMINOPHEN 325 MG TAB PO PRN (21:21)
--- NOTE | 2020-12-29 21:27 | NUR ---
PT C/O ITCHING. REFUSED BENADRYL PO .SHE INSISTED ON GETTING IV BENADRYL. SHE SAID THE PILL WON'T WORK. PAGED /Gilma JAVIER. CALLED BACK AND MADE AWARE. HE REFUSED TO HAVE THE BENADRYL PO CHANGE TO IV. WILL HAVE PT KNOW.
--- NOTE | 2020-12-29 21:50 | NUR ---
EXPLAINED TO PT THAT MD DOESN'T WANT TO CHANGE THE BENADRYL PO TO IV. I OFFERED AGAIN THE PO BUT STILL REFUSED.
--- NOTE | 2020-12-29 22:15 | NUR ---
RT JUGULAR HD CATH DRESSING APPLIED FOLLOWED ASEPTIC TECHNIQUE.
--- NOTE | 2020-12-29 22:30 | NUR ---
CHECKED ON PT. SLEEPING. NO S/S OF ITCHING NOTED. WILL CONTINUE TO MONITOR
--- NOTE | 2020-12-29 23:15 | NUR ---
NEED SPECIMEN FOR PCR COVID-19 TEST. KIT PROVIDED BY LAB. SPECIMEN COLLECTED AND WILL SEND TO LAB.
--- NOTE | 2020-12-29 23:35 | NUR ---
PT IS AWAKE AND WANTS SLEEPING PILL. PAGED DR. JAVIER. CALLED BACK BUT REFUSED TO ORDER ANY SLEEPING PILL FOR PT.
--- NOTE | 2020-12-30 00:23 | NUR ---
MADE ROUNDS. PT IS ASLEEP. NO S/S OF ANY DISCOMFORT NOR PAIN NOTED.
--- NOTE | 2020-12-30 02:00 | NUR ---
MADE ROUNDS. PT AWAKE AND C/O ITCHING. REFUSED AGAIN THE BENADRYL AND EVEN ATARAX. HELPED PT WASHED UP UPPER AND LOWER EXTREMITIES TO RELIEVE ITCHING.
--- NOTE | 2020-12-30 02:30 | NUR ---
PT AWAKE, VERBALIZED UNDERSTANDING ABOUT THE NEED FOR HD. CONSENT SIGNED.
--- NOTE | 2020-12-30 03:30 | NUR ---
CHECKED ON PT. SLEEPING AT THIS TIME.
[2020-12-30 04:46] VITALS: BP 143/53
--- NOTE | 2020-12-30 05:30 | NUR ---
C/O ITCHING AGAIN. THIS TIME SHE SAID OK TO GET THE BENADRYL PO. WILL CONTINUE TO MONITOR.
--- NOTE | 2020-12-30 05:42 | NUR ---
CALLED GONZALES AND SHE IS AWARE ABOUT THE SCHEDULED HD OF PT TODAY.
[2020-12-30] MEDS: BLOOD GLUCOSE MONITORING 1 DEV DEV FS SCH ×4 (06:09→20:54)
[2020-12-30] MEDS: INSULIN LISPRO SLIDING SCALE 100 UNITS/ML VIAL SUBQ PRN ×2 (06:14→11:10)
--- NOTE | 2020-12-30 06:14 | NUR ---
BLOOD SUGAR CHECKED THIS AM RESULT 156. INSULIN HUMALOG 2 UNITS SUBQ GIVEN.
--- NOTE | 2020-12-30 07:08 | NUR ---
ENDORSED PT IN STABLE CONDITION TO AM NURSE.
--- NOTE | 2020-12-30 07:20 | NUR ---
RECEIVED CONTINUATION PLAN OF CARE FROM SEAT COVER INSTALLER NURSE. PATIENT IN BED AOX2. RIGHT IJ CATHETER INTACT. IV SITE INTACT AND IN PLACE. HD PROCEDURE TODAY AT 0945. NO SKIN BREAKDOWN. SAFETY MEASURES IN PLACE. CALL LIGHT WITHIN REACH. WILL CONTINUE TO MONITOR NEEDED.
[2020-12-30] MEDS: carvediloL 3.125 MG TAB PO SCH ×2 (08:00→17:02)
--- NOTE | 2020-12-30 08:00 | NUR ---
PATIENT ON HEMODIALYSIS SCHEDULED CHECK VITAL SIGNS PRIOR TO HEMODIALYSIS BP 154/57 PA 97 RR 20 TEMP 100.2 OXYGEN SATURATION 96%. PT IS STABLE NO DISTRESS NOTED.
[2020-12-30 08:06] LABS: ALBUMIN 2.3 g/dL (3.4-5.0); ANION GAP 16.3 (8-16); CARBON DIOXIDE 19.7 mmol/L (21-32); TOTAL BILIRUBIN 0.2 mg/dL (0.0-1.0)
[2020-12-30 08:14] LABS: CREATININE 4.8 mg/dL (0.6-1.3)
[2020-12-30 08:21] LABS: BASOPHILS % (AUTO) 0.1 % (0.0-2.0); EOSINOPHILS % (AUTO) 0.6 % (0.0-4.0); HEMATOCRIT 20.5 % (36-48); LYMPHOCYTES # (AUTO) 0.8 K/uL (2.5-16.5); LYMPHOCYTES % (AUTO) 13.1 % (20.5-51.1); MEAN CORPUSCULAR HEMOGLOBIN 31 pg (27-31); MEAN CORPUSCULAR HGB CONC 33 g/dL (33-37); MEAN CORPUSCULAR VOLUME 93.8 fL (80-94); MONOCYTES # (AUTO) 0.1 K/uL (0.8-1.0); MONOCYTES % (AUTO) 2.3 % (1.7-9.3); NEUTROPHILS # (AUTO) 4.9 K/uL (1.8-7.7); NEUTROPHILS % (AUTO) 83.9 % (42.2-75.2); PLATELET COUNT (AUTO) 139 K/uL (140-450); RED BLOOD CELL COUNT(AUTO) 2.18 MIL/uL (4.20-5.40); RED CELL DISTRIBUTION WIDTH 12.9 % (11.6-13.7); WHITE BLOOD COUNT (AUTO) 5.8 K/uL (4.8-10.8)
[2020-12-30] MEDS: PANTOPRAZOLE 40 MG TABEC PO SCH (08:23)
--- NOTE | 2020-12-30 08:35 | NUR ---
PATIENT MEDICATION DUE GIVEN. PATIENT IS ON HEMODIALYSIS. NO DISTRESS NOTED AT THIS TIME. WILL MONITOR NEEDED.
--- NOTE | 2020-12-30 08:53 | NUR ---
DIALYSIS NURSE UNABLE TO HD PATIENT DUE TO NO RETURN FROM THE RIGHT IJ CATHETER. DR CUTLER MADE AWARE AND ORDERED FOR ACTIVASE, ALSO SAID LATER ON TODAY TO DO A HD AGAIN. PATIENT IS IN STABLE CONDITION. WILL MONITOR NEEDED.
--- NOTE | 2020-12-30 09:00 | NUR ---
CRITICAL VALUE RECEIVED FROM LABORATORY HGB 6.[address] JAVIER AWARE AND WAITING FOR ORDERS.
[2020-12-30 09:01] LABS: HEMOGLOBIN 6.7 g/dL (12.0-16.0)
[2020-12-30 09:06] LABS: HEPATITIS A ANTIBODY IGM Negative (Negative); HEPATITIS B CORE AB TOTAL Negative (Negative); HEPATITIS B SURFACE ANTIBODY Non Reactive (.); HEPATITIS B SURFACE ANTIGEN Negative (Negative)
--- NOTE | 2020-12-30 09:20 | NUR ---
DR JAVIER ORDERED 1 UNIT RBC FOR BLOOD TRANSFUSION.
--- NOTE | 2020-12-30 09:25 | NUR ---
RECEIVED BOTH THE ACTIVASE 2MG/ML ONE FOR EACH PORT MEDICATION OF RIGHT IJ CATHETER. GAVE TO DIALYSIS TO ADMINISTER.
[2020-12-30] MEDS ORDERED: ALTEPLASE 2 MG VIAL MC SCH ×2 (09:30)
--- NOTE | 2020-12-30 11:13 | NUR ---
TALKED TO DR JAVIER AND WANTS TO DO BLOOD TRANSFUSION DURING DIALYSIS. DIALYSIS NURSE ANT IS AWARE.
--- NOTE | 2020-12-30 11:21 | NUR ---
PATIENT BLOOD SUGAR NOTED 163. GIVEN 2 UNITS OF HUMALOG INSULIN PER DR ORDER. PATIENT IN STABLE CONDITION. WILL MONITOR NEEDED.
[2020-12-30 12:00] VITALS: BP 135/72
--- NOTE | 2020-12-30 13:21 | NUR ---
OBTAINED CONSENT FOR THE PLACEMENT TUNNEL HEMODIALYSIS PERMACATH.
[2020-12-30] MEDS: ACETAMINOPHEN 325 MG TAB PO PRN (13:49)
--- NOTE | 2020-12-30 13:51 | NUR ---
PATIENT VERBALIZED MILD PAIN OF 4/10. PAIN MEDICATION GIVEN PER MD ORDERS. WILL CONTINUE TO MONITOR NEEDED.
--- NOTE | 2020-12-30 14:00 | NUR ---
DR JAVIER AWARE OF PATIENT NOT ABLE TO DO HEMODIALYSIS TODAY AND BLOOD TRANSFUSION OF 1 UNIT PRBC TODAY AND ORDERED FUROSEMIDE 40 MG IV AFTER TRANSFUSION.
[2020-12-30] MEDS ORDERED: FUROSEMIDE 40 MG/4 ML VIAL IVP SCH (14:30)
--- NOTE | 2020-12-30 15:05 | NUR ---
BLOOD TRANSFUSION STARTED AT 1505. PATIENT SHOWING NO SIGNS OF DISTRESS. WILL MONITOR NEEDED.
[2020-12-30] MEDS: GABAPENTIN 100 MG CAP PO SCH (17:02)
--- NOTE | 2020-12-30 17:08 | NUR ---
MEDICATION DUE GIVEN CHECK VITAL SIGNS PRIOR TO MEDICATION BP 153/74 CO 98 PATIENT IS STABLE AND NO DISTRESS NOTED NO TRANSFUSION REACTION NOTED.
--- NOTE | 2020-12-30 19:15 | NUR ---
ENDORSED TO NIGHT NURSE FOR CONTINUITY OF CARE. PT IS STABLE.
--- NOTE | 2020-12-30 19:18 | NUR ---
ENDORSED CONTINUATION PLAN OF CARE TO RN CLINICAL DOCUMENTATION SPECIALIST NURSE.
--- NOTE | 2020-12-30 19:19 | NUR ---
RECD. RESTING IN BED, AWAKE, A/OX2, CONFUSED AT TIMES. BLOO RESPIRATION EVEN AND UNLABORED. BLOOD TRANSFUSION INFUSING, ALMOST FINISHED, RIGHT FOREARM G20.
--- NOTE | 2020-12-30 19:20 | NUR ---
NO NOTED ALLERGIC REACTION. ON BILATERAL LEG SEQUENTIALS. MADE AWARE OF PLAN TUNNELLED HEMODIALYSIS CATH TOMORROW, NEEDS REINFORCEMENT. DENIES PAIN 0/10.
[2020-12-30 20:00] VITALS: BP 148/69
[2020-12-30] MEDS ORDERED: FUROSEMIDE 40 MG/4 ML VIAL IVP ONE (20:39)
--- NOTE | 2020-12-30 20:47 | NUR ---
RESTING IN BED SLEEPING. LASIX 40MG. IV PUSH GIVEN BY SOSA SILVA PER MD ORDER.
--- NOTE | 2020-12-30 21:00 | NUR ---
Patient's Plan of Care was discussed and reviewed with REVIEW RN: VIELKA GUTIERREZ
--- NOTE | 2020-12-30 23:00 | NUR ---
REMINDED THAT SHE IS NPO PAST MIDNIGHT. NEEDS REINFORCEMENT.
--- NOTE | 2020-12-31 | NUR ---
CHECKED WITH BLOOD BANK, IFA SECOND PACKED CELLS FOR PATIENT IS AVAILABLE FOR STANDBY TOMORROW. LAB SAID THEY NEED A NEW ORDER FOR 1 PACKED CELLS TO BE ABLE TO PREPARE 1 FOR TOMORROW, CHARGE NURSE CHANTAL CHECKED THERE ARE 3 UNITS ORDERED IN ER, NO NEED TO ORDER FOR ANOTHER ONE.
--- NOTE | 2020-12-31 01:00 | NUR ---
WARM BLANKETS GIVEN, MADE COMFORTABLE IN BED.
--- NOTE | 2020-12-31 03:00 | NUR ---
STILL SLEEPING COMFORTABLY IN BED.
[2020-12-31 03:07] LABS: BASOPHILS % (AUTO) 0.1 % (0.0-2.0); EOSINOPHILS % (AUTO) 0.8 % (0.0-4.0); HEMATOCRIT 25.5 % (36-48); HEMOGLOBIN 8.5 g/dL (12.0-16.0); LYMPHOCYTES # (AUTO) 0.9 K/uL (2.5-16.5); MEAN CORPUSCULAR HEMOGLOBIN 30 pg (27-31); MEAN CORPUSCULAR HGB CONC 33 g/dL (33-37); MEAN CORPUSCULAR VOLUME 91.3 fL (80-94); MONOCYTES # (AUTO) 0.3 K/uL (0.8-1.0); MONOCYTES % (AUTO) 5.1 % (1.7-9.3); NEUTROPHILS # (AUTO) 4.6 K/uL (1.8-7.7); PLATELET COUNT (AUTO) 140 K/uL (140-450); RED BLOOD CELL COUNT(AUTO) 2.79 MIL/uL (4.20-5.40); WHITE BLOOD COUNT (AUTO) 5.9 K/uL (4.8-10.8)
[2020-12-31 03:49] LABS: ALBUMIN 2.3 g/dL (3.4-5.0); ANION GAP 14.5 (8-16); CARBON DIOXIDE 21.7 mmol/L (21-32); POTASSIUM 4.2 mmol/L (3.5-5.1); TOTAL BILIRUBIN 0.2 mg/dL (0.0-1.0)
[2020-12-31 03:56] LABS: PROTHROMBIN TIME 9.9 secs (10.8-13.4)
[2020-12-31 04:00] VITALS: BP 155/76
--- NOTE | 2020-12-31 04:00 | NUR ---
NO BM SENT FOR C DIFF TEST, PATIENT HAS NO NOTED DIARRHEA.
[2020-12-31 04:06] LABS: CREATININE 4.3 mg/dL (0.6-1.3)
--- NOTE | 2020-12-31 07:00 | NUR ---
ABLE TO SLEEP WELL. TAKEN TO OR VIA BED ACCOMPANIED BY OR NURSE. ENDORSED TO SOSA CLARK FOR CONTINUITY OF CARE.
[2020-12-31] MEDS ORDERED: BUPIVACAINE-MPF/EPI 0.25% 10 ML VIAL INJ ONE (07:09)
--- NOTE | 2020-12-31 07:12 | NUR ---
RECEIVED REPORT FROM BREAD BAKER RN FOR CONTINUITY OF CARE. PATIENT RESTING IN BED. OR NURSE AT BEDSIDE TO RN DIGESTIVE THE PATIENT FOR PROCEDURE OF TUNNELED CATHETER PLACEMENT FOR DIALYSIS. PER BREAD BAKER RN, PT AAOX2. ON RA. NO ACUTE DISTRESS NOTED. WILL FOLLOW UP WHEN PATIENT COME BACK FROM THE OR.
[2020-12-31] MEDS ORDERED: LIDOCAINE 2% 100 MG/5 ML SYR IVP ONE (07:30)
[2020-12-31] MEDS ORDERED: PROPOFOL 200 MG/20 ML VIAL IV ONE (07:30)
[2020-12-31] MEDS ORDERED: DEXAMETHASONE 4 MG/ML VIAL ONE (07:30)
[2020-12-31] MEDS ORDERED: MIDAZOLAM 2 MG/2 ML VIAL ONE (07:30)
[2020-12-31] MEDS ORDERED: fentaNYL citrate 0.05 MG/ML VIAL ONE (07:30)
[2020-12-31] MEDS ORDERED: SEVOFLURANE 250 ML BTL INH ONE (07:30)
[2020-12-31] MEDS ORDERED: BLOOD GLUCOSE MONITORING 1 DEV DEV FS ONE (08:25)
[2020-12-31] MEDS ORDERED: ONDANSETRON 4 MG/2 ML VIAL IVP PRN (08:25)
--- NOTE | 2020-12-31 09:25 | NUR ---
PATIENT BACK FROM OR S/P TUNNELED CATHETER PLACEMENT FOR HD. PATIENT'S BP BEEN ELEVATED PER OR NURSE. PATIENT SLEEPY BUT AWAKABLE BY VOICE. WILL CONTINUE TO MONITOR.
[2020-12-31 09:30] VITALS: BP 179/87
[2020-12-31] MEDS: PANTOPRAZOLE 40 MG TABEC PO SCH (09:33)
[2020-12-31] MEDS: carvediloL 3.125 MG TAB PO SCH ×2 (09:33→16:46)
[2020-12-31] MEDS: GABAPENTIN 100 MG CAP PO SCH ×3 (09:33→16:46)
--- NOTE | 2020-12-31 09:54 | NUR ---
REPORT TO DR. JAVIER REGARDING THE HIGH BP, NEW ORDER OBTAINED, WILL CARRY OUT.
[2020-12-31] MEDS: hydrALAZINE 25 MG TAB PO SCH ×3 (10:21→16:46)
--- NOTE | 2020-12-31 10:22 | NUR ---
HYDRALAZINE GIVEN FOR HIGH BP 186/74. EDUCATION PROVIDED. WILL CONTINUE TO MONITOR.
[2020-12-31] MEDS: BLOOD GLUCOSE MONITORING 1 DEV DEV FS SCH ×3 (11:45→21:32)
--- NOTE | 2020-12-31 11:46 | NUR ---
BS 144, NO INSULIN COVERAGE NEEDED AT THIS TIME. RESTING IN LEFT LATERAL POSITION. NO ACUTE DISTRESS NOTED. WILL CONTINUE TO MONITOR.
--- NOTE | 2020-12-31 12:30 | NUR ---
PATIENT IS UNDER DIALYSIS. DIALYSIS NURSE AT BEDSIDE. IN STABLE CONDITION. WILL FOLLOW UP
--- NOTE | 2020-12-31 14:32 | NUR ---
DIALYSIS FINISHED WITH 800 ML OUT. BP 146/70. HR 92. WILL CONTINUE TO MONITOR.
[2020-12-31 16:00] VITALS: BP 170/70
--- NOTE | 2020-12-31 16:46 | NUR ---
SCHEDULED MEDICATIONS GIVEN, EDUCATION PROVIDED. PATIENT REFUSED HUMALOG. PER PATIENT, INSULIN CAUSED HER VISION ISSUE. EXPLAINED TO HER THAT SHE HAS GLAUCOMA, ALSO SHE HAS MULTIPLE MEDICAL ISSUES WHICH HAS THE COMPLICATIONS AND CAUSE THE VISION PROBLEM. EXPLAINED TO HER THAT IF BS NOT WELL CONTROLLED WILL CAUSE MORE ISSUES. PATIENT INSIST REFUSE HUMALOG. WILL CONTINUE TO MONITOR.
--- NOTE | 2020-12-31 19:15 | NUR ---
RECD. RESTING IN BED, AWAKE, A/OX2, WITH FORGETFULNESS. REORIENTED TO HOSPITAL SETTING. IV SALINE LOCK AT THE RIGHT HAND G22, PATENT AND INTACT. TUNNELED HEMODIALYSIS CATHETER IN THE RIGHT UPPER CHEST IN PLACE WITH DRESSING. ON BILATERAL LEG SEQUENTIALS. SAFETY MEASURES ENFORCED. BED IN THE LOWEST POSITION, SIDE RAILS UP. INSTRUCTED TO USE CALL LIGHT WHEN NEEDING HELP, DEMONSTRATED HOW TO USE IT. MEDICATIONS AND CARE FOR THE NIGHT DISCUSSED WITH PATIENT. NEEDS REINFORCEMENT. DENIES PAIN 0/10.
[2020-12-31] MEDS ORDERED: bisacodyL 5 MG TABEC PO PRN (19:40)
[2020-12-31] MEDS ORDERED: SODIUM PHOSPHATE 118 ML ENEM RC PRN (19:40)
[2020-12-31 20:00] VITALS: BP 153/68
--- NOTE | 2020-12-31 21:20 | NUR ---
HAD LARGE BM, CLEANSED AND MADE COMFORTABLE IN BED.
[2020-12-31] MEDS: INSULIN LISPRO SLIDING SCALE 100 UNITS/ML VIAL SUBQ PRN (21:34)
[2020-12-31] MEDS: HYDROXYZINE HYDROCHLORIDE 10 MG TAB PO PRN (21:45)
--- NOTE | 2020-12-31 21:45 | NUR ---
WITH ITCHINESS, MEDICATED WITH ATARAX PER MD ORDER.
--- NOTE | 2020-12-31 22:45 | NUR ---
NO ITCHINESS NOTED, SLEEPING COMFORTABLY IN BED.
--- NOTE | 2021-01-01 01:00 | NUR ---
ON HER RIGHT SIDE, SEEPING COMFORTABLY IN BED.
--- NOTE | 2021-01-01 03:00 | NUR ---
COMFORTABLE IN BED ASLEEP.
[2021-01-01 04:00] VITALS: BP 139/48
[2021-01-01] MEDS: BLOOD GLUCOSE MONITORING 1 DEV DEV FS SCH ×4 (06:26→21:00)
--- NOTE | 2021-01-01 06:32 | NUR ---
BS CHECKED - 121. NO COVERAGE. STILL DROWSY IN BED.
--- NOTE | 2021-01-01 07:15 | NUR ---
RECEIVED PATIENT FROM NIGHT NURSE. PATIENT IN BED AWAKE AND ALERT. RESP EVEN AND UNLABORED ON ROOM AIR. PATIENT C/O ITCHINESS. WILL MEDICATE APPROPRIATELY. ENCOURAGED TO AVOID SCRATCHING ON SKIN TO PREVENT SKIN TEAR. PATIENT VERBALIZED UNDERSTANDING. DENIED OF PAIN AT THIS TIME. RH 22G SL. TUNNEL CATH TO RIGHT UPPER CHEST FOR HD. HOB ELEVATED. SAFETY MEASURES IN PLACE. CALL LIGHT WITHIN REACH. WILL CONTINUE TO MONITOR.
--- NOTE | 2021-01-01 07:15 | NUR ---
ENDORSED TO AM SHIFT NURSE FOR CONTINUITY OF CARE.
[2021-01-01 07:37] LABS: BASOPHILS % (AUTO) 0.2 % (0.0-2.0); EOSINOPHILS % (AUTO) 0.1 % (0.0-4.0); HEMATOCRIT 25.1 % (36-48); HEMOGLOBIN 8.3 g/dL (12.0-16.0); LYMPHOCYTES # (AUTO) 1.5 K/uL (2.5-16.5); LYMPHOCYTES % (AUTO) 19.2 % (20.5-51.1); MEAN CORPUSCULAR HEMOGLOBIN 30 pg (27-31); MEAN CORPUSCULAR HGB CONC 33 g/dL (33-37); MEAN CORPUSCULAR VOLUME 91.2 fL (80-94); MONOCYTES # (AUTO) 0.6 K/uL (0.8-1.0); MONOCYTES % (AUTO) 8.3 % (1.7-9.3); NEUTROPHILS # (AUTO) 5.5 K/uL (1.8-7.7); NEUTROPHILS % (AUTO) 72.2 % (42.2-75.2); PLATELET COUNT (AUTO) 168 K/uL (140-450); RED BLOOD CELL COUNT(AUTO) 2.75 MIL/uL (4.20-5.40); RED CELL DISTRIBUTION WIDTH 14.2 % (11.6-13.7); WHITE BLOOD COUNT (AUTO) 7.7 K/uL (4.8-10.8)
[2021-01-01] MEDS: hydrALAZINE 25 MG TAB PO SCH ×3 (08:16→17:00)
[2021-01-01] MEDS: carvediloL 3.125 MG TAB PO SCH ×2 (08:17→17:00)
[2021-01-01] MEDS: POLYETHYLENE GLYCOL 17 GM/PKT PO SCH (08:17)
[2021-01-01] MEDS: PANTOPRAZOLE 40 MG TABEC PO SCH (08:17)
[2021-01-01] MEDS: GABAPENTIN 100 MG CAP PO SCH ×2 (08:17→12:03)
[2021-01-01] MEDS: HYDROXYZINE HYDROCHLORIDE 10 MG TAB PO PRN (08:17)
--- NOTE | 2021-01-01 08:33 | NUR ---
PATIENT IN BED AWAKE AND ALERT. RESP EVEN AND UNLABORED ON ROOM AIR. ATARAX GIVEN FOR C/O ITCHINESS. MORNING ROUTINE MEDICATIONS GIVEN. PATIENT TOLERATED WELL. PATIENT ABLE TO MAKE NEEDS KNOWN AND FOLLOW COMMANDS. SMALL RED ITCHY SPOTS NOTED ON BODY. NO OPEN SKIN AT THIS TIME. RH 22G INTACT AND PATENT, SL. PATIENT ENCOURAGED TO USE CALL LIGHT NEEDED FOR ASSIST. PATIENT VERBALIZED UNDERSTANDING. CALL LIGHT WITHIN REACH. WILL CONTINUE TO MONITOR.
[2021-01-01 09:44] LABS: ALBUMIN 2.2 g/dL (3.4-5.0); ANION GAP 14.1 (8-16); CARBON DIOXIDE 25.5 mmol/L (21-32); CREATININE 3.4 mg/dL (0.6-1.3); POTASSIUM 3.6 mmol/L (3.5-5.1); TOTAL BILIRUBIN 0.2 mg/dL (0.0-1.0)
--- NOTE | 2021-01-01 12:10 | NUR ---
BLOOD SUGAR 135. NO INSULIN PROVIDED PER SLIDING SCALE. ROUTINE MEDICATIONS GIVEN. BP 149/61 HR 85. PATIENT TOLERATED WELL. RESP EVEN AND UNLABORED ON ROOM AIR. CALL LIGHT WITHIN REACH. WILL CONTINUE TO MONITOR.
--- NOTE | 2021-01-01 14:25 | NUR ---
PATIENT IN BED SLEEPING, CHEST NOTED RISING. NO NOTED ACUTE S/S DISTRESS. CALL LIGHT WITHIN REACH. WILL CONTINUE TO MONITOR.
[2021-01-01 16:00] VITALS: BP 153/68
--- NOTE | 2021-01-01 16:15 | NUR ---
BLOOD GLUCOSE 138. BP 153/68 85 20 98.6 98% ROOM AIR. PATIENT IS DROWSY AND LETHARGIC. MAKING SOUNDS ON EACH BREATH. NO FACIAL GRIMACE. DR JAVIER AT BEDSIDE FOR ASSESSMENT. PATIENT NOT RESPONDING TO STERNAL RUB. PAIN STIMULI GIVEN TO NAIL BED, PATIENT MADE SLIGHT RESPONSE, IMMEDIATELY FOLLOWS, PATIENT CRIES BUT UNABLE TO VOICE HER NEEDS. RECEIVED ORDER FOR CT HEAD WITHOUT CONTRAST STAT. ORDER CARRIED OUT. WILL CONTINUE TO MONITOR.
[2021-01-01 17:01] LABS: BASOPHILS % (AUTO) 0.1 % (0.0-2.0); EOSINOPHILS # (AUTO) 0.1 K/uL (0-0.4); EOSINOPHILS % (AUTO) 0.9 % (0.0-4.0); HEMATOCRIT 25.2 % (36-48); HEMOGLOBIN 8.4 g/dL (12.0-16.0); LYMPHOCYTES # (AUTO) 1.8 K/uL (2.5-16.5); LYMPHOCYTES % (AUTO) 25.7 % (20.5-51.1); MEAN CORPUSCULAR HEMOGLOBIN 30 pg (27-31); MEAN CORPUSCULAR HGB CONC 33 g/dL (33-37); MEAN CORPUSCULAR VOLUME 90.7 fL (80-94); MONOCYTES # (AUTO) 0.6 K/uL (0.8-1.0); MONOCYTES % (AUTO) 8.4 % (1.7-9.3); NEUTROPHILS # (AUTO) 4.6 K/uL (1.8-7.7); NEUTROPHILS % (AUTO) 64.9 % (42.2-75.2); PLATELET COUNT (AUTO) 171 K/uL (140-450); RED BLOOD CELL COUNT(AUTO) 2.78 MIL/uL (4.20-5.40); RED CELL DISTRIBUTION WIDTH 13.9 % (11.6-13.7); WHITE BLOOD COUNT (AUTO) 7.1 K/uL (4.8-10.8)
[2021-01-01 17:23] LABS: ALBUMIN 2.2 g/dL (3.4-5.0); ANION GAP 9.7 (8-16); CARBON DIOXIDE 27.9 mmol/L (21-32); CREATININE 3.4 mg/dL (0.6-1.3); MAGNESIUM 1.8 mg/dL (1.8-2.4); POTASSIUM 3.6 mmol/L (3.5-5.1); TOTAL BILIRUBIN 0.2 mg/dL (0.0-1.0)
--- NOTE | 2021-01-01 18:35 | NUR ---
PATIENT IN BED SLEEPING, CHEST NOTED RISING. PATIENT ACKNOWLEDGE HER NAME BY GRUNTING. NOT ABLE TO FOLLOW OTHER SIMPLE COMMANDS. ENDORSED PATIENT ICU NURSE FOR CONTINUITY OF CARE.
--- NOTE | 2021-01-01 18:40 | NUR ---
RECEIVED PATIENT FROM TELE NURSE FOR CONTINUITY OF CARE. RESPIRATIONS EVEN, UNLABORED. NO S/S RESPIRATORY DISTRESS. O2SAT 99%. SKIN WARM, DRY. SALINE LOCK TO RIGHT HAND 22G PATENT/INTACT. NO C/O PAIN. NO S/S ACUTE DISTRESS. ABDOMEN SOFT, NONTENDER, NONDISTENDED. BOWEL SOUNDS ACTIVE X4 QUADRANTS. PATIENT IS INCONTINENT OF B/B. PLAN OF CARE DISCUSSED. SAFETY PRECAUTIONS IN PLACE. SEIZURE PRECAUTIONS IN PLACE. FREQUENT ROUNDS BY ALL STAFF. CALL LIGHT WITHIN REACH.
[2021-01-01] MEDS: LABETALOL 100 MG/20 ML VIAL IV PRN (19:10)
[2021-01-01 20:00] VITALS: BP 165/65
--- NOTE | 2021-01-01 20:00 | NUR ---
PATIENT ABLE TO OPEN EYES AND MUMBLE YES/NO. NO S/S DISTRESS. CALL LIGHT WITHIN REACH. SAFETY PRECAUTIONS IN PLACE.
[2021-01-01 21:00] VITALS: BP 155/65
--- NOTE | 2021-01-01 21:45 | NUR ---
DUE MEDS GIVEN. CALL LIGHT WITHIN REACH. SAFETY PRECAUTIONS IN PLACE.
[2021-01-01 22:00] VITALS: BP 153/58
[2021-01-01 23:00] VITALS: BP 148/58
--- NOTE | 2021-01-01 23:00 | NUR ---
INCONTINENT CARE RENDERED. CALL LIGHT WITHIN REACH. SAFETY PRECAUTIONS IN PLACE.
[2021-01-02] VITALS (15 sets, daily range): BP systolic 96–197; BP diastolic 33–85
--- NOTE | 2021-01-02 01:00 | NUR ---
PATIENT MORE ALERT AT THIS TIME. RESTING COMFORTABLY IN BED. CALL LIGHT WITHIN REACH. SAFETY PRECAUTIONS IN PLACE.
[2021-01-02] MEDS: LABETALOL 100 MG/20 ML VIAL IV PRN ×3 (01:52→21:18)
--- NOTE | 2021-01-02 03:30 | NUR ---
PATIENT EATING SNACKS. CONTINUES TO SCRATCH BODY. PROVIDED EDUCATION REGARDING RUBBING AND NOT SCRATCHING SKIN TO PROMOTE SKIN INTEGRITY. PATIENT VERBALIZED UNDERSTANDING BUT NEEDS REINFORCEMENT. CALL LIGHT WITHIN REACH. SAFETY PRECAUTIONS IN PLACE.
[2021-01-02] MEDS: ACETAMINOPHEN 325 MG TAB PO PRN ×2 (03:55→23:22)
[2021-01-02] MEDS ORDERED: HYDROXYZINE HYDROCHLORIDE 25 MG TAB PO PRN (04:10)
--- NOTE | 2021-01-02 05:43 | NUR ---
PATIENT IS SLEEP. CALL LIGHT WITHIN REACH SAFETY PRECAUTIONS IN PLACE.
[2021-01-02 06:05] LABS: ALBUMIN 2.2 g/dL (3.4-5.0); ANION GAP 10.3 (8-16); CARBON DIOXIDE 27.3 mmol/L (21-32); CREATININE 3.7 mg/dL (0.6-1.3); POTASSIUM 3.6 mmol/L (3.5-5.1); TOTAL BILIRUBIN 0.2 mg/dL (0.0-1.0)
[2021-01-02 06:14] LABS: EOSINOPHILS # (AUTO) 0.1 K/uL (0-0.4); HEMATOCRIT 24.9 % (36-48); HEMOGLOBIN 8.3 g/dL (12.0-16.0); LYMPHOCYTES # (AUTO) 1.8 K/uL (2.5-16.5); LYMPHOCYTES % (AUTO) 19.5 % (20.5-51.1); MEAN CORPUSCULAR HEMOGLOBIN 31 pg (27-31); MEAN CORPUSCULAR HGB CONC 33 g/dL (33-37); MEAN CORPUSCULAR VOLUME 91.9 fL (80-94); MONOCYTES # (AUTO) 0.7 K/uL (0.8-1.0); MONOCYTES % (AUTO) 7.5 % (1.7-9.3); NEUTROPHILS # (AUTO) 6.5 K/uL (1.8-7.7); PLATELET COUNT (AUTO) 181 K/uL (140-450); RED BLOOD CELL COUNT(AUTO) 2.71 MIL/uL (4.20-5.40); RED CELL DISTRIBUTION WIDTH 14.2 % (11.6-13.7)
[2021-01-02] MEDS: BLOOD GLUCOSE MONITORING 1 DEV DEV FS SCH ×4 (06:34→21:25)
--- NOTE | 2021-01-02 07:10 | NUR ---
RECEIVED PT FROM RN ICU NURSE DHAVAL RN, PT SLEEPING NO DISTRESS NOTED, DROWSY, AWAKEN TO TO VOICE. PT ON ROOM AIR, NO SOB NOTED, SATURATING @ 95%. IV TO R HAND 22G , PATENT INTACT,SL, TUNNELED CATH TO R UPPER CHEST, DRESSING CLEAN DRY AND INTACT, MULTIPLE SCABS NOTED TO THE SKIN, INITIAL ASSESSMENT DONE, ALL SAFETY PRECAUTION MET, CALL LIGHT WITHIN REACH, WILL CONTINUE TO MONITOR.
[2021-01-02] MEDS: POLYETHYLENE GLYCOL 17 GM/PKT PO SCH (08:21)
[2021-01-02] MEDS: hydrALAZINE 25 MG TAB PO SCH ×3 (08:22→17:10)
[2021-01-02] MEDS: carvediloL 3.125 MG TAB PO SCH ×2 (08:22→17:10)
[2021-01-02] MEDS: PANTOPRAZOLE 40 MG TABEC PO SCH (08:22)
--- NOTE | 2021-01-02 08:22 | NUR ---
DUE MEDICATIONS ADMINISTERED, PT TOLERATED WELL, NO DISTRESS NOTED, WILL CONTINUE TO MONITOR.
--- NOTE | 2021-01-02 11:31 | NUR ---
CHECKED PT BLOOD SUGAR 127, NO INSULIN GIVEN PER PROTOCOL. WILL CONTINUE TO [facility].
--- NOTE | 2021-01-02 12:32 | NUR ---
01/02/21 RD INITIAL ASSESSMENT COMPLETED PLEASE REFER TO NUTRITION ASSESSMENT UNDER CARE ACTIVITY FOR ESTIMATED NUTRITIONAL NEEDS. 1. CONTINUE RENAL CCHO DIET TOLERATED 2. RD WILL FOLLOW UP WITH NUTRITION EDUCATION FOR RENAL DIET. 3. RD TO FOLLOW-UP 3-5 DAYS, MODERATE RISK LUIS LOUIE, RD
[2021-01-02] MEDS ORDERED: SUMAtriptan succinate 50 MG TAB PO SCH (13:30)
--- NOTE | 2021-01-02 14:35 | NUR ---
SPOKE TO PT REGARDING DISCHARGE ORDERS, PT REFUSED BEING DISCHARGE, STATED THAT SHE DOES NOT WANT TO GO HOME UNTIL HER ITCHINESS GOES AWAY. EDUCATE PT THAT DR ORDERED PRN BENADRYL FOR WHEN SHE GOES HOME, PT STATED IT DOES NOT WORK, SHE DOES NOT WANT TO GO HOME. NOTIFIED ORGANIZATIONAL DEVELOPMENT CONSULTANT SHAZIA.
--- NOTE | 2021-01-02 14:40 | NUR ---
SPOKE TO PT ON THE PHONE JIMENA MULLINS AT [phone] REGARDING PT DISCHARGE, PER HE IS NOT GOING TO PICK HER UP, HE WANTS HER TO STAY IN THE HOSPITAL BECAUSE SHE IS STILL ITCHY. NOTIFIED HIM DR CRUZ BENADRYL PRN FOR AT HOME AND DIALYSIS HAS ALREADY BEEN SCHEDULED FOR HER. AND PER DIALYSIS WILL REDUCE ITCHYNESS OVERTIME. STATED HE STILL WANTS HER TO STAY IN THE HOSPITAL AND WOULD NOT PICK HER UP. NOTIFIED CASE MANAGEMENT AND MANNEQUIN MOLD MAKER.
[2021-01-02] MEDS ORDERED: DIPH25SG5 PO (14:56)
[2021-01-02] MEDS ORDERED: HYDR-4420 PO (14:56)
--- NOTE | 2021-01-02 15:00 | NUR ---
IMPREGNATOR OPERATOR SPOKE TO PT AT BEDSIDE.
--- NOTE | 2021-01-02 15:10 | NUR ---
PT SPOKE TO PET AMBASSADOR, PT STILL REFUSES TO GO HOME.
--- NOTE | 2021-01-02 15:26 | NUR ---
DC ELECTRIC CAR OPERATOR: PATIENT IS REFUSING TO GO HOME. SHE COMPLAINS OF ITCHY-NESS. SPOKE TO PATIENTS SON AND [phone] EXPLAINED TO THEM THAT PATIENT IS READY FOR DC AND EVERYTHING HAS BEEN ARRANGED FOR PATIENT. SON TRIED TALKING TO HIS MOTHER SHE STILL REFUSES TO GO. HOUSE LEXI SPOKE TO PATIENT WELL STILL REFUSING. SPOKE TO PATIENT MYSELF EXPLAINED TO HER THAT THERE IS A DISCHARGE ORDER FOR HER AND SHE IS MEDICALLY CLEARED TO GO HOME THAT EVERYTHING WE ARE DOING HERE FOR HER ITCHINESS IS THE SAME SHE COULD DO AT HOME. Addendum: 01/02/21 at 1550 by Brooke Mckinney CM DC ELECTRIC CAR OPERATOR: HUSBANDS NUMBER: HARPREET [phone]
--- NOTE | 2021-01-02 17:10 | NUR ---
SPOKE TO DR. GATES REGARDING PT HAS DC ORDER BUT SBP JUST WENT UP TO 190S, PER DR GATES OK TO DC TO TELE, AND TO DC PT WHEN BP STABILIZED, WILL CONTINUE TO MONITOR.
--- NOTE | 2021-01-02 17:40 | NUR ---
NOTIFIED DR. JAVIER REGARDING PT BP STILL HIGH SBP IN 190S, DUE BP MEDICATIONS ALREADY GIVEN, PRN BP MEDICATION GIVEN, WILL CONTINUE TO MONITOR.
--- NOTE | 2021-01-02 18:29 | NUR ---
PT CONTINUOUSLY HAVING HIGH BP, MEDICATIONS ALREADY GIVEN, WILL ENDORSE TO SENIOR GIS ANALYST, WILL CONTINUE TO MONITOR.
--- NOTE | 2021-01-02 19:00 | NUR ---
PATIENT RECEIVED ALERT AND ORIENTED X 4. DISCUSSED WITH PATIENT RN PLAN OF CARE, FALL AND SAFETY PRECAUTIONARY MEASURES AND RN PLAN OF CARE. PT ON ROOM AIR, NO SOB NOTED, SATURATING @ 95%. IV TO R HAND 22G , PATENT INTACT,SL, TUNNELED CATH TO R UPPER CHEST, DRESSING CLEAN DRY AND INTACT, MULTIPLE SCABS NOTED TO THE SKIN, INITIAL ASSESSMENT DONE, CALL LIGHT WITHIN REACH, WILL CONTINUE TO MONITOR. VITAL SIGNS STABLE. NO ACUTE DISTRESS NOTED.
--- NOTE | 2021-01-02 19:33 | NUR ---
ENDORSED PT TO ENGINEERING RESEARCH MANAGER NURSE ADEOLA SWAN, FOR CONTINUOUS OF CARE.
[2021-01-03] VITALS: BP 180/72
--- NOTE | 2021-01-03 | NUR ---
PATIENT SLEEPING DURING ROUNDING, EASILY AROUSED. FALL AND SAFETY PRECAUTIONARY MEASURES MAINTAINED. NO ACUTE DISTRESS NOTED.
[2021-01-03 00:32] VITALS: BP 148/72
[2021-01-03 02:00] VITALS: BP 148/76
[2021-01-03 04:00] VITALS: BP 138/76
[2021-01-03 05:12] VITALS: BP 130/74
[2021-01-03] MEDS: BLOOD GLUCOSE MONITORING 1 DEV DEV FS SCH (06:46)
[2021-01-03] MEDS: hydrALAZINE 25 MG TAB PO SCH (09:45)
[2021-01-03] MEDS: carvediloL 3.125 MG TAB PO SCH (09:45)
[2021-01-03] MEDS: PANTOPRAZOLE 40 MG TABEC PO SCH (09:45)
[2021-01-03] MEDS: POLYETHYLENE GLYCOL 17 GM/PKT PO SCH (09:46)
[2021-01-03] MEDS: ACETAMINOPHEN 325 MG TAB PO PRN (09:50)
--- NOTE | 2021-01-03 10:20 | NUR ---
Patient discharged home and was given medication prescription, information on disease process and all questions regarding discharge answered. Taken off the unit in wheeled chair via
== END 2021-01-03 10:15 | disposition home or self-care (01) | DRG 812 ==
LOC: MED 02:20 → MTU 07:35 → INTOOBSV 07:35 → OBSVTOIN 12-29 13:46 → MMU 01-01 20:53
PROVIDERS: ADMIT Internal Medicine; ATTEND Internal Medicine
PROC: 02HV33Z Insertion of Infusion Device into Superior Vena Cava, Percutaneous Approach (ICD-10-PCS; principal; 2020-12-29)
PROC: B548ZZA Ultrasonography of Superior Vena Cava, Guidance (ICD-10-PCS; 2020-12-29)
PROC: 30233N1 Transfusion of Nonautologous Red Blood Cells into Peripheral Vein, Percutaneous Approach (ICD-10-PCS; 2020-12-30)
PROC: 02HV33Z Insertion of Infusion Device into Superior Vena Cava, Percutaneous Approach (ICD-10-PCS; 2020-12-31)
PROC: B5181ZA Fluoroscopy of Superior Vena Cava using Low Osmolar Contrast, Guidance (ICD-10-PCS; 2020-12-31)
PROC: 4A00X4Z Measurement of Central Nervous Electrical Activity, External Approach (ICD-10-PCS; 2021-01-02)
DX: T45.0X1A Poisoning by antiallergic and antiemetic drugs, accidental (unintentional), initial encounter (principal); N17.9 Acute kidney failure, unspecified; G92 Toxic encephalopathy; L29.9 Pruritus, unspecified; E87.5 Hyperkalemia; E87.2 Acidosis; E88.09 Other disorders of plasma-protein metabolism, not elsewhere classified; H40.9 Unspecified glaucoma; E87.1 Hypo-osmolality and hyponatremia; I12.9 Hypertensive chronic kidney disease with stage 1 through stage 4 chronic kidney disease, or unspecified chronic kidney disease; E11.22 Type 2 diabetes mellitus with diabetic chronic kidney disease; I16.1 Hypertensive emergency; D64.9 Anemia, unspecified; N18.31 Chronic kidney disease, stage 3a; R19.7 Diarrhea, unspecified; E78.5 Hyperlipidemia, unspecified; Z79.4 Long term (current) use of insulin; Z88.0 Allergy status to penicillin; Z88.8 Allergy status to other drugs, medicaments and biological substances; Z90.49 Acquired absence of other specified parts of digestive tract; Z83.3 Family history of diabetes mellitus; Y92.89 Other specified places as the place of occurrence of the external cause; Z20.822 Contact with and (suspected) exposure to COVID-19
CPT/HCPCS: 36415; 36600; 70450; 71045; 80048; 80053; 80076; 82140; 82272; 82728; 82803; 82948; 83036; 83540; 83735; 84100; 84443; 84484; 85025; 85610; 86140; 86704; 86706; 86708; 86709; 86803; 86886; 86900; 86901; 86920; 87081; 87340; 93005; 94640; 96374; 96375; 96376; 99291; C1894; G0378; J1100; J1200; J1644; J1815; J1885; J1940; J2001; J2250; J2405; J2704; J2765; J2997; J3010; J3490; J7030; J7042; J7613; P9016; Q0163; U0003